=== PATIENT | female | born 1960 | race Caucasian/White ===

== ENCOUNTER 2020-09-17 08:23 | Outpatient (REF) | payer BC, SELFPAY ==
[2020-09-17 09:16] LABS: MANUAL DIFF FLAG NO
[2020-09-17 09:34] LABS: Basophils Percent Auto 0.5 % (0-2); Eosinophils Absolute Auto 0.2 X10*3/uL (0.0-0.4); Eosinophils Percent Auto 2.6 % (0-4); Hematocrit 41.7 % (37-47); Hemoglobin 13.6 g/dl (12.0-16.0); Imm Gran Abs Auto 0.01 X10*3/uL (0.00-0.03); Imm Gran Pct Auto 0.1 % (0.0-0.4); Lymphocytes Absolute Auto 2.9 X10*3/uL (1.2-4.9); Lymphocytes Percent Auto 36.7 % (20-40); Mean Corpuscular HGB Conc 32.6 g/dl (31.0-35.0); Mean Corpuscular Hemoglobin 28.9 pg (27.0-33.0); Mean Corpuscular Volume 88.7 fL (80-98); Mean Platelet Volume 10.2 fL (9.4-12.3); Monocytes Absolute Auto 0.4 X10*3/uL (0.1-1.2); Monocytes Percent Auto 5.6 % (2-11); Neutrophils Absolute Auto 4.3 X10*3/uL (2.0-8.3); Neutrophils Percent Auto 54.5 % (45-73); Platelet Count 230 X10*3/uL (160-400); Red Cell Distribution Width 12.2 % (11.0-16.0); White Blood Count 7.8 X10*3/uL (4.8-10.8)
[2020-09-17 09:36] LABS: Alanine Aminotransferase 35 U/L (0-31); Albumin Level 4.4 g/dL (3.5-5.0); Alkaline Phosphatase 67 U/L (39-117); Anion Gap 11 (12-20); Aspartate Amino Transferase 23 U/L (5-31); Bilirubin Total 0.6 mg/dL (0.0-1.0); Blood Urea Nitrogen 17 mg/dL (9-16); Calcium 9.3 mg/dL (8.4-10.2); Carbon Dioxide 32 mmol/L (22-29); Chloride 101 mmol/L (96-108); Cholesterol 211 mg/dL; Estimated Glomerular Filt Rate > 60; Glucose Fasting 107 mg/dL (60-99); HDL Cholesterol 52 mg/dL; LDL Cholesterol Calculated 129 mg/dl; Potassium 4.2 mmol/l (3.3-5.1); Sodium 140 mmol/L (135-145); Total Protein 7.7 g/dL (6.5-8.0); Triglycerides 153 mg/dL
[2020-09-17 09:44] LABS: Glucose Urine UA NEG (NEG); Leukocyte Esterase Urine NEG (NEG); Nitrite Urine NEG (NEG); Specific Gravity - Urine 1.025 (1.005-1.025); Urine Blood NEG (NEG); Urine Ketones NEG (NEG); Urine Protein NEG (NEG-TRACE)
[2020-09-17 09:48] LABS: Appearance Urine CLEAR; Color Urine YELLOW
[2020-09-17 09:56] LABS: TSH reflex Free T4 1.64 mIU/mL (0.32-4.0)
[2020-09-17 10:47] LABS: RBC Urine 0 /HPF (0); Squamous Epithelial Cell Urine 2+ /LPF; WBC Urine 0 /HPF (0-4)
== END 2020-09-17 08:24 | disposition home or self-care (01) ==
LOC: HO.LAB 08:23
PROVIDERS: PCP Internal Medicine; Visit Provider Internal Medicine
DX: E78.00 Pure hypercholesterolemia, unspecified (principal); I10 Essential (primary) hypertension; R79.89 Other specified abnormal findings of blood chemistry; R73.01 Impaired fasting glucose; K21.9 Gastro-esophageal reflux disease without esophagitis; E66.9 Obesity, unspecified
CPT/HCPCS: 36415; 80053; 80061; 81001; 84443; 85025

== ENCOUNTER 2020-12-17 08:16 | Outpatient (REF) | payer BC, SELFPAY ==
[2020-12-17 09:02] LABS: MANUAL DIFF FLAG NO
[2020-12-17 09:06] LABS: Basophils Percent Auto 0.4 % (0-2); Eosinophils Absolute Auto 0.1 X10*3/uL (0.0-0.4); Eosinophils Percent Auto 1.6 % (0-4); Hematocrit 40.8 % (37-47); Hemoglobin 13.6 g/dl (12.0-16.0); Imm Gran Abs Auto 0.02 X10*3/uL (0.00-0.03); Imm Gran Pct Auto 0.3 % (0.0-0.4); Lymphocytes Absolute Auto 2.5 X10*3/uL (1.2-4.9); Lymphocytes Percent Auto 37.7 % (20-40); Mean Corpuscular HGB Conc 33.3 g/dl (31.0-35.0); Mean Corpuscular Hemoglobin 29.8 pg (27.0-33.0); Mean Corpuscular Volume 89.5 fL (80-98); Mean Platelet Volume 9.9 fL (9.4-12.3); Monocytes Absolute Auto 0.5 X10*3/uL (0.1-1.2); Monocytes Percent Auto 7.4 % (2-11); Neutrophils Absolute Auto 3.5 X10*3/uL (2.0-8.3); Neutrophils Percent Auto 52.6 % (45-73); Platelet Count 221 X10*3/uL (160-400); Red Blood Count 4.56 X10*6/uL (4.20-5.50); Red Cell Distribution Width 13.1 % (11.0-16.0); White Blood Count 6.7 X10*3/uL (4.8-10.8)
[2020-12-17 09:08] LABS: Glucose Urine UA NEG (NEG); Leukocyte Esterase Urine 1+ (NEG); Nitrite Urine NEG (NEG); PH 8.5 (5.0-8.0); Specific Gravity - Urine 1.015 (1.005-1.025); UACC Culture Trigger YES; Urine Blood NEG (NEG); Urine Ketones NEG (NEG); Urine Protein NEG (NEG-TRACE)
[2020-12-17 09:10] LABS: Color Urine YELLOW
[2020-12-17 09:11] LABS: Appearance Urine CLOUDY
[2020-12-17 09:30] LABS: Amorphous Sediment Urine 3+ /LPF; Mucus Urine 1+ /LPF; RBC Urine 0 /HPF (0); Renal Epithelial Cells Urine 1+ /LPF; Squamous Epithelial Cell Urine 3+ /LPF
[2020-12-17 09:41] LABS: Alanine Aminotransferase 71 U/L (0-31); Albumin Level 4.4 g/dL (3.5-5.0); Alkaline Phosphatase 76 U/L (39-117); Anion Gap 13 (12-20); Aspartate Amino Transferase 41 U/L (5-31); Bilirubin Total 0.7 mg/dL (0.0-1.0); Blood Urea Nitrogen 13 mg/dL (9-16); Calcium 9.6 mg/dL (8.4-10.2); Carbon Dioxide 31 mmol/L (22-29); Chloride 102 mmol/L (96-108); Cholesterol 234 mg/dL; Estimated Glomerular Filt Rate > 60; Glucose Fasting 110 mg/dL (60-99); HDL Cholesterol 56 mg/dL; LDL Cholesterol Calculated 157 mg/dl; Potassium 4.5 mmol/L (3.3-5.1); Sodium 141 mmol/L (135-145); Total Protein 7.8 g/dL (6.5-8.0); Triglycerides 109 mg/dL
== END 2020-12-17 08:17 | disposition home or self-care (01) ==
LOC: HO.LAB 08:16
PROVIDERS: PCP Internal Medicine; Visit Provider Internal Medicine
DX: I10 Essential (primary) hypertension (principal); K21.9 Gastro-esophageal reflux disease without esophagitis; R73.01 Impaired fasting glucose; E78.00 Pure hypercholesterolemia, unspecified; R79.89 Other specified abnormal findings of blood chemistry; E66.9 Obesity, unspecified
CPT/HCPCS: 36415; 80053; 80061; 81001; 81003; 84443; 85025; 87086; 87147

== ENCOUNTER 2021-02-25 08:09 | Outpatient (REF) | payer BC, SELFPAY ==
--- NOTE | ~2021-02-25 | MM_ITS ---
EXAMINATION: MM SCREENING DIGITAL BREAST TOMOSYNTHESIS, BILATERAL CLINICAL INFORMATION: Screening. Asymptomatic. The lifetime risk of breast cancer based on the Tyrer-Cuzick Model is 7%. COMPARISON: Mammography: 10/31/2019, 09/13/2018, 07/21/2016 TECHNIQUE: Digital breast tomosynthesis is performed in both the craniocaudal and mediolateral oblique views along with computer-aided detection (CAD). Synthesized 2D images are generated from the tomosynthesis. Additional left CC view is provided. FINDINGS: There are scattered areas of fibroglandular density (ACR BI-RADS breast composition Category b). There are no significant masses, abnormal calcifications, or other abnormalities. Parenchymal pattern is similar to prior studies. There is no developing density. No significant changes. MM/MM tomosynthesis screening BI IMPRESSION: No mammographic evidence of malignancy. ASSESSMENT: BI-RADS 1: Negative RECOMMENDATION: Routine annual mammography screening. This patient's information was entered into a reminder system with a target due date for their next mammogram.
== END 2021-02-25 08:10 | disposition home or self-care (01) ==
LOC: HO.MAMMO 08:09
PROVIDERS: PCP Internal Medicine; Visit Provider Internal Medicine
DX: Z12.31 Encounter for screening mammogram for malignant neoplasm of breast (principal)
CPT/HCPCS: 77063; 77067

== ENCOUNTER 2021-04-22 07:23 | Outpatient (REF) | payer BC, SELFPAY ==
[2021-04-22 08:45] LABS: MANUAL DIFF FLAG NO
[2021-04-22 08:49] LABS: Basophils Percent Auto 0.5 % (0-2); Eosinophils Absolute Auto 0.2 X10*3/uL (0.0-0.4); Eosinophils Percent Auto 2.7 % (0-4); Hemoglobin 13.3 g/dl (12.0-16.0); Imm Gran Abs Auto 0.02 X10*3/uL (0.00-0.03); Imm Gran Pct Auto 0.2 % (0.0-0.4); Lymphocytes Absolute Auto 2.7 X10*3/uL (1.2-4.9); Lymphocytes Percent Auto 32.8 % (20-40); Mean Corpuscular HGB Conc 32.4 g/dl (31.0-35.0); Mean Corpuscular Hemoglobin 28.7 pg (27.0-33.0); Mean Corpuscular Volume 88.4 fL (80-98); Mean Platelet Volume 10.1 fL (9.4-12.3); Monocytes Absolute Auto 0.5 X10*3/uL (0.1-1.2); Monocytes Percent Auto 6.6 % (2-11); Neutrophils Absolute Auto 4.7 X10*3/uL (2.0-8.3); Neutrophils Percent Auto 57.2 % (45-73); Platelet Count 244 X10*3/uL (160-400); Red Blood Count 4.64 X10*6/uL (4.20-5.50); Red Cell Distribution Width 13.2 % (11.0-16.0); White Blood Count 8.2 X10*3/uL (4.8-10.8)
[2021-04-22 09:11] LABS: Estimated Average Glucose 117 mg/dL; Hemoglobin A1c % 5.7 %
[2021-04-22 09:16] LABS: Alanine Aminotransferase 31 U/L (0-31); Albumin Level 4.3 g/dL (3.5-5.0); Alkaline Phosphatase 76 U/L (39-117); Anion Gap 12 (12-20); Aspartate Amino Transferase 24 U/L (5-31); Bilirubin Total 0.6 mg/dL (0.0-1.0); Blood Urea Nitrogen 19 mg/dL (9-16); Calcium 9.3 mg/dL (8.4-10.2); Carbon Dioxide 31 mmol/L (22-29); Chloride 102 mmol/L (96-108); Cholesterol 209 mg/dL; Estimated Glomerular Filt Rate > 60; Glucose Fasting 109 mg/dL (60-99); HDL Cholesterol 56 mg/dL; LDL Cholesterol Calculated 128 mg/dl; Potassium 3.9 mmol/L (3.3-5.1); Sodium 141 mmol/L (135-145); Total Protein 7.5 g/dL (6.5-8.0); Triglycerides 127 mg/dL
[2021-04-22 09:37] LABS: TSH reflex Free T4 1.57 uIU/mL (0.32-4.0)
[2021-04-22 10:10] LABS: Glucose Urine UA NEG (NEG); Leukocyte Esterase Urine 1+ (NEG); Nitrite Urine NEG (NEG); PH 6.5 (5.0-8.0); Specific Gravity - Urine 1.015 (1.005-1.025); UACC Culture Trigger YES; Urine Blood NEG (NEG); Urine Ketones NEG (NEG); Urine Protein NEG (NEG-TRACE)
[2021-04-22 10:11] LABS: Appearance Urine HAZY; Color Urine YELLOW
[2021-04-22 10:19] LABS: Mucus Urine 1+ /LPF; RBC Urine 0 /HPF (0); Renal Epithelial Cells Urine TRACE /LPF; Squamous Epithelial Cell Urine TRACE /LPF
== END 2021-04-22 07:24 | disposition home or self-care (01) ==
LOC: HO.LAB 07:23
PROVIDERS: PCP Internal Medicine; Visit Provider Internal Medicine
DX: I10 Essential (primary) hypertension (principal); R73.01 Impaired fasting glucose; K21.9 Gastro-esophageal reflux disease without esophagitis; E78.00 Pure hypercholesterolemia, unspecified; E66.9 Obesity, unspecified; R79.89 Other specified abnormal findings of blood chemistry
CPT/HCPCS: 36415; 80053; 80061; 81001; 81003; 83036; 84443; 85025; 87086

== ENCOUNTER 2021-05-27 10:25 | Outpatient (REF) | payer BC, SELFPAY ==
[2021-05-28 09:02] LABS: BV Int Neg Control Negative (Negative); BV Int Pos Control Positive (Positive)
== END 2021-05-27 10:26 | disposition home or self-care (01) ==
LOC: HO.LAB 10:25
PROVIDERS: PCP Internal Medicine; Visit Provider Advanced Practice Midwife
DX: Z01.411 Encounter for gynecological examination (general) (routine) with abnormal findings (principal); N89.8 Other specified noninflammatory disorders of vagina; N95.1 Menopausal and female climacteric states; R35.0 Frequency of micturition
CPT/HCPCS: 87480; 87510; 87660

== ENCOUNTER 2021-08-26 08:24 | Outpatient (REF) | payer BC, SELFPAY ==
[2021-08-26 08:42] LABS: MANUAL DIFF FLAG NO
[2021-08-26 08:59] LABS: Basophils Percent Auto 0.5 % (0-2); Eosinophils Absolute Auto 0.2 X10*3/uL (0.0-0.4); Eosinophils Percent Auto 3.1 % (0-4); Hematocrit 41.6 % (37.0-47.0); Hemoglobin 13.4 g/dl (12.0-16.0); Imm Gran Abs Auto 0.01 X10*3/uL (0.00-0.03); Imm Gran Pct Auto 0.2 % (0.0-0.4); Lymphocytes Absolute Auto 2.4 X10*3/uL (1.2-4.9); Lymphocytes Percent Auto 38.1 % (20-40); Mean Corpuscular HGB Conc 32.2 g/dl (31.0-35.0); Mean Corpuscular Hemoglobin 28.8 pg (27.0-33.0); Mean Corpuscular Volume 89.5 fL (80.0-98.0); Mean Platelet Volume 9.8 fL (9.4-12.3); Monocytes Absolute Auto 0.4 X10*3/uL (0.1-1.2); Monocytes Percent Auto 6.3 % (2-11); Neutrophils Absolute Auto 3.21 x10*3/uL (2.0-8.3); Neutrophils Percent Auto 51.8 % (45-73); Platelet Count 217 X10*3/uL (160-400); Red Blood Count 4.65 X10*6/uL (4.20-5.50); Red Cell Distribution Width 13.1 % (11.0-16.0); White Blood Count 6.2 X10*3/uL (4.8-10.8)
[2021-08-26 09:28] LABS: Alanine Aminotransferase 34 U/L (0-31); Albumin Level 4.3 g/dL (3.5-5.0); Alkaline Phosphatase 70 U/L (39-117); Anion Gap 12 (12-20); Aspartate Amino Transferase 26 U/L (5-31); Bilirubin Total 0.4 mg/dL (0.0-1.0); Blood Urea Nitrogen 14 mg/dL (9-16); Calcium 9.4 mg/dL (8.4-10.2); Carbon Dioxide 30 mmol/L (22-29); Chloride 103 mmol/L (96-108); Cholesterol 190 mg/dL; Estimated Glomerular Filt Rate > 60; Glucose Fasting 107 mg/dL (60-99); HDL Cholesterol 46 mg/dL; LDL Cholesterol Calculated 108 mg/dl; Potassium 4.1 mmol/L (3.3-5.1); Sodium 141 mmol/L (135-145); Total Protein 7.5 g/dL (6.5-8.0); Triglycerides 181 mg/dL
[2021-08-26 09:51] LABS: Vitamin D 25-OH Total 38.7 ng/mL (>30)
[2021-08-26 10:13] LABS: Appearance Urine CLOUDY; Color Urine YELLOW; Glucose Urine UA NEG (NEG); Leukocyte Esterase Urine 1+ (NEG); Nitrite Urine NEG (NEG); PH 7.5 (5.0-8.0); Specific Gravity - Urine 1.015 (1.005-1.025); UACC Culture Trigger YES; Urine Blood NEG (NEG); Urine Ketones NEG (NEG); Urine Protein NEG (NEG-TRACE)
[2021-08-26 10:26] LABS: Renal Epithelial Cells Urine 1+ /LPF; Squamous Epithelial Cell Urine 1+ /LPF
[2021-08-26 10:27] LABS: Amorphous Sediment Urine 3+ /LPF
[2021-08-26 10:49] LABS: Estimated Average Glucose 120 mg/dL; Hemoglobin A1c % 5.8 %
== END 2021-08-26 08:25 | disposition home or self-care (01) ==
LOC: HO.LAB 08:24
PROVIDERS: PCP Internal Medicine; Visit Provider Internal Medicine
DX: K21.9 Gastro-esophageal reflux disease without esophagitis (principal); E55.9 Vitamin D deficiency, unspecified; E78.00 Pure hypercholesterolemia, unspecified; R73.01 Impaired fasting glucose; R79.89 Other specified abnormal findings of blood chemistry; E66.9 Obesity, unspecified; I10 Essential (primary) hypertension
CPT/HCPCS: 36415; 80053; 80061; 81001; 81003; 82306; 83036; 84443; 85025; 87086; 87147

== ENCOUNTER → 2021-10-06 14:38 | Outpatient (BNVA) | payer BC, SELFPAY | PROVIDERS: PCP Internal Medicine; Referring Provider Internal Medicine; Visit Provider Internal Medicine Gastroenterology ==

== ENCOUNTER 2021-11-25 11:25 | Day surgery (SDC) | payer BC, SELFPAY ==
--- NOTE | 2021-11-24 11:47 | HO.ANESPROP2 ---
Documented by User: Ailyn Pelletier NP 11/24/21 11:48 HPI - Anesthesia Eval Consult details Narrative: 61yo F for Upper Endoscopy and Colonoscopy [facility] Active Problems Active Problems: All Active Problems (Updated 09/02/21 @ 11:06 by Sandip Ricardo MD) Chronic sore throat (Acute) Dysphagia (Acute) Solitary bone cyst of right foot (Acute) Varicose veins of both lower extremities with pain (Acute) Aphthous ulcer of mouth (Acute) Obesity (BMI 30-39.9) (Acute) Anxiety (Acute) GERD without esophagitis (Acute) Impaired fasting glucose (Acute) Elevated LFTs (Acute) Pure hypercholesterolemia (Acute) Benign essential hypertension (Acute) Past Medical History Medical History Anxiety Aphthous ulcer of mouth Benign essential hypertension Dysphagia Elevated LFTs GERD without esophagitis Impaired fasting glucose Obesity (BMI 30-39.9) Pure hypercholesterolemia 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 extremities with pain Family History Family History Father Colon cancer Diabetes Mother Diabetes GERD (gastroesophageal reflux disease) Daughter Eating disorder Bipolar 1 disorder Surgical History Surgical History History of biopsy History of bladder surgery History of colectomy History of colonoscopy History of foot surgery History of hemorrhoidectomy History of partial hysterectomy History of removal of cyst S/P bilateral salpingo-oophorectomy Social History Social History Housing: House Alcohol intake: never Patient Tobacco Use Status: Never used Tobacco Second Hand Smoke Exposure: Yes Are you DNR?: No Advance Directives: No Advance Directives Information Provided: No service: No Current occupational status: employed 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 Allergy/AdvReac Type Severity Reaction Status Date / Time latex [Latex] Allergy Intermediate RASH Verified 11/25/21 12:26 shell fish Allergy Unknown Anaphylaxis Verified 11/25/21 12:26 PEANUT BUTTER Allergy Severe ANAPHYLAXIS Uncoded 11/25/21 12:26 Home Medications Medication Instructions Recorded Confirmed Last Taken Type aspirin 81 mg chewable tablet 81 mg PO DAILY 09/28/20 11/20/21 Unknown History multivitamin with minerals 1 tab PO DAILY 05/27/21 11/20/21 Unknown History (Hair,Skin and Nails) calcium carb 300 mg-D3 800 1 tab PO DAILY 10/06/21 11/20/21 Unknown History unit-mag ox 25 mg-photocopying machine operator 0.5 mg-jose-Zn tablet (Caltrate + D3 Plus Minerals) cholecalciferol (vitamin D3) 25 25 mcg PO DAILY 10/06/21 11/20/21 Unknown History mcg (1,000 unit) capsule losartan 100 mg tablet 50 mg PO DAILY tab 10/06/21 11/20/21 11/25/21 History mecobalamin (vitamin B12) 5,000 mcg PO 10/06/21 Unknown History mcg disintegrating tablet Exam Exam Date and Time: November 24, 2021 114 Pertinent Lab Results Pertinent Lab Results: Laboratory Tests 08/26/21 08/26/21 08:33 08:33 WBC 6.2 Hgb 13.4 Hct 41.6 Plt Count 217 Sodium 141 Potassium 4.1 Chloride 103 Carbon Dioxide 30 H BUN 14 Creatinine 0.73 Assessment and Plan Assessment Anesthesia Assessment: Chart Reviewed Documented by User: Whitney Downey MD 11/25/21 13:02 PMFSH Past Medical History Medical History Anxiety Aphthous ulcer of mouth Benign essential hypertension Dysphagia Elevated LFTs GERD without esophagitis Impaired fasting glucose Obesity (BMI 30-39.9) Pure hypercholesterolemia 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 extremities with pain Family History Family History Father Colon cancer Diabetes Mother Diabetes GERD (gastroesophageal reflux disease) Daughter Eating disorder Bipolar 1 disorder Surgical History Surgical History History of biopsy History of bladder surgery History of colectomy History of colonoscopy History of foot surgery History of hemorrhoidectomy History of partial hysterectomy History of removal of cyst S/P bilateral salpingo-oophorectomy History of Problems with Anesthesia: No Social History Social History Housing: House Alcohol intake: never Patient Tobacco Use Status: Never used Tobacco Second Hand Smoke Exposure: Yes Are you DNR?: No Advance Directives: No Advance Directives Information Provided: No service: No Current occupational status: employed 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 Allergy/AdvReac Type Severity Reaction Status Date / Time latex [Latex] Allergy Intermediate RASH Verified 11/25/21 12:26 shell fish Allergy Unknown Anaphylaxis Verified 11/25/21 12:26 PEANUT BUTTER Allergy Severe ANAPHYLAXIS Uncoded 11/25/21 12:26 Home Medications Medication Instructions Recorded Confirmed Last Taken Type aspirin 81 mg chewable tablet 81 mg PO DAILY 09/28/20 11/20/21 Unknown History multivitamin with minerals 1 tab PO DAILY 05/27/21 11/20/21 Unknown History (Hair,Skin and Nails) calcium carb 300 mg-D3 800 1 tab PO DAILY 10/06/21 11/20/21 Unknown History unit-mag ox 25 mg-photocopying machine operator 0.5 mg-jose-Zn tablet (Caltrate + D3 Plus Minerals) cholecalciferol (vitamin D3) 25 25 mcg PO DAILY 10/06/21 11/20/21 Unknown History mcg (1,000 unit) capsule losartan 100 mg tablet 50 mg PO DAILY tab 10/06/21 11/20/21 11/25/21 History mecobalamin (vitamin B12) 5,000 mcg PO 10/06/21 Unknown History mcg disintegrating tablet Exam Airway Mallampati Class: II Neck ROM: Full Loose/Missing/Broken Teeth: No Heart: RRR Lungs: CTA Assessment and Plan Assessment Anesthesia Assessment: Anesthesia Plan Discussed Final Anesthetic Review History of Problems with Anesthesia: No NPO: Yes ASA Class: II Final Preanesthetic Review: Meds/Allgs Chart Reviewed, Consent Obtained/Reviewed and Anes Risks/Benef Reviewed Patient Risk: Low Procedure Risk: Low Anesthetic Plan Anesthetic Plan: MAC: Disposition: Standard PACU
[2021-11-25 12:10] VITALS: BP 177/80; PULSE 88; RESP 18; TEMP 36.7; O2SAT 98; BMI 28.4
--- NOTE | 2021-11-25 12:17 | MHC.SHP ---
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) History of Previous Operations: Relevant previous surgery/procedure and date(s) (History of biopsy History of bladder surgery History of colonoscopy History of foot surgery History of hemorrhoidectomy History of partial hysterectomy History of removal of cyst S/P bilateral salpingo-oophorectomy) Allergies: Allergies Allergy/AdvReac Type Severity Reaction Status Date / Time latex [Latex] Allergy Intermediate RASH Verified 11/20/21 10:47 shell fish Allergy Unknown Anaphylaxis Verified 11/20/21 10:47 PEANUT BUTTER Allergy Severe ANAPHYLAXIS Uncoded 11/20/21 10:47 Review of Systems Sugical H&P ROS: Negative: Constitution, Cardiovascular, Respiratory, Neurological, Psychiatric, Hem-Onc, Allergic/Immunologic, Gastrointestinal, Genitourinary, Musculoskeletal, Integumentary, Endocrine and Eyes/Ears/Nose/Throat Exam Surgical H&P Exam: Normal: HEENT, Normal: Heart, Normal: Lungs, Normal: Extremities, Normal: Abdomen, Normal: Skin and Normal: Neurological Plan Diagnosis/Plan: Unchanged I have reviewed the history and physical and performed a pertinent physical examination on my patient. No changes have occurred unless specified.
[2021-11-25] MEDS: Lactated Ringers 1,000 ML 100 ML IVCONT (12:37)
--- NOTE | 2021-11-25 12:45 | P.OP_ITS ---
Operative Note Operative Note Date of Service: 11/25/21 Narrative: Operative Information Procedure Description: EGD, Colonoscopy FLEXIBLE TRANSORAL UPPER GASTROINTESTINAL ENDOSCOPY AND COLONOSCOPY PROCEDURE NOTE UPPER ENDOSCOPY Consent: Indications for the procedure and potential complications of bleeding, perforation, reaction to medications and missed diagnosis were discussed with the patient and informed consent was obtained. Instrument: Olympus GIF H 190 J mid size upper endoscope Monitoring: Vital signs and clinical assessment, continuous EKG monitoring, Pulse oximetry, Carbon Dioxide monitoring and blood pressure monitoring were done throughout the procedure. Procedure: The patient was placed in the left lateral decubitis position and pre-procedure medications were administered and a bite block was placed. The endoscope was inserted into the mouth and advanced under direct vision to the third part of duodenum. A careful inspection was made as the upper endoscope was withdrawn including a retroflexed examination of the proximal stomach; Findings and interventions are described below. Findings: Larynx:normal Esophagus: GE junction at 38 cm, diaphragm hiatus at 38 cm, mild erythema and edema of GEJ, bx taken from GEJ and random esophagus. Balloon dilation done to 18 mm at LES and UES, small bruise seen at UES. LES did seem lax. non obstructive schatzki ring seen. Stomach: Many fundic gland appearing polyps, some on larger side, biopsies taken. Few polyps were removed with cold snare as they had pit pattern suggestive of adenoma, measuring about 8-10 mm. Biopsies were obtained. Grade 3 flap valve on retroflexed examination of the cardia. Duodenum: Normal bulb and descending duodenum, bx taken Intervention: Biopsies as noted above, balloon dilation, snare polypectomy COLONOSCOPY Instrument: Olympus variable stiffness pediatric scope 190L Colonoscopy Monitoring: Vital signs and clinical assessment, continuous EKG monitoring, Pulse oximetry, Carbon Dioxide monitoring and blood pressure monitoring were done throughout the procedure. Colon withdrawal time was 6 minutes. Procedure: The patient was placed in the left lateral decubitis position and pre-procedure medications were administered. After a digital rectal examination of the ano-rectum, the video colonoscope was inserted into the rectum and advanced through the colon to the cecum/TI. The colonoscope was slowly withdrawn in a retrograde panoramic fashion and the colon mucosa was carefully examined including a retroflexed view of the rectum. Findings and interventions are described below. Procedure Difficulty: easy Findings: Terminal Ileum-normal Cecum:normal Ascending Colon: normal Transverse Colon -normal Descending Colon:normal Sigmoid Colon: normal Rectum: Retroflexion with small internal hemorrhoids, grade I Anorectum - normal Colon preparation: [place] Bowel Preparation Scale Right colon; 2 Transverse colon: 2 Left colon; 2 (0 = Unprepared colon segment with mucosa not seen due to solid stool that cannot be cleared. 1 = Portion of mucosa of the colon segment seen, but other areas of the colon segment not well seen due to staining, residual stool and/or opaque liquid. 2 = Minor amount of residual staining, small fragments of stool and/or opaque liquid, but mucosa of colon segment seen well. 3 = Entire mucosa of colon segment seen well with no residual staining, small fragments of stool or opaque liquid) Impression and Post Procedure Diagnosis: Endoscopy Findings: schatzki ring lax LES gastric polyps Colonoscopy Findings: internal hemorrhoids Plan: Await Pathology results Repeat Colonoscopy in 10 years or earlier if clinically indicated High fiber diet leaflet avoid straining at stool, epsom salts and sitz bath, anusol supps or cream may have to change PPI to H2 fidel or carafate Above findings were reviewed with the patient and relevant handouts were provided if indicated.
--- NOTE | 2021-11-25 12:45 | PM.OP ---
Brief Operative Note Date of Service: 11/25/21 Pre-op diagnosis: dysphagia, colon screening Post-op diagnosis: same Procedure: see op note Surgeon: Galen Levi MD Anesthesia: MAC Was an Repairer Resistance Welding Machines used for this Procedure?: No Estimated blood loss (mL): 0 Condition: stable Disposition: PACU
[2021-11-25 13:45] VITALS: BP 99/48; PULSE 69; RESP 18; TEMP 36.3; O2SAT 97
[2021-11-25 14:00] VITALS: BP 132/75; PULSE 57; RESP 18; TEMP 36.3; O2SAT 99
== END 2021-11-25 14:36 ==
LOC: HO.SSS 11:25
PROVIDERS: PCP Internal Medicine; Visit Provider Internal Medicine Gastroenterology
PROC: (CPT 45378; principal; 2021-11-25 13:00)
DX: Z12.11 Encounter for screening for malignant neoplasm of colon (principal); K64.0 First degree hemorrhoids; K22.2 Esophageal obstruction; K21.9 Gastro-esophageal reflux disease without esophagitis; K22.4 Dyskinesia of esophagus; K31.7 Polyp of stomach and duodenum; K44.9 Diaphragmatic hernia without obstruction or gangrene; I10 Essential (primary) hypertension; F41.1 Generalized anxiety disorder; E78.5 Hyperlipidemia, unspecified; R73.01 Impaired fasting glucose; E66.9 Obesity, unspecified; Z68.31 Body mass index [BMI] 31.0-31.9, adult; Z79.899 Other long term (current) drug therapy; Z91.040 Latex allergy status; Z90.49 Acquired absence of other specified parts of digestive tract
CPT/HCPCS: 45378; 43251; 43249; 43239; 88305; 88342; C1726

== ENCOUNTER 2022-01-06 09:31 | Outpatient (REF) | payer BC, SELFPAY ==
[2022-01-06 10:06] LABS: MANUAL DIFF FLAG NO
[2022-01-06 10:23] LABS: Basophils Percent Auto 0.4 % (0-2); Eosinophils Absolute Auto 0.1 X10*3/uL (0.0-0.4); Eosinophils Percent Auto 1.9 % (0-4); Hemoglobin 13.9 g/dl (12.0-16.0); Imm Gran Abs Auto 0.02 X10*3/uL (0.00-0.03); Imm Gran Pct Auto 0.3 % (0.0-0.4); Lymphocytes Absolute Auto 2.4 X10*3/uL (1.2-4.9); Lymphocytes Percent Auto 33.1 % (20-40); Mean Corpuscular HGB Conc 32.3 g/dl (31.0-35.0); Mean Corpuscular Hemoglobin 28.8 pg (27.0-33.0); Mean Corpuscular Volume 89.2 fL (80.0-98.0); Mean Platelet Volume 10.5 fL (9.4-12.3); Monocytes Absolute Auto 0.5 X10*3/uL (0.1-1.2); Monocytes Percent Auto 6.7 % (2-11); Neutrophils Absolute Auto 4.2 x10*3/uL (2.0-8.3); Neutrophils Percent Auto 57.6 % (45-73); Platelet Count 217 X10*3/uL (160-400); Red Blood Count 4.82 X10*6/uL (4.20-5.50); Red Cell Distribution Width 12.9 % (11.0-16.0); White Blood Count 7.3 X10*3/uL (4.8-10.8)
[2022-01-06 10:49] LABS: Appearance Urine HAZY; Color Urine YELLOW; Estimated Average Glucose 114 mg/dL; Glucose Urine UA NEG (NEG); Hemoglobin A1c % 5.6 %; Leukocyte Esterase Urine 1+ (NEG); Nitrite Urine NEG (NEG); Specific Gravity - Urine 1.015 (1.005-1.025); UACC Culture Trigger YES; Urine Blood NEG (NEG); Urine Ketones NEG (NEG); Urine Protein NEG (NEG-TRACE)
[2022-01-06 11:03] LABS: Alanine Aminotransferase 28 U/L (0-31); Albumin Level 4.3 g/dL (3.5-5.0); Alkaline Phosphatase 73 U/L (39-117); Anion Gap 12 (12-20); Aspartate Amino Transferase 21 U/L (5-31); Bilirubin Total 0.9 mg/dL (0.0-1.0); Blood Urea Nitrogen 12 mg/dL (9-16); Calcium 9.8 mg/dL (8.4-10.2); Carbon Dioxide 32 mmol/L (22-29); Chloride 98 mmol/L (96-108); Cholesterol 174 mg/dL; Estimated Glomerular Filt Rate > 60; Glucose Fasting 100 mg/dL (60-99); HDL Cholesterol 52 mg/dL; LDL Cholesterol Calculated 104 mg/dl; Potassium 3.7 mmol/L (3.3-5.1); Sodium 138 mmol/L (135-145); Total Protein 7.6 g/dL (6.5-8.0); Triglycerides 93 mg/dL
[2022-01-06 11:04] LABS: Squamous Epithelial Cell Urine 1+ /LPF
[2022-01-06 11:05] LABS: Bacteria Urine TRACE /LPF
[2022-01-06 11:27] LABS: TSH reflex Free T4 1.18 uIU/mL (0.32-4.0); Vitamin D 25-OH Total 43.3 ng/mL (>30)
== END 2022-01-06 09:32 | disposition home or self-care (01) ==
LOC: HO.LAB 09:31
PROVIDERS: PCP Internal Medicine; Visit Provider Internal Medicine
DX: I10 Essential (primary) hypertension (principal); E55.9 Vitamin D deficiency, unspecified; E78.00 Pure hypercholesterolemia, unspecified; R73.01 Impaired fasting glucose
CPT/HCPCS: 36415; 80053; 80061; 81001; 82306; 83036; 84443; 85025; 87086; 87147

== ENCOUNTER → 2022-02-19 10:25 | Outpatient (BNVA) | payer BC, SELFPAY | PROVIDERS: PCP Internal Medicine; Referring Provider Internal Medicine; Visit Provider Internal Medicine Gastroenterology | DX: Z13.89 Encounter for screening for other disorder (principal) ==

== ENCOUNTER 2022-02-27 09:50 | Outpatient (REF) | payer BC, SELFPAY ==
--- NOTE | ~2022-02-27 | MM_ITS ---
EXAMINATION: MM SCREENING DIGITAL BREAST TOMOSYNTHESIS, BILATERAL CLINICAL INFORMATION: Screening. Asymptomatic. The lifetime risk of breast cancer based on the Tyrer-Cuzick Model is 5%. COMPARISON: Mammography: 02/25/2021, 10/31/2019, 09/13/2018 TECHNIQUE: Digital breast tomosynthesis is performed in both the craniocaudal and mediolateral oblique views along with computer-aided detection (CAD). Synthesized 2D images are generated from the tomosynthesis. Additional left CC view is provided. FINDINGS: There are scattered areas of fibroglandular density (ACR BI-RADS breast composition Category b). Parenchymal pattern is similar to prior studies. There are minor asymmetries similar to prior exams. No developing density or interval architectural abnormality. There are scattered bilateral round calcifications. Bilateral low axillary tail nodes on MLO views are stable. The skin contours are smooth. There are no significant changes. MM/MM tomosynthesis screening BI IMPRESSION: No mammographic evidence of malignancy. ASSESSMENT: BI-RADS 2: Benign RECOMMENDATION: Routine annual mammography screening. This patient's information was entered into a reminder system with a target due date for their next mammogram.
== END 2022-02-27 09:51 | disposition home or self-care (01) ==
LOC: HO.MAMMO 09:50
PROVIDERS: Visit Provider Internal Medicine
DX: Z12.31 Encounter for screening mammogram for malignant neoplasm of breast (principal)
CPT/HCPCS: 77063; 77067

== ENCOUNTER 2022-03-08 15:26 | Outpatient (REF) | payer BC, SELFPAY ==
[2022-03-11 12:57] LABS: H Pylori Breath Test Negative (Negative)
== END 2022-03-08 15:27 | disposition home or self-care (01) ==
LOC: HO.LNP 15:26
PROVIDERS: PCP Internal Medicine; Referring Provider Internal Medicine; Visit Provider Internal Medicine Gastroenterology
DX: A04.8 Other specified bacterial intestinal infections (principal)
CPT/HCPCS: 83013

== ENCOUNTER 2022-04-28 07:48 | Outpatient (REF) | payer BC, SELFPAY ==
[2022-04-28 08:01] LABS: MANUAL DIFF FLAG NO
[2022-04-28 09:11] LABS: Basophils Percent Auto 0.4 % (0-2); Eosinophils Absolute Auto 0.2 X10*3/uL (0.0-0.4); Eosinophils Percent Auto 2.3 % (0-4); Hematocrit 40.3 % (37.0-47.0); Hemoglobin 12.9 g/dl (12.0-16.0); Imm Gran Abs Auto 0.03 X10*3/uL (0.00-0.03); Imm Gran Pct Auto 0.4 % (0.0-0.4); Lymphocytes Percent Auto 25.6 % (20-40); Mean Corpuscular Hemoglobin 28.4 pg (27.0-33.0); Mean Corpuscular Volume 88.6 fL (80.0-98.0); Mean Platelet Volume 10.7 fL (9.4-12.3); Monocytes Absolute Auto 0.5 X10*3/uL (0.1-1.2); Monocytes Percent Auto 6.2 % (2-11); Neutrophils Absolute Auto 5.1 x10*3/uL (2.0-8.3); Neutrophils Percent Auto 65.1 % (45-73); Platelet Count 236 X10*3/uL (160-400); Red Blood Count 4.55 X10*6/uL (4.20-5.50); White Blood Count 7.9 X10*3/uL (4.8-10.8)
[2022-04-28 09:41] LABS: Alanine Aminotransferase 19 U/L (0-31); Albumin Level 4.3 g/dL (3.5-5.0); Alkaline Phosphatase 77 U/L (39-117); Anion Gap 11 (12-20); Aspartate Amino Transferase 17 U/L (5-31); Bilirubin Total 0.7 mg/dL (0.0-1.0); Blood Urea Nitrogen 14 mg/dL (9-16); Calcium 9.3 mg/dL (8.4-10.2); Carbon Dioxide 32 mmol/L (22-29); Chloride 101 mmol/L (96-108); Cholesterol 209 mg/dL; Estimated Glomerular Filt Rate > 60; Glucose Fasting 99 mg/dL (60-99); HDL Cholesterol 59 mg/dL; LDL Cholesterol Calculated 129 mg/dl; Potassium 3.9 mmol/L (3.3-5.1); Sodium 140 mmol/L (135-145); Total Protein 7.5 g/dL (6.5-8.0); Triglycerides 106 mg/dL
[2022-04-28 10:06] LABS: TSH reflex Free T4 1.84 uIU/mL (0.32-4.0); Vitamin D 25-OH Total 47.4 ng/mL (>30)
[2022-04-28 10:41] LABS: Appearance Urine CLEAR; Color Urine YELLOW; Glucose Urine UA NEG (NEG); Leukocyte Esterase Urine TRACE (NEG); Nitrite Urine NEG (NEG); Urine Blood NEG (NEG); Urine Ketones NEG (NEG); Urine Protein NEG (NEG-TRACE)
[2022-04-28 11:03] LABS: Calcium Oxalate Crystals Urine 4+ /LPF; RBC Urine 0 /HPF (0); Squamous Epithelial Cell Urine 2+ /LPF; WBC Urine 0-2 /HPF (0-4)
== END 2022-04-28 07:49 | disposition home or self-care (01) ==
LOC: HO.LAB 07:48
PROVIDERS: PCP Internal Medicine; Visit Provider Internal Medicine
DX: E78.00 Pure hypercholesterolemia, unspecified (principal); E55.9 Vitamin D deficiency, unspecified; I10 Essential (primary) hypertension
CPT/HCPCS: 36415; 80053; 80061; 81001; 82306; 84443; 85025

== ENCOUNTER 2022-05-19 10:51 | Outpatient (REF) | payer BC, SELFPAY ==
--- NOTE | ~2022-05-19 | MM_ITS ---
EXAMINATION: BONE DENSITOMETRY CLINICAL INDICATION: Asymptomatic postprocedural ovarian failure. COMPARISON: None (current study represents initial baseline exam). TECHNIQUE: Using a Xray Imatek DXA System (software version: 13.1) manufactured by [email or web address], dual-energy x-ray absorptiometry was performed of the lumbar spine and left hip. The images are of good technical quality. Summary results are attached. FINDINGS: AP SPINE L1-L3 (excluding L4): The data of L1-L4 has been changed to exclude the L4 vertebral body, because degenerative changes at this level may cause overestimation of lumbar spine density. BMD 0.781 g/cm2, Z-score -2.3, T-score -3.2, osteoporosis. LEFT FEMUR, NECK: BMD 0.704 g/cm2, Z-score -1.3, T-score -2.4, osteopenia. LEFT FEMUR, TOTAL: BMD 0.740 g/cm2, Z-score -1.4, T-score -2.1, osteopenia. IDENTIFIED RISK FACTORS: Menopause, height loss, bilateral oophorectomy, Thiazide. HISTORY OF FRACTURE: None listed. MEDICATIONS: Calcium, vitamin D. MM/XR DEXA axial skeleton IMPRESSION: 1. DIAGNOSIS: Osteoporosis based on the lowest T-score value of -3.2 in the lumbar spine applying World Health Organization criteria. 2. 10-YEAR FRACTURE RISK PREDICTION, FRAX: According to the guidelines, FRAX calculation should only be performed on patients in the osteopenia bone density category. Therefore, FRAX was not performed on this patient. 3. Treatment Recommendations: NOF guidelines recommend consideration for treatment in postmenopausal women and men age 50 and older presenting with the following: -A hip or vertebral (clinical or morphometric) fracture. -T-score less than or equal to -2.5 at the femoral neck or spine after appropriate evaluation to exclude secondary causes. -Low bone mass at the hip or spine and a 10-year fracture probability by FRAX of greater than or equal to 3% for hip fracture or greater than or equal to 20% for major osteoporotic fracture based on the [place] adapted WHO algorithm. 4. Other Recommendations: All treatment decisions require clinical judgment and consideration of individual patient factors, including patient preferences, comorbidities, previous drug use, risk factors not captured in the FRAX model (e.g. frailty, falls, vitamin D deficiency, increased bone turnover, interval significant decline in bone density) and possible under or overestimation of fracture risk by FRAX. Additional medical evaluation for secondary cause of low bone mineral density may be appropriate. FUTURE SCAN RECOMMENDATION: People with diagnosed cases of osteoporosis or at high risk for fracture should have regular bone mineral density tests. For patients eligible for Medicare, routine testing is allowed once every 2 years. The testing frequency can be increased to one year for patients who have rapidly progressing disease, those who are receiving or discontinuing medical therapy to restore bone mass, or have additional risk factors.
== END 2022-05-19 10:52 | disposition home or self-care (01) ==
LOC: HO.MAMMO 10:51
PROVIDERS: PCP Internal Medicine; Visit Provider Internal Medicine
DX: Z13.820 Encounter for screening for osteoporosis (principal); E89.40 Asymptomatic postprocedural ovarian failure; Z78.0 Asymptomatic menopausal state
CPT/HCPCS: 77080

== ENCOUNTER 2022-09-01 08:04 | Outpatient (REF) | payer BC, SELFPAY ==
[2022-09-01 08:16] LABS: MANUAL DIFF FLAG NO
[2022-09-01 09:09] LABS: Basophils Percent Auto 0.4 % (0-2); Eosinophils Absolute Auto 0.1 X10*3/uL (0.0-0.4); Eosinophils Percent Auto 1.1 % (0-4); Hematocrit 43.3 % (37.0-47.0); Hemoglobin 13.9 g/dl (12.0-16.0); Imm Gran Abs Auto 0.03 X10*3/uL (0.00-0.03); Imm Gran Pct Auto 0.3 % (0.0-0.4); Lymphocytes Absolute Auto 2.6 X10*3/uL (1.2-4.9); Mean Corpuscular HGB Conc 32.1 g/dl (31.0-35.0); Mean Corpuscular Hemoglobin 27.5 pg (27.0-33.0); Mean Corpuscular Volume 85.7 fL (80.0-98.0); Mean Platelet Volume 9.7 fL (9.4-12.3); Monocytes Absolute Auto 0.7 X10*3/uL (0.1-1.2); Monocytes Percent Auto 7.6 % (2-11); Neutrophils Absolute Auto 5.8 x10*3/uL (2.0-8.3); Neutrophils Percent Auto 62.6 % (45-73); Platelet Count 291 X10*3/uL (160-400); Red Blood Count 5.05 X10*6/uL (4.20-5.50); Red Cell Distribution Width 13.2 % (11.0-16.0); White Blood Count 9.2 X10*3/uL (4.8-10.8)
[2022-09-01 09:36] LABS: Alanine Aminotransferase 26 U/L (0-31); Albumin Level 4.6 g/dL (3.5-5.0); Alkaline Phosphatase 75 U/L (39-117); Anion Gap 16 (12-20); Aspartate Amino Transferase 23 U/L (5-31); Bilirubin Total 0.8 mg/dL (0.0-1.0); Blood Urea Nitrogen 13 mg/dL (9-16); Calcium 9.7 mg/dL (8.4-10.2); Carbon Dioxide 27 mmol/L (22-29); Chloride 98 mmol/L (96-108); Cholesterol 184 mg/dL; Estimated Glomerular Filt Rate > 60; Glucose Fasting 114 mg/dL (60-99); HDL Cholesterol 53 mg/dL; LDL Cholesterol Calculated 115 mg/dl; Potassium 3.2 mmol/L (3.3-5.1); Sodium 138 mmol/L (135-145); Total Protein 7.8 g/dL (6.5-8.0); Triglycerides 83 mg/dL
[2022-09-01 09:59] LABS: TSH reflex Free T4 0.99 uIU/mL (0.32-4.0); Vitamin D 25-OH Total 43.5 ng/mL (>30)
[2022-09-01 10:20] LABS: Appearance Urine Clear; Color Urine Yellow; Glucose Urine UA Negative (Negative); Leukocyte Esterase Urine Small (1+) (Negative); Nitrite Urine Negative (Negative); PH 6.5 (5.0-9.0); UMIC TRIGGER UACC YES; Urine Blood Negative (Negative); Urine Ketones Negative (Negative); Urine Protein Negative (Neg-Trace)
[2022-09-01 10:27] LABS: Bacteria Urine None Seen (None Seen); Hyaline Casts Urine 0-2 /LPF (0-2); RBC Urine 0-2 /HPF (0-2); UACC Culture Trigger YES; WBC Urine 0-5 /HPF (0-5)
== END 2022-09-01 08:05 | disposition home or self-care (01) ==
LOC: HO.LAB 08:04
PROVIDERS: PCP Internal Medicine; Visit Provider Internal Medicine
DX: E78.00 Pure hypercholesterolemia, unspecified (principal); E55.9 Vitamin D deficiency, unspecified; I10 Essential (primary) hypertension
CPT/HCPCS: 36415; 80053; 80061; 81001; 82306; 84443; 85025; 87086

== ENCOUNTER 2022-11-17 15:49 | Outpatient (REF) | payer BC, SELFPAY ==
--- NOTE | ~2022-11-17 | XR_ITS ---
EXAMINATION: XR CHEST CLINICAL INFORMATION: Cough COMPARISON: 04/17/2007 TECHNIQUE: 2 views of the chest were obtained. FINDINGS: The lungs are well expanded. There is no focal consolidation, edema, or effusion. No pneumothorax. The cardiomediastinal silhouette is within normal limits. No acute osseous abnormality. Mild degenerative changes of the spine. XR/XR chest 2V IMPRESSION: Clear lungs.
== END 2022-11-17 15:50 | disposition home or self-care (01) ==
LOC: HO.XRAY 15:49
PROVIDERS: PCP Internal Medicine; Visit Provider Internal Medicine
DX: R05.9 Cough, unspecified (principal)
CPT/HCPCS: 71046

== ENCOUNTER 2023-01-19 08:12 | Outpatient (REF) | payer BC, SELFPAY ==
[2023-01-19 08:32] LABS: MANUAL DIFF FLAG NO
[2023-01-19 08:44] LABS: Basophils Percent Auto 0.4 % (0-2); Eosinophils Absolute Auto 0.3 X10*3/uL (0.0-0.4); Eosinophils Percent Auto 4.1 % (0-4); Hematocrit 41.5 % (37.0-47.0); Hemoglobin 13.6 g/dl (12.0-16.0); Imm Gran Abs Auto 0.02 X10*3/uL (0.00-0.03); Imm Gran Pct Auto 0.3 % (0.0-0.4); Lymphocytes Absolute Auto 2.5 X10*3/uL (1.2-4.9); Lymphocytes Percent Auto 31.2 % (20-40); Mean Corpuscular HGB Conc 32.8 g/dl (31.0-35.0); Mean Corpuscular Hemoglobin 28.8 pg (27.0-33.0); Mean Corpuscular Volume 87.7 fL (80.0-98.0); Mean Platelet Volume 9.6 fL (9.4-12.3); Monocytes Absolute Auto 0.5 X10*3/uL (0.1-1.2); Monocytes Percent Auto 6.9 % (2-11); Neutrophils Absolute Auto 4.5 x10*3/uL (2.0-8.3); Neutrophils Percent Auto 57.1 % (45-73); Platelet Count 241 X10*3/uL (160-400); Red Blood Count 4.73 X10*6/uL (4.20-5.50); White Blood Count 7.9 X10*3/uL (4.8-10.8)
[2023-01-19 08:54] LABS: Estimated Average Glucose 114 mg/dL; Hemoglobin A1c % 5.6 %
[2023-01-19 09:18] LABS: Appearance Urine Clear; Color Urine Yellow; Glucose Urine UA Negative (Negative); Leukocyte Esterase Urine Trace (Negative); Nitrite Urine Negative (Negative); PH 7.5 (5.0-9.0); UMIC TRIGGER UACC YES; Urine Blood Negative (Negative); Urine Ketones Negative (Negative); Urine Protein Negative (Neg-Trace)
[2023-01-19 09:20] LABS: Alanine Aminotransferase 22 U/L (0-31); Albumin Level 4.3 g/dL (3.5-5.0); Alkaline Phosphatase 69 U/L (39-117); Anion Gap 12 (12-20); Aspartate Amino Transferase 18 U/L (5-31); Bilirubin Total 0.7 mg/dL (0.0-1.0); Blood Urea Nitrogen 19 mg/dL (9-16); Calcium 9.5 mg/dL (8.4-10.2); Carbon Dioxide 31 mmol/L (22-29); Chloride 102 mmol/L (96-108); Cholesterol 198 mg/dL; Estimated Glomerular Filt Rate > 60; Glucose Fasting 108 mg/dL (60-99); HDL Cholesterol 60 mg/dL; LDL Cholesterol Calculated 123 mg/dl; Potassium 4.1 mmol/L (3.3-5.1); Sodium 141 mmol/L (135-145); Total Protein 7.3 g/dL (6.5-8.0); Triglycerides 77 mg/dL
[2023-01-19 09:21] LABS: Bacteria Urine None Seen (None Seen); Hyaline Casts Urine 0-2 /LPF (0-2); RBC Urine 0-2 /HPF (0-2); WBC Urine 0-5 /HPF (0-5)
[2023-01-19 09:51] LABS: Folate 15.4 ng/mL (> or = 4.0); TSH reflex Free T4 1.63 uIU/mL (0.32-4.0); Vitamin B12 484 pg/mL (200-900); Vitamin D 25-OH Total 59.9 ng/mL (>30)
[2023-01-21 23:33] LABS: TS Negative Control Passed; TS Panel A 0; TS Panel B 0; TS Positive Control Passed; TSpotTB Negative (Negative)
== END 2023-01-19 08:13 | disposition home or self-care (01) ==
LOC: HO.LAB 08:12
PROVIDERS: PCP Internal Medicine; Visit Provider Internal Medicine
DX: Z11.1 Encounter for screening for respiratory tuberculosis (principal); E78.00 Pure hypercholesterolemia, unspecified; E55.9 Vitamin D deficiency, unspecified; I10 Essential (primary) hypertension; R73.01 Impaired fasting glucose; E53.8 Deficiency of other specified B group vitamins
CPT/HCPCS: 36415; 80053; 80061; 81001; 82306; 82607; 82746; 83036; 84443; 85025; 86481

== ENCOUNTER 2023-03-23 11:20 | Outpatient (REF) | payer BC, SELFPAY ==
--- NOTE | ~2023-03-23 | MM_ITS ---
EXAMINATION: MM SCREENING DIGITAL BREAST TOMOSYNTHESIS, BILATERAL CLINICAL INFORMATION: Screening. Asymptomatic. The lifetime risk of breast cancer based on the Tyrer-Cuzick Model is 5%. COMPARISON: Mammography: 02/27/2022, 02/25/2021, 10/31/2019 TECHNIQUE: Digital breast tomosynthesis is performed in both the craniocaudal and mediolateral oblique views along with computer-aided detection (CAD). Synthesized 2D images are generated from the tomosynthesis. FINDINGS: There are scattered areas of fibroglandular density (ACR BI-RADS breast composition Category b). Breast tissue composition borders on heterogeneously dense in the upper outer quadrant. The parenchymal pattern is similar to prior exams. No developing density or architectural abnormality. Scattered bilateral benign round calcifications are present. The axilla and skin contours are unremarkable. There are no significant masses, abnormal calcifications, or other abnormalities. No significant changes from prior studies. MM/MM tomosynthesis screening BI IMPRESSION: No mammographic evidence of malignancy. ASSESSMENT: BI-RADS 2: Benign RECOMMENDATION: Routine annual mammography screening. This patient's information was entered into a reminder system with a target due date for their next mammogram.
== END 2023-03-23 11:21 | disposition home or self-care (01) ==
LOC: HO.MAMMO 11:20
PROVIDERS: PCP Internal Medicine; Visit Provider Internal Medicine
DX: Z12.31 Encounter for screening mammogram for malignant neoplasm of breast (principal)
CPT/HCPCS: 77063; 77067

== ENCOUNTER 2023-04-26 02:13 | Emergency (ER) | payer BC, SELFPAY ==
[2023-04-26 02:25] VITALS: BP 149/77; PULSE 82; RESP 19; TEMP 36.8; O2SAT 100; BMI 29.0
[2023-04-26 03:01] VITALS: BP 148/69; PULSE 78; RESP 16; TEMP 37.2; O2SAT 98
--- NOTE | 2023-04-26 03:05 | MHC.EDTECH ---
PATIENT BLOOD DRAWN AND URINE COLLECTED AND SENT TO LAB .
[2023-04-26 04:00] VITALS: BP 155/75; PULSE 75; RESP 16; TEMP 37.3; O2SAT 98
--- NOTE | 2023-04-26 06:55 | ED.FEMALEGU ---
HPI - Female Genitourinary General Chief complaint: Urogenital-Female Stated complaint: Pain when urinaring Time Seen by Provider: 04/26/23 06:55 Source: patient Mode of arrival: ambulatory Limitations: no limitations History of Present Illness HPI Narrative: 63 yo female presents to the ER for evaluation of suprapubic pain, dysuria, urinary frequency and urgency for the last 1 month, worsening the last few days. She states she has tried OTC Azo without improvement in her symptoms. She states the pain is constant in the subrapubic area, worse with urination. No back pain, flank pain or fevers. No nausea or vomiting. She has had some loose stools lately. She denies getting recurrent UTIs. She reports history of bladder sling x2 in the past with recurrent prolapse and plans to get repair in June with Dr. Gonzalez. She denies any worsening symptoms. MD elicited complaint: dysuria and UTI Onset (ago): week(s) Location of symptoms: suprapubic and urethra Severity: moderate Female Urogenital Radiation: Suprapubic Quality of pain: burning and aching Consistency: constant Vaginal discharge: none Vaginal bleeding: none Urinary symptoms: Dysuria, Urgency and Frequency Exacerbating factors: urination Relieving factors: none Associated symptoms: prolapse (bladder - chronic ) Treatment prior to arrival: OTC urinary analgesics Sexual activity: No Related Data Home Medications Medication Instructions Recorded Confirmed aspirin 81 mg chewable tablet 81 mg PO DAILY 09/28/20 01/26/23 calcium carb 300 mg-D3 800 1 tab PO DAILY 10/06/21 01/26/23 unit-mag ox 25 mg-type copyist 0.5 mg-jose-Zn tablet (Caltrate + D3 Plus Minerals) cholecalciferol (vitamin D3) 25 25 mcg PO DAILY 10/06/21 01/26/23 mcg (1,000 unit) capsule mecobalamin (vitamin B12) 5,000 mcg PO 10/06/21 01/26/23 mcg disintegrating tablet multivit with 1 tab PO DAILY 09/08/22 01/26/23 onfvtjxd-bzaa-RX-lutein 8 mg iron-400 mcg-300 mcg tablet (Multivitamin Women 50 Plus) Previous Rx's Medication Instructions Recorded lorazepam 0.5 mg tablet 0.5 mg PO TID PRN anxiety 90 days 04/15/21 #270 tabs peg-electrolyte solution 420 gram 240 ml PO Q10M #4,000 mL 10/06/21 oral solution (Nulytely Lemon-Cabazon) simethicone 125 mg chewable tablet 125 mg PO TID PRN abdominal 11/12/21 (Gas Relief (simethicone)) distention #90 tabs sucralfate 100 mg/mL oral 10 ml PO TID #400 mL 02/19/22 suspension (Carafate) Ventolin HFA 90 mcg/actuation 2 puff inhalation Q6H PRN 11/23/22 aerosol inhaler (albuterol sulfate) shortness of breath or wheezing 30 days #18 grams losartan 50 mg tablet 50 mg PO DAILY 90 days #90 tabs 01/20/23 bupropion HCl 150 mg 24 hr tablet, 150 mg PO QAM 90 days #90 tabs 01/26/23 extended release hydrochlorothiazide 25 mg tablet 25 mg PO DAILY 90 days #90 tabs 01/26/23 metronidazole 500 mg tablet 500 mg PO BID 7 days #14 tabs 01/26/23 metronidazole 500 mg tablet 500 mg PO Q8H 7 days #21 tabs 02/28/23 fluconazole 150 mg tablet 150 mg PO DAILY 1 day #1 tab 04/15/23 omeprazole 20 mg capsule,delayed 20 mg PO BID 90 days #180 caps 04/15/23 release cefuroxime axetil 250 mg tablet 250 mg PO BID 7 days #14 tabs 04/26/23 phenazopyridine 100 mg tablet 100 mg PO TID PRN pain 6 doses #6 04/26/23 (Pyridium) tabs Allergies Allergy/AdvReac Type Severity Reaction Status Date / Time Peanut Butter Allergy Severe Anaphylaxis Verified 01/26/23 11:55 latex [Latex] Allergy Intermediate RASH Verified 01/26/23 11:55 shellfish derived Allergy Unknown Anaphylaxis Verified 01/26/23 11:55 Review of Systems Review of Systems: Yes all other systems are reviewed and are negative PMFSH Past Medical History Medical History Anxiety Aphthous ulcer of mouth Benign essential hypertension Dysphagia Elevated LFTs GERD without esophagitis Impaired fasting glucose Obesity (BMI 30-39.9) Pure hypercholesterolemia 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 Varicose veins of both lower extremities with pain Surgical History History of biopsy History of bladder surgery History of colectomy History of colonoscopy History of esophagogastroduodenoscopy (EGD) History of foot surgery History of hemorrhoidectomy History of partial hysterectomy History of removal of cyst S/P bilateral salpingo-oophorectomy Family History Family History Father Colon cancer Diabetes Mother Diabetes GERD (gastroesophageal reflux disease) Daughter Eating disorder Bipolar 1 disorder Social History Social History Housing: House Alcohol intake: never Patient Tobacco Use Status: Never used Tobacco Second Hand Smoke Exposure: Yes Advance Directives: No Advance Directives Information Provided: Yes service: No Current occupational status: employed 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 Oriented X3. No acute distress. Head: normocephalic, atraumatic. Eyes: Pupils equal, round and reactive to light. ENT: Pharynx normal. No tonsillar swelling or exudate. Neck: Normal inspection. Neck supple. CVS: Normal heart rate and rhythm. Pulses normal. Respiratory: No respiratory distress. Breath sounds normal. Abdomen: Soft with mild suprapubic tenderness without rebound or guarding, normal active +BS x4. pelvic deferred Skin: Skin warm and dry. Normal skin color. Normal skin turgor. No rashes. Extremities: No lower extremity edema. No joint swelling. Neuro/psych: Oriented X 3. No motor deficit. No sensory deficit. CN II-XII intact. Normal speech and cognition. Medications Administered Discontinued Medications Generic Name Dose Route Start Last Admin Trade Name Freq PRN Reason Stop Dose Admin Ceftriaxone Sodium 1 gm/ 50 mls @ 100 mls/hr 04/26/23 07:05 04/26/23 08:11 Sodium Chloride IV 04/26/23 07:34 100 mls/hr ONCE ONE Administration Sodium Chloride 1,000 mls @ 999 mls/hr 04/26/23 07:15 04/26/23 08:12 Ns IV 04/26/23 08:15 999 mls/hr .Q1H1M SYLVIE Administration Phenazopyridine HCl 100 mg 04/26/23 07:05 04/26/23 08:11 Phenazopyridine Hcl 100 Mg Tablet PO 04/26/23 07:06 100 mg ONCE ONE Administration Medical Decision Making Medical Decision Making [facility] Narrative: 63 yo female presenting with 1 month of urinary symptoms. She is afebrile and not tachycardic on arrival, nontoxic appearing. Her labs show a leukocytosis f 13.1. Normal kidney function. No CVA tenderness on exam. Doubt acute pyelonephritis. She has a grossly positive urinalysis. +RBC in urine likely due to bladder infection/cystitis rather than kidney stone or ascending infection. She is not septic. She was given 1 dose of IV rocephin and pyridium in the ER. She is stable for discharge home with oral antibiotics and outpatient follow up. we discussed return precautions and all questions were answered. Differential Diagnosis Differential Diagnoses: The differential diagnosis associated with the presentation includes acute lower UTI, pyelonephritis, kidney stone, infected bladder sling Admission/Observation Consideration of admission/observation: Escalation of care including admission/observation considered 63 yo female with urinary symptoms x1 month w/ +UTI, microscopic hematuria, leukocytosis and low grade fever. Lab Data [facility] Lab Attestation statement: I reviewed the patient's lab results. leukocytosis, normal kidney function 04/26/23 02:59 04/26/23 02:59 Labs: Lab Results 04/26/23 04/26/23 04/26/23 Range/Units 02:59 02:59 02:59 WBC 13.1 H (4.8-10.8) X10*3/uL RBC 4.66 (4.20-5.50) X10*6/uL Hgb 12.9 (12.0-16.0) g/dl Hct 39.3 (37.0-47.0) % MCV 84.3 (80.0-98.0) fL MCH 27.7 (27.0-33.0) pg MCHC 32.8 (31.0-35.0) g/dl RDW 13.0 (11.0-16.0) % Plt Count 219 (160-400) X10*3/uL MPV 9.5 (9.4-12.3) fL Immature Gran % (Auto) 0.2 (0.0-0.4) % Neut % (Auto) 75.8 H (45-73) % Lymph % (Auto) 14.8 L (20-40) % [place] % (Auto) 7.8 (2-11) % Eos % (Auto) 1.2 (0-4) % Baso % (Auto) 0.2 (0-2) % Lymph # (Auto) 1.9 (1.2-4.9) X10*3/uL [place] # (Auto) 1.0 (0.1-1.2) X10*3/uL Eos # (Auto) 0.2 (0.0-0.4) X10*3/uL Baso # (Auto) 0.0 (0.0-0.2) X10*3/uL Abs Immat Gran (auto) 0.03 (0.00-0.03) X10*3/uL Absolute Neuts (auto) 9.9 H (2.0-8.3) x10*3/uL Absolute Nucleated RBC 0.000 (0.0-0.012) X10*3/uL Nucleated RBC % (auto) 0.0 (0.0-0.2) /100WBC Sodium 141 (135-145) mmol/L Potassium 3.5 (3.3-5.1) mmol/L Chloride 103 (96-108) mmol/L Carbon Dioxide 27 (22-29) mmol/L Anion Gap 15 (12-20) BUN 14 (9-16) mg/dL Creatinine 0.84 (0.5-1.4) mg/dL Estim Creat Clear Calc 71.9 Estimated GFR > 60 Random Glucose 124 H (60-115) mg/dL Calcium 9.9 (8.4-10.2) mg/dL Total Bilirubin 0.9 (0.0-1.0) mg/dL AST 20 (5-31) U/L ALT 18 (0-31) U/L Alkaline Phosphatase 73 (39-117) U/L Total Protein 7.6 (6.5-8.0) g/dL Albumin 4.2 (3.5-5.0) g/dL Urine Color Dark Yellow Urine Appearance Turbid Urine pH 7.0 (5.0-9.0) Ur Specific [place] 1.020 (1.005-1.025) Urine Protein 300 (3+) H (Neg-Trace) mg/dL Urine Glucose (UA) Negative (Negative) mg/dL Urine Ketones Negative (Negative) mg/dL Urine Blood Large (3+) H (Negative) Urine Nitrite Positive H (Negative) Ur Leukocyte Esterase Large (3+) H (Negative) Urine RBC >20 H (0-2) /HPF Urine WBC >50 H (0-5) /HPF Ur Squamous Epith Cells 0-2 (0-2) /HPF Urine Bacteria 4+ (None Seen) Hyaline Casts 0-2 (0-2) /LPF External Record Review External record reviewed: Outpatient record, Prior outpatient labs and Prior outpatient radiology Tests considered The following testing was considered but not selected: CT scan abd/pelvis considered given blood in the urine and leukocytosis Prescription Management I considered prescription management with: Pain Medication and Antibiotic Chronic Conditions Patient?s care impacted by: Other (bladder prolapse) Critical Care Time Critical Care Time Critical Care Time: No Discharge Plan Discharge Clinical Impression: Acute UTI Patient Disposition: Home, Self-Care Instructions: Urinary Tract Infection in Women (DC) Additional Instructions: You have a UTI. You were given 1st dose of IV antibiotics in the ER today. Start the prescribed oral antibiotics 1st thing tomorrow morning. Do not miss any doses and complete the entire course. Drink plenty of fluids and stay hydrated. If you develop new or worsening symptoms call 911 or come back to the ER for further evaluation. Prescriptions: New cefuroxime axetil 250 mg tablet 250 mg PO BID 7 Days Qty: 14 0RF phenazopyridine [Pyridium] 100 mg tablet 100 mg PO TID PRN (Reason: pain) Qty: 6 0RF No Action lorazepam 0.5 mg tablet 0.5 mg PO TID PRN (Reason: anxiety) 90 Days Qty: 270 0RF simethicone [Gas Relief (simethicone)] 125 mg tablet,chewable 125 mg PO TID PRN (Reason: abdominal distention) Qty: 90 0RF albuterol sulfate [Ventolin HFA] 90 mcg/actuation HFA aerosol inhaler 2 puff inhalation Q6H PRN (Reason: shortness of breath or wheezing) 30 Days Qty: 18 0RF losartan 50 mg tablet 50 mg PO DAILY 90 Days Qty: 90 3RF metronidazole 500 mg tablet 500 mg PO Q8H 7 Days Qty: 21 0RF fluconazole 150 mg tablet 150 mg PO DAILY 1 Days Qty: 1 2RF omeprazole 20 mg capsule,delayed release(DR/EC) 20 mg PO BID 90 Days Qty: 180 1RF aspirin 81 mg tablet,chewable 81 mg PO DAILY bupropion HCl 150 mg tablet extended release 24 hr 150 mg PO QAM 90 Days Qty: 90 3RF hydrochlorothiazide 25 mg tablet 25 mg PO DAILY 90 Days Qty: 90 3RF metronidazole 500 mg tablet 500 mg PO BID 7 Days Qty: 14 0RF Multivitamin Women 50 Plus 8 mg iron-400 mcg-300 mcg tablet 1 tab PO DAILY cholecalciferol (vitamin D3) 25 mcg (1,000 unit) capsule 25 mcg PO DAILY mecobalamin (vitamin B12) 5,000 mcg tablet,disintegrating PO Caltrate + D3 Plus Minerals 300 mg-800 unit -25 mg-0.5 mg tablet 1 tab PO DAILY peg-electrolyte soln [Nulytely Lemon-Cabazon] 420 gram recon soln 240 ml PO Q10M Qty: 4000 0RF Rx Instructions: until fecal effluent is clear sucralfate [Carafate] 100 mg/mL suspension 10 ml PO TID Qty: 400 0RF Rx Instructions: swish in mouth and swallow; use after food/drink Referrals: Sandip Ricardo MD [Primary Care Provider] -
[2023-04-26 08:15] VITALS: BP 142/70; PULSE 77; RESP 15; TEMP 36.9; O2SAT 97
== END 2023-04-26 09:02 | disposition home or self-care (01) ==
PROVIDERS: Emergency Provider Emergency Medicine Emergency Medical Services; PCP Internal Medicine
DX: N39.0 Urinary tract infection, site not specified (principal); R30.0 Dysuria; R35.0 Frequency of micturition
CPT/HCPCS: 36415; 80053; 81001; 85025; 87086; 87088; 87186; 96365; 99284; J0696

== ENCOUNTER 2023-05-04 09:05 | Outpatient (REF) | payer BC, SELFPAY ==
[2023-05-04 09:33] LABS: MANUAL DIFF FLAG NO
[2023-05-04 10:43] LABS: Basophils Percent Auto 0.6 % (0-2); Eosinophils Absolute Auto 0.2 X10*3/uL (0.0-0.4); Eosinophils Percent Auto 2.4 % (0-4); Hematocrit 41.7 % (37.0-47.0); Hemoglobin 13.2 g/dl (12.0-16.0); Imm Gran Abs Auto 0.03 X10*3/uL (0.00-0.03); Imm Gran Pct Auto 0.4 % (0.0-0.4); Lymphocytes Absolute Auto 2.3 X10*3/uL (1.2-4.9); Lymphocytes Percent Auto 32.8 % (20-40); Mean Corpuscular HGB Conc 31.7 g/dl (31.0-35.0); Mean Corpuscular Hemoglobin 27.3 pg (27.0-33.0); Mean Corpuscular Volume 86.3 fL (80.0-98.0); Mean Platelet Volume 10.2 fL (9.4-12.3); Monocytes Absolute Auto 0.4 X10*3/uL (0.1-1.2); Neutrophils Absolute Auto 4.1 x10*3/uL (2.0-8.3); Neutrophils Percent Auto 57.8 % (45-73); Platelet Count 257 X10*3/uL (160-400); Red Blood Count 4.83 X10*6/uL (4.20-5.50); Red Cell Distribution Width 12.6 % (11.0-16.0); White Blood Count 7.1 X10*3/uL (4.8-10.8)
[2023-05-04 10:50] LABS: Estimated Average Glucose 108 mg/dL; Hemoglobin A1c % 5.4 %
[2023-05-04 11:31] LABS: Alanine Aminotransferase 23 U/L (0-31); Albumin Level 4.1 g/dL (3.5-5.0); Alkaline Phosphatase 71 U/L (39-117); Anion Gap 16 (12-20); Aspartate Amino Transferase 20 U/L (5-31); Bilirubin Total 0.7 mg/dL (0.0-1.0); Blood Urea Nitrogen 12 mg/dL (9-16); Calcium 10.1 mg/dL (8.4-10.2); Carbon Dioxide 28 mmol/L (22-29); Chloride 101 mmol/L (96-108); Cholesterol 200 mg/dL; Estimated Glomerular Filt Rate > 60; Glucose Fasting 103 mg/dL (60-99); HDL Cholesterol 54 mg/dL; LDL Cholesterol Calculated 123 mg/dl; Potassium 3.9 mmol/L (3.3-5.1); Sodium 141 mmol/L (135-145); Total Protein 7.5 g/dL (6.5-8.0); Triglycerides 116 mg/dL
[2023-05-04 11:50] LABS: Vitamin D 25-OH Total 51.7 ng/mL (>30)
[2023-05-04 12:27] LABS: Appearance Urine Clear; Color Urine Yellow; Glucose Urine UA Negative (Negative); Leukocyte Esterase Urine Negative (Negative); Nitrite Urine Negative (Negative); PH 6.5 (5.0-9.0); Specific Gravity - Urine 1.015 (1.005-1.025); Urine Blood Negative (Negative); Urine Ketones Negative (Negative); Urine Protein Negative (Neg-Trace)
== END 2023-05-04 09:06 | disposition home or self-care (01) ==
LOC: HO.LAB 09:05
PROVIDERS: PCP Internal Medicine; Visit Provider Internal Medicine
DX: R73.01 Impaired fasting glucose (principal); E55.9 Vitamin D deficiency, unspecified; I10 Essential (primary) hypertension; E78.00 Pure hypercholesterolemia, unspecified; R30.0 Dysuria; R05.9 Cough, unspecified
CPT/HCPCS: 36415; 80053; 80061; 81003; 82306; 83036; 84443; 85025

== ENCOUNTER 2023-05-06 15:20 | Outpatient (AMB) | payer BC, SELFPAY ==
--- NOTE | 2023-05-06 16:01 | MHC.OFFWIV ---
Intake Vital Signs 05/06/23 16:03 Height 5 ft 6 in BP 140/80 H Blood Pressure Location Lt brachial Position Sitting Pulse 75 Pulse Source Pulse Oximeter Temp 97.9 F Temp Source Temporal Artery Scan Pulse Oximetry (%) 98 Intake Visit Reasons: EST/cough for over a week Intake Note: pt is here for c/o cough for over a week, feeling fatigue Patient Tobacco Use Status: Never used Tobacco Allergies Peanut Butter Allergy (Severe, Verified 05/06/23 16:02) Anaphylaxis latex [Latex] Allergy (Intermediate, Verified 05/06/23 16:02) RASH shellfish derived Allergy (Unknown, Verified 05/06/23 16:02) Anaphylaxis Do you need a note to return to daycare/school/sports/work: Yes HPI HPI Comments History of Present Illness Details This is a 63-year-old female presenting to the office today for a sick visit. Patient reports a productive cough with yellow sputum x2 weeks. She denies any fevers or chills. She denies any chest pain or shortness of breath other than some mild difficulty breathing when she feels there is phlegm in her throat. She denies any abdominal pain or nausea/vomiting/diarrhea. She denies any other viral URI symptoms including sinus congestion, nasal congestion, rhinorrhea, sore throat, myalgias. She denies any known sick contacts. She denies a history of pneumonia in the past. 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 Varicose veins of both lower extremities with pain Surgical History History of biopsy History of bladder surgery History of colectomy History of colonoscopy History of esophagogastroduodenoscopy (EGD) History of foot surgery History of hemorrhoidectomy History of partial hysterectomy History of removal of cyst S/P bilateral salpingo-oophorectomy Family History Father Colon cancer Diabetes Mother Diabetes GERD (gastroesophageal reflux disease) Daughter Eating disorder Bipolar 1 disorder Social History Housing: House Alcohol intake: never Patient Tobacco Use Status: Never used Tobacco Second Hand Smoke Exposure: Yes service: No Current occupational status: employed 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 Cognitive needs: No Hearing needs: No Vision needs: Yes (reading glasses) Female Reproductive History Menstrual Age of Menarche: 11 Review of Systems Const All systems reviewed & are unremarkable except as noted in HPI and below Reports as per HPI, Reports no additional complaints, Denies chills and Denies fever(s) Eyes Reports as per HPI and Reports no additional complaints Physical Exam Vital Signs: Last Vital Signs Temp 97.9 F 05/06/23 16:03 Pulse 75 05/06/23 16:03 BP 140/80 H 05/06/23 16:03 Pulse Ox 98 05/06/23 16:03 Const General: cooperative, healthy appearing and no acute distress Orientation/consciousness: patient oriented x3 HEENT Head: Yes normal to inspection Ears: hearing grossly normal bilaterally General nose exam: Normal external nose present Face and sinus: Yes normal facial exam Mouth: Normal oral and palatal mucosa present Throat: Yes posterior oropharynx normal Resp Effort & Inspection: normal respiratory effort and able to speak in complete sentences Auscultation: clear to auscultation bilaterally, no crackles, no rales, no rhonchi and no wheezes Cardio Rate: regular rate Rhythm: regular rhythm Heart sounds: no gallops, no murmurs and no rubs Peripheral pulses: Peripheral pulses 2+ throughout Skin General skin exam: no rashes or lesions noted Neuro General: patient oriented x3 Cranial nerves: Yes CN's II-XII intact bilaterally Cognition (Neuro): normal cognition Gait exam (Neuro): Normal gait present Motor exam (neuro): 5/5 motor strength present throughout Results Reviewed Results Reviewed: CXR : Nonspecific diffuse interstitial thickening for which differential considerations include small airways disease, reactive airways disease and atypical/viral infections. Assessment & Plan Assessment & Plan (1) Cough: Code(s): R05.9 - Cough, unspecified Plan This is a 63-year-old female presenting to the office today complaining of a productive cough with yellow sputum. Chest x-ray was obtained, which showed nonspecific diffuse interstitial thickening which could represent reactive airway disease versus viral/atypical infections. Patient denies any fevers or chills, recent WBC count was well within normal limits at 7.1, and she has no tachycardia. Patient is maintaining oxygen saturations on room air. Her lungs are clear to auscultation bilaterally without expiratory wheezing or crackles. Patient was sent home on p.o. azithromycin 500 mg x 1 followed by 250 mg daily x4 days to cover for atypical infection. Patient was advised to follow-up here or the emergency room for worsening or persistent symptoms, fever/chills, or shortness of breath. Patient verbalizes her understanding and she is agreeable with the plan. Medications: New azithromycin For 250 mg dose pack: take 500 mg today (day 1), then 250 mg for 4 days (days 2-5) PO 6 tabs 0RF Coding Level of Care Code Est Pt Level 3 (72297) Diagnoses Cough R05.9
[2023-05-06 16:03] VITALS: BP 140/80; PULSE 75; TEMP 36.6; O2SAT 98
== END 2023-05-06 17:19 | disposition home or self-care (01) ==
PROVIDERS: PCP Internal Medicine; Visit Provider Physician Assistant Medical
DX: R05.9 Cough, unspecified (principal)
CPT/HCPCS: 99213

== ENCOUNTER 2023-05-06 16:21 | Outpatient (REF) | payer BC, SELFPAY ==
--- NOTE | ~2023-05-06 | XR_ITS ---
EXAMINATION: XR CHEST CLINICAL INFORMATION: Cough, unspecified. COMPARISON: Chest radiograph 11/17/2022. TECHNIQUE: 2 views of the chest were obtained. FINDINGS: Stable appearance of the cardiomediastinal silhouette. Mildly increased interstitial thickening compared to 11/17/2022. Streaky opacities in the lower lungs, favored to represent subsegmental atelectasis. No pleural effusion or pneumothorax. Unchanged mild subpleural apical thickening. Thoracic spondylosis. No acute osseous findings. XR/XR chest 2V IMPRESSION: Nonspecific diffuse interstitial thickening for which differential considerations include small airways disease, reactive airways disease and atypical/viral infections.
== END 2023-05-06 16:22 | disposition home or self-care (01) ==
LOC: HO.HMGCX 16:21
PROVIDERS: PCP Internal Medicine; Visit Provider Physician Assistant Medical
DX: R05.9 Cough, unspecified (principal)
CPT/HCPCS: 71046

== ENCOUNTER 2023-05-18 07:57 | Outpatient (AMB) | payer BC, SELFPAY ==
[2023-05-18 08:02] VITALS: BP 142/82; PULSE 75; O2SAT 98; BMI 29.9
--- NOTE | 2023-05-18 08:02 | A.OFFPC_ITS ---
Vital Signs 05/18/23 08:02 Height 5 ft 6 in Weight 83.915 kg BMI 29.9 BP 142/82 H Blood Pressure Location Lt brachial Position Sitting Pulse 75 Pulse Source Pulse Oximeter Pulse Oximetry (%) 98 Oxygen Delivery Method Room Air Intake Visit Reasons: 04/27/23 for UTI Allergies Peanut Butter Allergy (Severe, Verified 05/18/23 08:03) Anaphylaxis latex [Latex] Allergy (Intermediate, Verified 05/18/23 08:03) RASH shellfish derived Allergy (Unknown, Verified 05/18/23 08:03) Anaphylaxis Medication List - Last Reconciled 05/18/23 by JEEVAN Barragan aspirin 81 mg PO DAILY bupropion HCl 150 mg PO QAM 90 days Ca carb-D3-mag yb-txf-pjac-Zn 300 mg-800 unit -25 mg-0.5 mg (Caltrate + D3 Plus Minerals) 1 tab PO DAILY cholecalciferol (vitamin D3) 25 mcg PO DAILY fluconazole 150 mg PO DAILY 1 day hydrochlorothiazide 25 mg PO DAILY 90 days lorazepam 0.5 mg PO TID PRN 90 days losartan 50 mg PO DAILY 90 days mecobalamin (vitamin B12) mcg PO xhtdltdv-prx-xuxi-FA-lutein 8 mg iron-400 mcg-300 mcg (Multivitamin Women 50 Plus) 1 tab PO DAILY omeprazole 20 mg PO BID 90 days simethicone (Gas Relief (simethicone)) 125 mg PO TID PRN sucralfate (Carafate) 10 mL PO TID Ventolin HFA 90 mcg/actuation (albuterol sulfate) 2 puffs inhalation Q6H PRN 30 days NS Tobacco use date assessed: 01/26/23 Fall risk assessment: No Falls in past year Last assessed Fall Risk: 05/18/23 Dental Screening Dental Screen Date: 05/18/23 Did you have a dental visit in the last 12 months?: Yes Did you have a dental problem in the last 6 months where you did not have access to dental care?: No Was dental information given to patient?: Patient has dentist HPI HPI Comments History of Present Illness Details 63-year-old female with history of urinary incontinence S/P bladder sling x2 with recurrent prolapse with plans for repair in [address] Gonzalez at [facility], presents to the office for post ER evaluation. She presented to [facility] ED on 04/26 for evaluation of suprapubic pain, dysuria, and urinary frequency and urgency that had been ongoing for 1 month worsening over the last few days prior to arrival. She had had minimal symptomatic relief from azo. In the ED, there was a leukocytosis of 13.1, vital stable. Urinalysis significant for 3+ leukocytes, positive nitrites, 3+ blood, 3+ protein, positive urinary sediment and 4+ bacteria. She was treated empirically with cefuroxime 250 mg b.i.d. x7 days. Urine culture grew Proteus susceptible to cephalosporins. She reports symptoms have resolved fully. No fevers, chills, dysuria, increased frequency, or urgency. No abd pain or flank pain. Not performing any pelvic floor exercises. She is also reporting ongoing productive cough. Has been chronic for weeks. Reports post nasal drip. Occassional SOB. NO known history of asthma or COPD. NOt a smoker, but exposed to 2nd hand smoke through . [facility] with CXR negative for any bacterial pneumonia but does show evidence of small airways disease or reactive airway disease versus atypical/viral infection. Given duration of symptoms, viral infection seems less likely. She was prescribed azithromycin which did not fully resolve symptoms. Continues with occasionally productive cough worse at night. No fe vers or chills. 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 Varicose veins of both lower extremities with pain Surgical History History of biopsy History of bladder surgery History of colectomy History of colonoscopy History of esophagogastroduodenoscopy (EGD) History of foot surgery History of hemorrhoidectomy History of partial hysterectomy History of removal of cyst S/P bilateral salpingo-oophorectomy Family History Father Colon cancer Diabetes Mother Diabetes GERD (gastroesophageal reflux disease) Daughter Eating disorder Bipolar 1 disorder Social History Housing: House Alcohol intake: never Patient Tobacco Use Status: Never used Tobacco e-Cigarette/Vaping Use: Never Used Second Hand Smoke Exposure: Yes service: No Current occupational status: employed 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 1. Little interest or pleasure in doing things: not at all 2. Feeling down, depressed, or hopeless: not at all 3. Trouble falling or staying asleep, or sleeping too much: not at all 4. Feeling tired or having little energy: not at all 5. Poor appetite or overeating: not at all 6. Feeling bad about yourself - or that you are a failure or have let yourself or your family down: not at all 7. Trouble concentrating on things, such as reading the newspaper or watching television: not at all 8. Moving or speaking so slowly that other people could have noticed. Or the opposite - being so fidgety or restless that you have been moving around a lot more than usual: not at all 9. Thoughts that you would be better off or of hurting yourself in some way: not at all Total score: 0 Depression Screening Interpretation: Negative 80354 - PHQ-9 Billing: Yes Source: Developed by Drs. Willie Burns, Phu Robbins and colleagues, with an educational charlette from [employer]. Thrive Questionnaire Date Thrive assessed: 01/26/23 AUDIT C Alcohol Use Questionnaire (AUDIT-C) 1. How often do you have a drink containing alcohol?: Never 2. How many drinks containing alcohol do you have on a typical day when you are drinking?: 1 or 2 (0) 3. How often do you have six or more drinks on one occasion?: Never Total Score: 0 Score Reviewed/Action Taken: Yes CANDE-7 AMB Questionnaire CANDE-7 Date CANDE - 7 assessed: 01/26/23 Source: Developed by Drs. Willie Burns, Phu Robbins and colleagues, with an educational charlette from [employer]. Review of Systems Const All systems reviewed & are unremarkable except as noted in HPI and below Physical exam (Primary Care) Vital Signs: Last Vital Signs Pulse 75 05/18/23 08:02 BP 142/82 H 05/18/23 08:02 Pulse Ox 98 05/18/23 08:02 Oxygen Delivery Method Room Air 05/18/23 08:02 BMI result Body Mass Index 29.9 Tobacco/Smoking Status: Tobacco use Status Tobacco use date assessed 01/26/23 05/18/23 08:07 Patient Tobacco Use Status Never used Tobacco 05/18/23 08:07 e-Cigarette/Vaping Use Never Used 05/18/23 08:07 PHQ-9: PHQ-9 Score PHQ-9: Total score 0 05/18/23 08:09 Depression Screening Interpretation: Negative Thrive Assessment: Date of Thrive Assessment Date Thrive assessed 01/26/23 05/18/23 08:07 Const Other: Constitutional - Awake and Alert, No apparent distress Eyes - PERRLA, EOMI Cardiovascular - S1S2, RRR, No edema Respiratory - Normal lung expansion, Normal respiratory effort, No respiratory distress, expiratory wheezing RLL Gastrointestinal - NT / ND; +BS; No rebound or guarding Extremities - no calf tenderness bilaterally, no swelling Skin - Warm/Dry Neurological - Alert & oriented x3 Results Reviewed Results Reviewed: CBC, UA/UC, CXR Assessment and Plan Assessment & Plan (1) UTI (urinary tract infection): Code(s): N39.0 - Urinary tract infection, site not specified Plan: Urine culture grew Proteus susceptible to cephalosporins. Repeat urinalysis negative, leukocytosis resolved. Symptoms have also resolved. Follow-up with Urogynecology as scheduled. (2) Female bladder prolapse: Code(s): N81.10 - Cystocele, unspecified Plan: Follow-up with Urogynecology has scheduled in June. Recommend pelvic floor exercises including Kegel exercises. (3) Chronic cough: Code(s): R05.3 - Chronic cough Plan: Patient is reassured that she does not require another round of antibiotic therapy. Chest x-ray reviewed and was negative for any acute bacterial p neumonia but did show evidence of possible small airways disease. Will refer for pulmonary function testing. She is given a course of Tessalon Perles and albuterol inhaler as well as spacer. Consult on use of albuterol inhaler. Recommend Flonase nasal spray to help with postnasal drip. Orders: Orders 2 PFT pulmonary function test Today R05.3 - Chronic cough Medications: New benzonatate 100 mg PO TID PRN 30 caps 0RF cough albuterol sulfate 90 mcg/actuation 2 puffs inhalation Q6H PRN 8.5 grams 0RF shortness of breath or wheezing inhalational spacing device (InspiraChamber spacer) As directed 1 ea 0RF Coding Level of Care Code Est Pt Level 5 (38428) Diagnoses UTI (urinary tract infection) N39.0 Female bladder prolapse N81.10 Chronic cough R05.3 Time Spent (min) 42 Comment time spent reviewing, discussion w/ pt, and documentation
== END 2023-05-18 08:31 | disposition home or self-care (01) ==
PROVIDERS: PCP Internal Medicine; Visit Provider Physician Assistant
DX: N39.0 Urinary tract infection, site not specified (principal); N81.10 Cystocele, unspecified; R05.3 Chronic cough
CPT/HCPCS: 99215

== ENCOUNTER 2023-05-25 10:29 | Outpatient (AMB) | payer BC, SELFPAY ==
--- NOTE | 2023-05-25 10:39 | MHC.PC.OV ---
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: No Accompanied by: Self / Same As Patient Allergies Peanut Butter Allergy (Severe, Verified 05/25/23 11:21) Anaphylaxis latex [Latex] Allergy (Intermediate, Verified 05/25/23 11:21) RASH shellfish derived Allergy (Unknown, Verified 05/25/23 11:21) Anaphylaxis Medication List - Last Reconciled 05/25/23 by Sandip Ricardo MD albuterol sulfate 90 mcg/actuation 2 puffs inhalation Q6H PRN aspirin 81 mg PO DAILY benzonatate 100 mg PO TID PRN bupropion HCl 150 mg PO QAM 90 days Ca carb-D3-mag mb-svn-xpbe-Zn 300 mg-800 unit -25 mg-0.5 mg (Caltrate + D3 Plus Minerals) 1 tab PO DAILY cholecalciferol (vitamin D3) 25 mcg PO DAILY fluconazole 150 mg PO DAILY 1 day hydrochlorothiazide 25 mg PO DAILY 90 days inhalational spacing device (InspiraChamber spacer) As directed lorazepam 0.5 mg PO TID PRN 90 days losartan 50 mg PO DAILY 90 days mecobalamin (vitamin B12) mcg PO htiicckz-ipw-gmso-FA-vit K-lut 8 mg iron-400 mcg-50 mcg (Multivitamin Women 50 Plus) 1 tab PO DAILY omeprazole 20 mg PO BID 90 days simethicone (Gas Relief (simethicone)) 125 mg PO TID PRN sucralfate (Carafate) 10 mL PO TID Ventolin HFA 90 mcg/actuation (albuterol sulfate) 2 puffs inhalation Q6H PRN 30 days NS Tobacco use date assessed: 01/26/23 Fall risk assessment: No Falls in past year Last assessed Fall Risk: 05/25/23 Dental Screening Dental Screen Date: 05/25/23 Did you have a dental visit in the last 12 months?: No Did you have a dental problem in the last 6 months where you did not have access to dental care?: No Was dental information given to patient?: Patient has dentist HPI Annual Exam HPI Details Patient comes in today for her annual physical examination States that she feels okay Continues to experience symptoms of persistent/recurrent urinary frequency, urgency and dysuria and is now scheduled for gynecologic urologic surgery with Dr. Tita Gonzalez next month on 07/04/23 She denies any headaches or dizziness Denies any chest pains but states that she is still experiencing recurrent chest congestion and on and off coughing lately Coughs up minimal clear to whitish phlegm at times and states that her chest feels tight occasionally Went to the walk-in clinic about 2 to 3 weeks ago for increasing respiratory symptoms (cough and congestion) and was started empirically on Azithromycin x 5 days, as well as on Benzanatate and Albuterol inhaler to use PRN for symptomatic relief, which she states she is still using She denies any fever or sore throat No nausea/vomiting, no abdominal pain No change in bowel habits noted Had her follow up labs done a few weeks ago - to discuss her results She had her last colonoscopy done by Dr. 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 Varicose veins of both lower extremities with pain Surgical History History of biopsy History of bladder surgery History of colectomy History of colonoscopy History of esophagogastroduodenoscopy (EGD) History of foot surgery History of hemorrhoidectomy History of partial hysterectomy History of removal of cyst S/P bilateral salpingo-oophorectomy Family History Father Colon cancer Diabetes Mother Diabetes GERD (gastroesophageal reflux disease) Daughter Eating disorder Bipolar 1 disorder Social History Housing: House Alcohol intake: never Patient Tobacco Use Status: Never used Tobacco e-Cigarette/Vaping Use: Never Used Second Hand Smoke Exposure: Yes service: No Current occupational status: employed 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 How often do you have a drink containing alcohol?: Never Total Score: 0 CANDE-7 AMB Questionnaire CANDE-7 Date CANDE - 7 assessed: 05/25/23 Feeling nervous, anxious, or on edge: 1 = Several days Not being able to stop or control worryin = Several days Worrying too much about different things: 0 = Not at all Trouble relaxin = Not at all Being so restless that it is hard to sit still: 0 = Not at all Becoming easily annoyed or irritable: 0 = Not at all Feeling afraid as if something awful might happen: 0 = Not at all Total CANDE-7 score (0-4 normal; 5-9 mild; 10-14 moderate; 15-21 severe): 2 Source: Developed by Drs. Willie Burns, Cora Guzmán, Phu Reynoso and colleagues, with an educational charlette from [employer]. Review of Systems Const Denies chills, Denies fatigue, Denies fever(s) and Denies headache(s) Eyes Denies blurry vision, Denies change in vision, Denies irritation and Denies itchy eyes ENT Denies dysphagia, Denies dizziness, Denies otalgia, Denies headache(s), Denies nasal congestion, Denies neck pain, Denies odynophagia, Denies sinus pain and Denies sore throat Card Denies chest pain, Denies rapid heart rate, Denies irregular heart rhythm, Denies palpitations and Reports dyspnea on exertion (at times, mild) Resp Reports chest congestion (mild; chest also feels tight at times), Reports cough (on and off, coughs up minimal phlegm at times), Denies pain on inspiration, Reports dyspnea on exertion (at times, mild) and Denies wheezing GI Denies abdominal pain, Denies bloating, Denies constipation, Denies dysphagia, Denies heartburn, Denies diarrhea, Denies nausea, Denies odynophagia and Denies vomiting Denies hematuria, Denies urinary frequency, Reports dysuria (occasional, mild), Reports urinary incontinence (at times) and Reports urinary urgency Musc Denies back pain, Denies arthralgias, Denies joint swelling, Denies muscle weakness and Denies neck pain Skin/Breast Denies breast pain, Denies breast mass, Denies change in pigmentation, Denies lesions, Denies rash and Denies unusual bruising Neuro Denies dizziness, Denies headache(s) and Denies paresthesias Psych Denies anxiety and Denies depression Endo Denies fatigue and Denies palpitations Jourdan/Lymph Denies easy bruising Aller/Immun Denies itchy eyes and Denies wheezing Physical exam (Primary Care) Vital Signs: Last Vital Signs BP 140/90 H 05/25/23 10:42 BMI result Body Mass Index 29.9 Tobacco/Smoking Status: Tobacco use Status Tobacco use date assessed 01/26/23 05/25/23 10:39 Patient Tobacco Use Status Never used Tobacco 05/25/23 10:39 e-Cigarette/Vaping Use Never Used 05/25/23 10:39 Thrive Assessment: Date of Thrive Assessment Date Thrive assessed 01/26/23 05/25/23 10:39 Const General: no acute distress, alert and awake Orientation/consciousness: patient oriented x3 HENMT Head: Yes normocephalic and Yes atraumatic Ears: external ears normal, TM's normal bilaterally and EAC's normal General nose exam: No nasal discharge present Face and sinus: Yes normal facial exam and Yes sinuses nontender Teeth and gingiva: dentition normal Throat: Yes posterior oropharynx normal and Yes tonsils normal (no TP congestion) Eyes Eyelids: Yes eyelids normal Conjunctivae: conjunctivae normal Pupils: Equal, round and reactive pupils present EOM: EOMs intact bilaterally Neck Neck: Yes no lymphadenopathy and Yes supple Thyroid: Thyroid normal Resp Auscultation: no crackles, no rales, rhonchi (occasional), wheezes (occasional) expiratory wheezes and upper bilaterally and diminished lung sounds (slightly) bilateral Cardio Rate: regular rate Rhythm: regular rhythm Heart sounds: no murmurs GI Palpation (GI): Soft to palpation and nontender Auscultation: normal bowel sounds General: Yes no CVA tenderness Back/Spine/Pelvis Back: no CVA tenderness Thoracic/Lumbar Spine: thoracic and lumbar spine normal to inspection Skin Lesions: no lesions Rashes: no rashes Neuro General: patient oriented x3, moves all extremities, no focal motor deficits and CN's II-XI intact bilaterally Cranial nerves: Yes Equal, round and reactive pupils present Cognition (Neuro): normal cognition Gait exam (Neuro): Normal gait present Extrem General: Yes no clubbing, cyanosis or edema Results Reviewed Results Reviewed: Laboratory Tests 05/04/23 05/04/23 05/04/23 09:30 09:32 09:32 WBC 7.1 Hgb 13.2 Hct 41.7 Plt Count 257 Sodium 141 Potassium 3.9 Creatinine 0.77 Estimated GFR > 60 Fasting Glucose 103 H Hemoglobin A1c % Calcium 10.1 AST 20 ALT 23 Triglycerides 116 Cholesterol 200 LDL Cholesterol, Calc 123 HDL Cholesterol 54 25-OH Vitamin D Total 51.7 TSH 1.60 Ur Specific [place] 1.015 Urine Protein Negative Urine Glucose (UA) Negative Urine Blood Negative 05/04/23 09:32 WBC Hgb Hct Plt Count Sodium Potassium Creatinine Estimated GFR Fasting Glucose Hemoglobin A1c % 5.4 Calcium AST ALT Triglycerides Cholesterol LDL Cholesterol, Calc HDL Cholesterol 25-OH Vitamin D Total TSH Ur Specific [place] Urine Protein Urine Glucose (UA) Urine Blood Assessment and Plan Assessment & Plan (1) Annual physical exam: Code(s): Z00.00 - Encounter for general adult medical examination without abnormal findings Plan: Results of her labs done a few weeks ago reviewed and discussed with patient Had her screening colonoscopy last done (Dr. 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 (2) Respiratory tract infection: Code(s): J98.8 - Other specified respiratory disorders Plan: Was treated with Azithromycin x 5 days at the walk-in clinic when she presented there a few weeks ago for respiratory symptoms Patient currently still appears to have some lingering symptoms - chest sound tight and she has occasional expiratory wheezing noted Will start her on Augmentin 875 mg BID x 10 days May continue using her Albuterol HFA 1 to 2 inhalations Q 6 hours PRN and Benzonatate 100 mg TID PRN (3) Benign essential hypertension: Code(s): I10 - Essential (primary) hypertension Plan: Reinforced low sodium diet - goal is systolic BP of at least 130 mm or less Continue HCTZ 25 mg QD and Losartan 50 mg QD (4) Pure hypercholesterolemia: Code(s): E78.00 - Pure hypercholesterolemia, unspecified Plan: Reinforced low cholesterol diet Will recheck labs in 4 months for follow up (5) Impaired fasting glucose: Code(s): R73.01 - Impaired fasting glucose Plan: HgbA1c remains normal at 5.4% on her labs done a few weeks ago Reinforced low calorie diet/exercise as tolerated (6) Elevated LFTs: Code(s): R79.89 - Other specified abnormal findings of blood chemistry Plan: Improved - LFTs have remained normal on her recent labs Will continue to monitor her LFTs regularly (7) GERD without esophagitis: Code(s): K21.9 - Gastro-esophageal reflux disease without esophagitis Plan: Dietary restrictions reinforced Continue Omeprazole to 20 mg BID Follow up with GI as scheduled - had repeat EGD done last year (2021) (8) Female bladder prolapse: Code(s): N81.10 - Cystocele, unspecified Plan: Was referred to Dr. Tita Gonzalez for further evaluation and management States that she is now scheduled for surgical repair with Dr. 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: Code(s): D04.61 - Carcinoma in situ of skin of right upper limb, including shoulder Plan: S/P surgical excision Follow up with oncology and dermatology as scheduled for continuing surveilance (10) Osteoporosis: Code(s): M81.0 - Age-related osteoporosis without current pathological fracture Qualifiers: Osteoporosis type: age-related Presence of current pathological fracture: without current pathological fracture Qualified Code(s): M81.0 - Age-related osteoporosis without current pathological fracture Plan: BMD done in April 2022 revealed findings of osteoporosis - (+) osteoporosis based on the lowest T-score value of -3.2 in the lumbar spine Reinforced fall precautions and patient is instructed to continue taking her Vitamin D and oral Calcium supplements daily Have offered to start her on treatment or refer her to Endocrinology for further management but patient declined and states that she would like to hold off on this for now and will call for orders/referral if she feels ready to do so (11) Varicose veins of both lower extremities with pain: Code(s): I83.813 - Varicose veins of bilateral lower extremities with pain Plan: Follow up with vascular surgery as scheduled (12) Anxiety: Code(s): F41.9 - Anxiety disorder, unspecified Plan: Continue Lorazepam 0.5 mg TID PRN Continue Bupropion XL 150 mg Q AM Was started on Citalopram [address] Levi last year but she could not tolerate the Rx Was started on Sertraline 25 mg QD by neurology a couple of months ago but she has not started on the Rx yet - is not sure if she wants to take it or not (13) Obesity (BMI 30-39.9): Code(s): E66.9 - Obesity, unspecified Plan: Reinforced diet/exercise as tolerated/lose weight Plan Follow up in 4 months Orders: Orders Complete Blood Count Auto Diff 4 Months I10 - Essential (primary) hypertension Comprehensive [place]. Panel Fast 4 Months E78.00 - Pure hypercholesterolemia, unspecified Lipid Panel 4 Months E78.00 - Pure hypercholesterolemia, unspecified TSH reflex Free T4 4 Months E78.00 - Pure hypercholesterolemia, unspecified UA CC w/rflx Micro + Cult 4 Months R30.0 - Dysuria Vitamin D 25-OH Total 4 Months E55.9 - Vitamin D deficiency, unspecified Medications: New amoxicillin-pot clavulanate 875-125 mg 1 tab PO BID 10 days 20 tabs 0RF Coding Level of Care Code Est Pt Prev Care >65y(52588) Diagnoses Annual physical exam Z00.00 Respiratory tract infection J98.8 Benign essential hypertension I10 Pure hypercholesterolemia E78.00 Impaired fasting glucose R73.01 Elevated LFTs R79.89 GERD without esophagitis K21.9 Female bladder prolapse N81.10 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
[2023-05-25 10:42] VITALS: BP 140/90; BMI 29.9
== END 2023-05-25 11:47 | disposition home or self-care (01) ==
PROVIDERS: Visit Provider Internal Medicine
DX: Z00.00 Encounter for general adult medical examination without abnormal findings (principal); I10 Essential (primary) hypertension; F41.9 Anxiety disorder, unspecified; K21.9 Gastro-esophageal reflux disease without esophagitis; E78.00 Pure hypercholesterolemia, unspecified; J98.8 Other specified respiratory disorders; R73.01 Impaired fasting glucose; R79.89 Other specified abnormal findings of blood chemistry; N81.10 Cystocele, unspecified; D04.61 Carcinoma in situ of skin of right upper limb, including shoulder; M81.0 Age-related osteoporosis without current pathological fracture; I83.813 Varicose veins of bilateral lower extremities with pain
CPT/HCPCS: 99397

== ENCOUNTER → 2023-06-15 10:30 | Outpatient (BNV) | payer BC, SELFPAY | PROVIDERS: PCP Internal Medicine; Visit Provider Hospitalist | DX: R05.3 Chronic cough (principal) | CPT/HCPCS: 94060; 94727; 94729 ==

== ENCOUNTER 2023-06-15 10:31 | Outpatient (REF) | payer BC, SELFPAY ==
--- NOTE | 2023-06-15 10:30 | PFT_ITS ---
INDICATION: Chronic cough. SPIROMETRY: FEV1 to FVC 79% with an FEV1 of 2.24 L, which is 86% predicted and FVC of 2.85 L, which is 83% predicted. No significant response to bronchodilators noted. Maximum voluntary ventilation 104% predicted. LUNG VOLUMES: Total lung capacity 87% predicted. DIFFUSION CAPACITY: DLCO 84% predicted. COMPARISONS: None. INTERPRETATION: No obstructive nor restrictive ventilatory defects identified. No significant response to bronchodilator noted. Normal maximum voluntary ventilation. Lung volumes are within normal limits, and diffusion capacity also within normal limits. If asthma is in the differential methacholine challenge may be helpful in assessing for hyperreactive airways. Otherwise, clinical correlation warranted. Remington Gandhi MD MR/MODL / [id number]
== END 2023-06-15 10:32 | disposition home or self-care (01) ==
LOC: HO.RESP 10:31
PROVIDERS: PCP Internal Medicine; Visit Provider Physician Assistant
DX: R05.3 Chronic cough (principal)
CPT/HCPCS: 94060; 94727; 94729

== ENCOUNTER 2023-09-28 08:29 | Outpatient (REF) | payer BC, SELFPAY ==
[2023-09-28 08:51] LABS: MANUAL DIFF FLAG NO
[2023-09-28 09:52] LABS: Basophils Percent Auto 0.4 % (0-2); Eosinophils Absolute Auto 0.2 X10*3/uL (0.0-0.4); Eosinophils Percent Auto 2.2 % (0-4); Hematocrit 40.5 % (37.0-47.0); Hemoglobin 12.6 g/dl (12.0-16.0); Imm Gran Abs Auto 0.01 X10*3/uL (0.00-0.03); Imm Gran Pct Auto 0.1 % (0.0-0.4); Lymphocytes Absolute Auto 2.6 X10*3/uL (1.2-4.9); Lymphocytes Percent Auto 37.4 % (20-40); Mean Corpuscular HGB Conc 31.1 g/dl (31.0-35.0); Mean Corpuscular Hemoglobin 26.7 pg (27.0-33.0); Mean Corpuscular Volume 85.8 fL (80.0-98.0); Mean Platelet Volume 10.2 fL (9.4-12.3); Monocytes Absolute Auto 0.5 X10*3/uL (0.1-1.2); Monocytes Percent Auto 7.8 % (2-11); Neutrophils Absolute Auto 3.6 x10*3/uL (2.0-8.3); Neutrophils Percent Auto 52.1 % (45-73); Platelet Count 255 X10*3/uL (160-400); Red Blood Count 4.72 X10*6/uL (4.20-5.50); Red Cell Distribution Width 13.2 % (11.0-16.0); White Blood Count 6.8 X10*3/uL (4.8-10.8)
[2023-09-28 09:58] LABS: Appearance Urine Clear; Color Urine Yellow; Glucose Urine UA Negative (Negative); Leukocyte Esterase Urine Small (1+) (Negative); Nitrite Urine Negative (Negative); PH 7.5 (5.0-9.0); UMIC TRIGGER UACC YES; Urine Blood Negative (Negative); Urine Ketones Negative (Negative); Urine Protein Negative (Neg-Trace)
[2023-09-28 10:03] LABS: Bacteria Urine None Seen (None Seen); Hyaline Casts Urine 0-2 /LPF (0-2); RBC Urine 0-2 /HPF (0-2); UACC Culture Trigger YES
[2023-09-28 10:44] LABS: Alanine Aminotransferase 21 U/L (0-31); Albumin Level 4.1 g/dL (3.5-5.0); Alkaline Phosphatase 81 U/L (39-117); Anion Gap 11 (12-20); Aspartate Amino Transferase 19 U/L (5-31); Bilirubin Total 0.4 mg/dL (0.0-1.0); Blood Urea Nitrogen 15 mg/dL (9-16); Calcium 9.5 mg/dL (8.4-10.2); Carbon Dioxide 31 mmol/L (22-29); Chloride 101 mmol/L (96-108); Cholesterol 196 mg/dL (<200); Estimated Glomerular Filt Rate > 60; Glucose Fasting 110 mg/dL (60-99); HDL Cholesterol 56 mg/dL (>40); LDL Cholesterol Calculated 119 mg/dL (<100); Potassium 3.9 mmol/L (3.3-5.1); Sodium 139 mmol/L (135-145); Total Protein 7.7 g/dL (6.5-8.0); Triglycerides 108 mg/dL (<150)
[2023-09-28 10:49] LABS: TSH reflex Free T4 2.01 uIU/mL (0.32-4.0); Vitamin D 25-OH Total 47.9 ng/mL (>30)
== END 2023-09-28 08:30 | disposition home or self-care (01) ==
LOC: HO.LAB 08:29
PROVIDERS: PCP Internal Medicine; Visit Provider Internal Medicine
DX: E55.9 Vitamin D deficiency, unspecified (principal); I10 Essential (primary) hypertension; E78.00 Pure hypercholesterolemia, unspecified; R30.0 Dysuria
CPT/HCPCS: 36415; 80053; 80061; 81001; 82306; 84443; 85025; 87086

== ENCOUNTER 2023-10-05 12:30 | Outpatient (AMB) | payer BC, SELFPAY ==
[2023-10-05 12:33] VITALS: BP 132/80; PULSE 84; O2SAT 98; BMI 31.4
--- NOTE | 2023-10-05 12:33 | A.OFFPC_ITS ---
Vital Signs 10/05/23 12:33 Height 5 ft 6 in Weight 194 lb 6 oz BMI 31.4 BP 132/80 Blood Pressure Location Lt brachial Position Sitting Pulse 84 Pulse Source Pulse Oximeter Pulse Oximetry (%) 98 Oxygen Delivery Method Room Air Intake Visit Reasons: HTN, dyslipidemia, IFG, GERD [employer] Required: No Accompanied by: Self / Same As Patient Allergies Peanut Butter Allergy (Severe, Verified 10/05/23 13:14) Anaphylaxis latex [Latex] Allergy (Intermediate, Verified 10/05/23 13:14) RASH shellfish derived Allergy (Unknown, Verified 10/05/23 13:14) Anaphylaxis Medication List - Last Reconciled 10/05/23 by Sandip Ricardo MD albuterol sulfate 90 mcg/actuation 2 puffs inhalation Q6H PRN aspirin 81 mg PO DAILY benzonatate 100 mg PO TID PRN bupropion HCl 150 mg PO QAM 90 days Ca carb-D3-mag yr-dcs-ybxo-Zn 300 mg-20 mcg- 25 mg-0.5 mg (Caltrate-D3 Plus Minerals) 1 tab PO DAILY cholecalciferol (vitamin D3) 25 mcg PO DAILY ciprofloxacin HCl 500 mg PO BID 7 days fluconazole 150 mg PO DAILY 1 day hydrochlorothiazide 25 mg PO DAILY 90 days inhalational spacing device (InspiraChamber spacer) As directed lorazepam 0.5 mg PO TID PRN 90 days losartan 50 mg PO DAILY 90 days mecobalamin (vitamin B12) mcg PO oxdjvlai-yvk-oolb-FA-vit K-lut 8 mg iron-400 mcg-50 mcg (Multivitamin Women 50 Plus) 1 tab PO DAILY omeprazole 20 mg PO BID 90 days simethicone (Gas Relief (simethicone)) 125 mg PO TID PRN sucralfate (Carafate) 10 mL PO TID Ventolin HFA 90 mcg/actuation (albuterol sulfate) 2 puffs inhalation Q6H PRN 30 days NS Tobacco use date assessed: 10/05/23 Fall risk assessment: No Falls in past year Last assessed Fall Risk: 10/05/23 Dental Screening Dental Screen Date: 10/05/23 Did you have a dental visit in the last 12 months?: No Did you have a dental problem in the last 6 months where you did not have access to dental care?: No Was dental information given to patient?: No HPI HTN, dyslipidemia, IFG, GERD HPI Details Patient comes in today for her follow up visit States that her lower abdomen and bladder area (suprapubic area) still feels sore - had bladder lift surgery done with Dr. 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 Also reports experiencing increased pain over her right shoulder lately States that she has been using some commercial vibrating disc lately since she started experiencing some pain over the top of her left foot - thinks that the pain is localized to some of the veins on top of her foot but feels that the vibrating disc has helped somewhat with her symptoms She denies any headaches or dizziness Denies any chest pains, no increased SOB No nausea/vomiting and no change in bowel habits noted She is presently still finishing up the Cipro Rx that we sent in for her a few days ago for UTI and that her UTI symptoms are gradually improving Had her follow up labs done last week - to discuss her results Would also like to get her flu shot today [facility] Medical History (Updated 10/05/23 @ 14:00 by Sandip Ricardo MD) 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 Dysphagia 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 extremities with pain Aphthous ulcer of mouth Obesity (BMI 30-39.9) Anxiety GERD without esophagitis Impaired fasting glucose Elevated LFTs Pure hypercholesterolemia Benign essential hypertension Surgical History (Updated 10/05/23 @ 14:02 by Sandip Ricardo MD) H/O of anterior colporrhaphy (~07/04/23) History of esophagogastroduodenoscopy (EGD) History of colectomy History of partial hysterectomy History of foot surgery History of bladder surgery History of biopsy S/P bilateral salpingo-oophorectomy History of removal of cyst History of colonoscopy History of hemorrhoidectomy Family History Father Colon cancer Diabetes Mother Diabetes GERD (gastroesophageal reflux disease) Daughter Eating disorder Bipolar 1 disorder Social History Housing: House Alcohol intake: never Patient Tobacco Use Status: Never used Tobacco e-Cigarette/Vaping Use: Never Used Second Hand Smoke Exposure: Yes service: No Current occupational status: employed 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 1. Little interest or pleasure in doing things: not at all 2. Feeling down, depressed, or hopeless: not at all 3. Trouble falling or staying asleep, or sleeping too much: not at all 4. Feeling tired or having little energy: not at all 5. Poor appetite or overeating: not at all 6. Feeling bad about yourself - or that you are a failure or have let yourself or your family down: not at all 7. Trouble concentrating on things, such as reading the newspaper or watching television: not at all 8. Moving or speaking so slowly that other people could have noticed. Or the opposite - being so fidgety or restless that you have been moving around a lot more than usual: not at all 9. Thoughts that you would be better off or of hurting yourself in some way: not at all Total score: 0 Depression Screening Interpretation: Negative Depression Screening Done: Yes [id number] - PHQ-9 Billing: Yes Source: Developed by Drs. Willie Burns, Cora Guzmán, Phu Reynoso and colleagues, with an educational charlette from [employer]. Thrive Questionnaire Date Thrive assessed: 10/05/23 I am a: Patient What is your living situation today?: I have a steady place to live Within the past 12 months, did the food you bought not last and you didn't have the money to get more?: Never true Within the past 12 months, did you worry whether your food would run out before you got money to buy more?: Never true Do you have trouble paying for medicines?: No Do you have trouble getting transportation to medical appointments?: No Do you have trouble paying your heating and electricity bill?: No Do you have trouble taking care of your child, family member or friend?: No Do you have trouble with day-to-day activities such as bathing, preparing meals, shopping, managing finances, etc.?: No Are you currently unemployed and looking for a job?: No Are you interested in more education?: No Please select the resources that you would like help with: None Currently or been in a relationship where the following occur: no concerns reported AUDIT C Alcohol Use Questionnaire (AUDIT-C) 1. How often do you have a drink containing alcohol?: Never Total Score: 0 Score Reviewed/Action Taken: Yes CANDE-7 AMB Questionnaire CANDE-7 Date CANDE - 7 assessed: 10/05/23 Feeling nervous, anxious, or on edge: 1 = Several days Not being able to stop or control worryin = Several days Worrying too much about different things: 0 = Not at all Trouble relaxin = Not at all Being so restless that it is hard to sit still: 0 = Not at all Becoming easily annoyed or irritable: 0 = Not at all Feeling afraid as if something awful might happen: 0 = Not at all Total CANDE-7 score (0-4 normal; 5-9 mild; 10-14 moderate; 15-21 severe): 2 Source: Developed by Drs. Willie Burns, Cora Guzmán, Phu Reynoso and colleagues, with an educational charlette from [employer]. Review of Systems Const Denies chills, Denies fatigue, Denies fever(s) and Denies headache(s) ENT Denies dysphagia, Denies dizziness, Denies otalgia, Denies headache(s), Denies neck pain, Denies odynophagia and Denies sore throat Card Denies chest pain, Denies rapid heart rate, Denies irregular heart rhythm, Denies palpitations and Reports dyspnea on exertion (at times, mild) Resp Reports cough (on and off, coughs up minimal phlegm at times), Denies pain on inspiration, Reports dyspnea on exertion (at times, mild) and Denies wheezing GI Reports abdominal pain (mostly over the lower abdomen / suparpubic area - bladder lift 2 mos ago), Denies bloating, Denies constipation, Denies dysphagia, Denies heartburn, Denies diarrhea, Denies nausea, Denies odynophagia and Denies vomiting Denies hematuria, Denies urinary frequency, Reports dysuria (improving) and Reports urinary incontinence (at times) Musc Reports back pain (increasing, over the lower back), Reports arthralgias (left hip and right shoulder (see HPI); also (+) pain over top of L foot ), Denies joint swelling and Denies neck pain Neuro Denies dizziness, Denies headache(s) and Denies paresthesias Psych Denies anxiety and Denies depression Endo Denies fatigue and Denies palpitations Jourdan/Lymph Denies easy bruising Aller/Immun Denies wheezing Physical exam (Primary Care) Vital Signs: Last Vital Signs Pulse 84 10/05/23 12:33 BP 132/80 10/05/23 12:33 Pulse Ox 98 10/05/23 12:33 Oxygen Delivery Method Room Air 10/05/23 12:33 BMI result Body Mass Index 31.4 Tobacco/Smoking Status: Tobacco use Status Tobacco use date assessed 10/05/23 10/05/23 12:41 Patient Tobacco Use Status Never used Tobacco 10/05/23 12:41 e-Cigarette/Vaping Use Never Used 10/05/23 12:41 PHQ-9: PHQ-9 Score PHQ-9: Total score 0 10/05/23 13:18 Depression Screening Interpretation: Negative Thrive Assessment: Date of Thrive Assessment Date Thrive assessed 10/05/23 10/05/23 12:41 Currently or been in a relationship where the following occur: no concerns reported Const General: no acute distress and alert HENMT Ears: TM's normal bilaterally and EAC's normal Throat: Yes posterior oropharynx normal and Yes tonsils normal (no TP congestion) Neck Neck: Yes no lymphadenopathy and Yes supple Thyroid: Thyroid normal Resp Auscultation: clear to auscultation bilaterally, no rales and no wheezes Cardio Rate: regular rate Rhythm: regular rhythm Heart sounds: no murmurs GI Palpation (GI): Soft to palpation, Tenderness to palpation present (GI) (minimal) suprapubicly, no guarding and No Rebound tenderness present Auscultation: normal bowel sounds General: Yes no CVA tenderness Back/Spine/Pelvis Back: no CVA tenderness Thoracic/Lumbar Spine: lumbar spinal tenderness Skin Rashes: no rashes Extrem General: Yes no clubbing, cyanosis or edema Right upper extremity: shoulder/upper arm Details: tenderness Location: of the A-C joint Left lower extremity: hip/thigh Details: tenderness Location: of the hip and foot Details: tenderness Location: of the dorsal foot and no edema Office Procedures Flu Questionnaire Does the patient have a severe egg allergy?: No Does the patient have severe life threatening allergies?: No Does the patient have a fever or illness today?: No Has the patient ever had Guillain-[place] Syndrome?: No Has the patient ever had any past reaction to a flu shot?: No Immunizations flu vacc [id number] 6mos up(PF) 60 mcg(15 mcgx4)/0.5 mL IM syringe Performing Provider: Sandip Ricardo MD Performing Location: [facility] Administered by: Jerad Licea on 10/05/23 13:33 Dose Route Admin Location Dispensed Lot Number Expiration Date 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 0.5 mL IM Right Deltoid 0.5 mL [id number] 04/22/24 [id number] [employer] VIS Given Date VIS Provided VIS Publication Date 10/05/23 Single Vaccine 21 Eligibility Eligibility Date Funding Source Not [facility] Eligible 10/05/23 Private Results Reviewed Results Reviewed: Laboratory Tests 09/28/23 09/28/23 09/28/23 08:40 08:49 08:49 WBC 6.8 Hgb 12.6 Hct 40.5 Plt Count 255 Sodium 139 Potassium 3.9 Creatinine 0.71 Estimated GFR > 60 Fasting Glucose 110 H Calcium 9.5 AST 19 ALT 21 Triglycerides 108 Cholesterol 196 LDL Cholesterol, Calc 119 H HDL Cholesterol 56 25-OH Vitamin D Total 47.9 TSH 2.01 Ur Specific [place] 1.020 Urine Protein Negative Urine Glucose (UA) Negative Urine Blood Negative Assessment and Plan Assessment & Plan (1) Pure hypercholesterolemia: Code(s): E78.00 - Pure hypercholesterolemia, unspecified Plan: Results of her labs done last week reviewed and discussed with patient Reinforced low cholesterol diet Will recheck her labs and fasting lipids in 4 months for follow up (2) Benign essential hypertension: Code(s): I10 - Essential (primary) hypertension Plan: Reinforced low sodium diet - goal is systolic BP of at least 130 mm or less Continue HCTZ 25 mg QD and Losartan 50 mg QD (3) Impaired fasting glucose: Code(s): R73.01 - Impaired fasting glucose Plan: HgbA1c was normal at 5.4% when last checked a few months ago Reinforced low calorie/low carb diet, exercise as tolerated (4) Elevated LFTs: Code(s): R79.89 - Other specified abnormal findings of blood chemistry Plan: Improved - LFTs have remained normal on her recent labs Will continue to monitor her LFTs regularly (5) GERD without esophagitis: Code(s): K21.9 - Gastro-esophageal reflux disease without esophagitis Plan: Dietary restrictions reinforced Continue Omeprazole to 20 mg BID Follow up with GI as scheduled - had repeat EGD done last year (2021) (6) Female bladder prolapse: Code(s): N81.10 - Cystocele, unspecified Plan: S/P surgery (bladder lift) with Dr. Tita Gonzalez a few months ago on 07/04/[address] 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: Code(s): D04.61 - Carcinoma in situ of skin of right upper limb, including shoulder Plan: S/P surgical excision Follow up with oncology and dermatology as scheduled for continuing surveilance (8) Osteoporosis: Code(s): M81.0 - Age-related osteoporosis without current pathological fracture Qualifiers: Osteoporosis type: age-related Presence of current pathological fracture: without current pathological fracture Qualified Code(s): M81.0 - Age- related osteoporosis without current pathological fracture Plan: BMD done in April 2022 revealed findings of osteoporosis - (+) osteoporosis based on the lowest T-score value of -3.2 in the lumbar spine Reinforced fall precautions and patient is instructed to continue taking her Vitamin D and oral Calcium supplements daily Have offered to start her on treatment or refer her to Endocrinology for further management but patient declined and states that she would like to hold off on this for now and will call for orders/referral if she feels ready to do so (9) Varicose veins of both lower extremities with pain: Code(s): I83.813 - Varicose veins of bilateral lower extremities with pain Plan: Follow up with vascular surgery as scheduled (10) Left foot pain: Code(s): M79.672 - Pain in left foot Plan: Patient does not think that her left foot (dorsal) pain is related to her vascular issues Will send her for x-rays of the left foot for further evaluation (11) Low back pain: Code(s): M54.50 - Low back pain, unspecified Qualifiers: Chronicity: unspecified Back pain laterality: midline Sciatica presence: without sciatica Qualified Code(s): M54.50 - Low back pain, unspecified Plan: Lumbar spine x-rays done back in 2017 revealed (+) mild degenerative changes over the lumbar spine Reinforced activity and weight-lifting restrictions so as not to aggravate her low back pain Will send patient for repeat lumbar spine x-rays for further evaluation (12) Left hip pain: Code(s): M25.552 - Pain in left hip Plan: Will send patient for left hip x-rays for further evaluation of her recent increasing left hip pain Advised that she most likely has either bursitis or osteoarthritis and may need referral to orthopedics if symptoms get worse (13) Right shoulder pain: Code(s): M25.511 - Pain in right shoulder Qualifiers: Chronicity: unspecified Qualified Code(s): M25.511 - Pain in right shoulder Plan: Will send patient for right shoulder x-rays for further evaluation (14) Anxiety: Code(s): F41.9 - Anxiety disorder, unspecified Plan: Continue Lorazepam 0.5 mg TID PRN Continue Bupropion XL 150 mg Q AM Was started on Citalopram [address] Levi last year but she could not tolerate the Rx Was started on Sertraline 25 mg QD by neurology a few months ago but she has not started on the Rx yet - is not sure if she wants to take it or not (15) Obesity (BMI 30-39.9): Code(s): E66.9 - Obesity, unspecified Plan: Reinforced diet/exercise as tolerated/lose weight Plan Flu vaccine given today Follow up in 4 months Orders: Orders XR foot LT 2V Today M79.672 - Pain in left foot XR shoulder RT min 2V Today M25.511 - Pain in right shoulder XR lumbar spine 2-3V Today M54.50 - Low back pain, unspecified Influenza [id number] Immunization Today Z23 - Encounter for immunization Hemoglobin A1c 4 Months R73.01 - Impaired fasting glucose Complete Blood Count Auto Diff 4 Months I10 - Essential (primary) hypertension Comprehensive [place]. Panel Fast 4 Months E78.00 - Pure hypercholesterolemia, unspecified Lipid Panel 4 Months E78.00 - Pure hypercholesterolemia, unspecified TSH reflex Free T4 4 Months E78.00 - Pure hypercholesterolemia, unspecified UA CC w/rflx Micro + Cult 4 Months R30.0 - Dysuria Vitamin D 25-OH Total 4 Months E55.9 - Vitamin D deficiency, unspecified XR hip LT min 2V Today M25.552 - Pain in left hip Coding Level of Care Code Est Pt Level 4 (71057) Diagnoses Pure hypercholesterolemia E78.00 Benign essential hypertension I10 Impaired fasting glucose R73.01 Elevated LFTs R79.89 GERD without esophagitis K21.9 Female bladder prolapse N81.10 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
== END 2023-10-05 13:35 | disposition home or self-care (01) ==
PROVIDERS: PCP Internal Medicine; Visit Provider Internal Medicine
DX: Z23 Encounter for immunization (principal)
CPT/HCPCS: 90471; 90686; 99214

== ENCOUNTER 2023-10-05 13:50 | Outpatient (REF) | payer BC, SELFPAY ==
--- NOTE | ~2023-10-05 | XR_ITS ---
EXAMINATION: Right shoulder series left hip series left foot series. CLINICAL INFORMATION: Pain in the left foot left hip and right shoulder. COMPARISON: None. TECHNIQUE: 4 views of the right shoulder. 2 views left hip. 3 views of the left foot. FINDINGS: Right shoulder: There is moderate to severe hypertrophic osteoarthritis of the acromioclavicular joint. Glenohumeral joint: Normal. Surrounding bone and soft tissues unremarkable. Left hip: Small marginal osteophytes without joint space narrowing indicative of mild osteoarthritis. Surrounding bone and soft tissues unremarkable. Left foot: Bones joints and soft tissues are normal. XR/XR hip LT min 2V IMPRESSION: RIGHT SHOULDER: Moderate to severe osteoarthritis of the acromioclavicular joint. LEFT HIP: Mild osteoarthritis. LEFT FOOT: Normal.
--- NOTE | ~2023-10-05 | XR_ITS ---
EXAMINATION: Right shoulder series left hip series left foot series. CLINICAL INFORMATION: Pain in the left foot left hip and right shoulder. COMPARISON: None. TECHNIQUE: 4 views of the right shoulder. 2 views left hip. 3 views of the left foot. FINDINGS: Right shoulder: There is moderate to severe hypertrophic osteoarthritis of the acromioclavicular joint. Glenohumeral joint: Normal. Surrounding bone and soft tissues unremarkable. Left hip: Small marginal osteophytes without joint space narrowing indicative of mild osteoarthritis. Surrounding bone and soft tissues unremarkable. Left foot: Bones joints and soft tissues are normal. XR/XR shoulder RT min 2V IMPRESSION: RIGHT SHOULDER: Moderate to severe osteoarthritis of the acromioclavicular joint. LEFT HIP: Mild osteoarthritis. LEFT FOOT: Normal.
--- NOTE | ~2023-10-05 | XR_ITS ---
EXAMINATION: Right shoulder series left hip series left foot series. CLINICAL INFORMATION: Pain in the left foot left hip and right shoulder. COMPARISON: None. TECHNIQUE: 4 views of the right shoulder. 2 views left hip. 3 views of the left foot. FINDINGS: Right shoulder: There is moderate to severe hypertrophic osteoarthritis of the acromioclavicular joint. Glenohumeral joint: Normal. Surrounding bone and soft tissues unremarkable. Left hip: Small marginal osteophytes without joint space narrowing indicative of mild osteoarthritis. Surrounding bone and soft tissues unremarkable. Left foot: Bones joints and soft tissues are normal. XR/XR foot LT 2V IMPRESSION: RIGHT SHOULDER: Moderate to severe osteoarthritis of the acromioclavicular joint. LEFT HIP: Mild osteoarthritis. LEFT FOOT: Normal.
--- NOTE | ~2023-10-05 | XR_ITS ---
EXAMINATION: XR LUMBOSACRAL SPINE CLINICAL INFORMATION: Low back pain, unspecified COMPARISON: Lumbar spine 02/23/2017 TECHNIQUE: Three views of the lumbosacral spine. FINDINGS: There are 6 lumbar-type vertebral bodies. The height of the vertebral bodies is well-maintained. Alignment is maintained. There is a subtle convex right lumbar curve. There is mild loss of disc space height at L6-S1. There is degenerative facet joint disease at L5-L6 and L6-S1. There is a staple line in the pelvis consistent with a segmental bowel resection. XR/XR lumbar spine 2-3V IMPRESSION: 1. 6 lumbar-type vertebral bodies. 2. Degenerative disc disease at L6-S1. 3. Degenerative facet joint disease at L5-L6 and L6-S1.
== END 2023-10-05 13:51 | disposition home or self-care (01) ==
LOC: HO.XRAY 13:50
PROVIDERS: PCP Internal Medicine; Visit Provider Internal Medicine
DX: M25.511 Pain in right shoulder (principal); M79.672 Pain in left foot; M54.50 Low back pain, unspecified; M25.552 Pain in left hip
CPT/HCPCS: 72100; 73030; 73502; 73620

== ENCOUNTER 2024-03-14 12:39 | Outpatient (AMB) | payer BC, SELFPAY ==
--- NOTE | 2024-03-14 12:42 | AM.OFFWIN_ITS ---
Intake Vital Signs 03/14/24 12:43 Height 5 ft 6 in Weight 194 lb BMI 31.3 BP 136/82 Blood Pressure Location Rt brachial Position Sitting Pulse 81 Pulse Source Pulse Oximeter Pulse Oximetry (%) 98 Intake Visit Reasons: EP Lft foot swollen Intake Note: pt is her for left foot swollen Patient Tobacco Use Status: Never used Tobacco Allergies Peanut Butter Allergy (Severe, Verified 03/14/24 12:44) Anaphylaxis latex [Latex] Allergy (Intermediate, Verified 03/14/24 12:44) RASH shellfish derived Allergy (Unknown, Verified 03/14/24 12:44) Anaphylaxis Do you need a note to return to daycare/school/sports/work: No HPI HPI Comments History of Present Illness Details 64 y/o female patient who presents to [facility] in clinic with c/o left foot swelling and tenderness. She does have h/o Varicose veins bilateral extremities and currently sees Vascular surgery services - had an appointment today. She also wears thigh high compression stockings. 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 Dysphagia 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 extremities with pain Aphthous ulcer of mouth Obesity (BMI 30-39.9) Anxiety GERD without esophagitis Impaired fasting glucose Elevated LFTs Pure hypercholesterolemia Benign essential hypertension Surgical History (Updated 10/05/23 @ 14:02 by Sandip Ricardo MD) H/O of anterior colporrhaphy (~07/04/23) History of esophagogastroduodenoscopy (EGD) History of colectomy History of partial hysterectomy History of foot surgery History of bladder surgery History of biopsy S/P bilateral salpingo-oophorectomy History of removal of cyst History of colonoscopy History of hemorrhoidectomy Family History Father Colon cancer Diabetes Mother Diabetes GERD (gastroesophageal reflux disease) Daughter Eating disorder Bipolar 1 disorder Social History Housing: House Alcohol intake: never Patient Tobacco Use Status: Never used Tobacco e-Cigarette/Vaping Use: Never Used Second Hand Smoke Exposure: Yes service: No Current occupational status: employed 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 Current occupational exposures/hazards: No Cognitive needs: No Hearing needs: No Vision needs: Yes (reading glasses) Female Reproductive History Menstrual Age of Menarche: 11 Review of Systems Const All systems reviewed & are unremarkable except as noted in HPI and below Physical Exam Vital Signs: Last Vital Signs Pulse 81 03/14/24 12:43 BP 136/82 03/14/24 12:43 Pulse Ox 98 03/14/24 12:43 BMI result Body Mass Index 31.3 Const General: comfortable and no acute distress Orientation/consciousness: patient oriented x3 Neuro General: patient oriented x3, gait normal and moves all extremities Extrem Right lower extremity: lower leg (Varicose veins visible on thighs and legs) Details: non-pitting edema Left lower extremity: lower leg (Varicose veins visible on thighs and legs) Details: non-pitting edema; no palpable cords Psych Speech and movement: Normal speech and movement present Assessment & Plan Assessment & Plan (1) Varicose veins of both lower extremities with pain: Code(s): I83.813 - Varicose veins of bilateral lower extremities with pain Plan: - Continue to wear compression stockings - F/U with Vascular surgeons. - Avoid prolonged standing and sitting - Elevate lower extremities - Ibuprofen 400 mg for pain relief. Coding Level of Care Code Est Pt Level 3 (17509) Diagnoses Varicose veins of both lower extremities with pain I83.813 Time Spent (min) 15
[2024-03-14 12:43] VITALS: BP 136/82; PULSE 81; O2SAT 98; BMI 31.3
== END 2024-03-14 13:26 | disposition home or self-care (01) ==
PROVIDERS: PCP Internal Medicine; Visit Provider Nurse Practitioner Family
DX: I83.813 Varicose veins of bilateral lower extremities with pain (principal)
CPT/HCPCS: 99213

== ENCOUNTER 2024-03-28 08:40 | Outpatient (REF) | payer BC, SELFPAY | END 2024-03-28 08:41 | disposition home or self-care (01) | LOC: HO.MAMMO 08:40 | PROVIDERS: PCP Internal Medicine; Visit Provider Internal Medicine | DX: Z12.31 Encounter for screening mammogram for malignant neoplasm of breast (principal) | CPT/HCPCS: 77063; 77067 ==

== ENCOUNTER → 2024-03-28 08:45 | Outpatient (BNV) | payer BC, SELFPAY | PROVIDERS: PCP Internal Medicine; Visit Provider Radiology Diagnostic Radiology | DX: Z12.31 Encounter for screening mammogram for malignant neoplasm of breast (principal) | CPT/HCPCS: 77063; 77067 ==

== ENCOUNTER 2024-05-23 06:56 | Outpatient (REF) | payer BC, SELFPAY ==
[2024-05-23 07:17] LABS: MANUAL DIFF FLAG NO
[2024-05-23 09:19] LABS: Basophils Percent Auto 0.4 % (0-2); Eosinophils Absolute Auto 0.3 X10*3/uL (0.0-0.4); Eosinophils Percent Auto 4.4 % (0-4); Hematocrit 39.4 % (37.0-47.0); Hemoglobin 12.7 g/dl (12.0-16.0); Imm Gran Abs Auto 0.01 X10*3/uL (0.00-0.03); Imm Gran Pct Auto 0.1 % (0.0-0.4); Lymphocytes Absolute Auto 2.2 X10*3/uL (1.2-4.9); Lymphocytes Percent Auto 29.8 % (20-40); Mean Corpuscular HGB Conc 32.2 g/dl (31.0-35.0); Mean Corpuscular Hemoglobin 27.1 pg (27.0-33.0); Mean Platelet Volume 9.8 fL (9.4-12.3); Monocytes Absolute Auto 0.5 X10*3/uL (0.1-1.2); Neutrophils Absolute Auto 4.3 x10*3/uL (2.0-8.3); Neutrophils Percent Auto 58.3 % (45-73); Platelet Count 287 X10*3/uL (160-400); Red Blood Count 4.69 X10*6/uL (4.20-5.50); White Blood Count 7.5 X10*3/uL (4.8-10.8)
[2024-05-23 09:34] LABS: Estimated Average Glucose 120 mg/dL; Hemoglobin A1c % 5.8 % (<6.0)
[2024-05-23 09:58] LABS: Appearance Urine Clear; Color Urine Yellow; Glucose Urine UA Negative (Negative); Leukocyte Esterase Urine Trace (Negative); Nitrite Urine Negative (Negative); PH 6.5 (5.0-9.0); UMIC TRIGGER UACC YES; Urine Blood Negative (Negative); Urine Ketones Negative (Negative); Urine Protein Negative (Neg-Trace)
[2024-05-23 10:02] LABS: Bacteria Urine None Seen (None Seen); Hyaline Casts Urine 0-2 /LPF (0-2); RBC Urine 0-2 /HPF (0-2); Squamous Epithelial Cell Urine 0-2 /HPF (0-2); WBC Urine 0-5 /HPF (0-5)
[2024-05-23 10:18] LABS: Alanine Aminotransferase 21 U/L (0-31); Albumin Level 4.2 g/dL (3.5-5.0); Alkaline Phosphatase 82 U/L (39-117); Anion Gap 12 (12-20); Aspartate Amino Transferase 20 U/L (5-31); Bilirubin Total 0.5 mg/dL (0.0-1.0); Blood Urea Nitrogen 12 mg/dL (9-16); Calcium 9.4 mg/dL (8.4-10.2); Carbon Dioxide 29 mmol/L (22-29); Chloride 103 mmol/L (96-108); Cholesterol 196 mg/dL (<200); Estimated Glomerular Filt Rate > 60; Glucose Fasting 103 mg/dL (60-99); HDL Cholesterol 58 mg/dL (>40); LDL Cholesterol Calculated 118 mg/dL (<100); Potassium 3.6 mmol/L (3.3-5.1); Sodium 140 mmol/L (135-145); Total Protein 7.5 g/dL (6.5-8.0); Triglycerides 102 mg/dL (<150)
[2024-05-23 10:20] LABS: TSH reflex Free T4 2.23 uIU/mL (0.32-4.0); Vitamin D 25-OH Total 47.4 ng/mL (>30)
== END 2024-05-23 06:57 | disposition home or self-care (01) ==
LOC: HO.LAB 06:56
PROVIDERS: PCP Internal Medicine; Visit Provider Internal Medicine
DX: I10 Essential (primary) hypertension (principal); E78.00 Pure hypercholesterolemia, unspecified; R73.01 Impaired fasting glucose; E55.9 Vitamin D deficiency, unspecified
CPT/HCPCS: 36415; 80053; 80061; 81001; 82306; 83036; 84443; 85025

== ENCOUNTER 2024-05-30 15:20 | Outpatient (AMB) | payer BC, SELFPAY ==
--- NOTE | 2024-05-30 15:35 | A.OFFPC_ITS ---
Vital Signs 05/30/24 15:36 05/30/24 16:12 Height 5 ft 6 in Weight 191 lb BMI 30.8 BP 160/94 H 160/94 H Blood Pressure Location Lt brachial Lt brachial Position Sitting Sitting Pulse 74 Pulse Source Pulse Oximeter Pulse Oximetry (%) 98 Intake Visit Reasons: hyperlipidemia, HTN, IFG Learning Support Resource Room Teacher Required: No Accompanied by: Spouse Allergies Peanut Butter Allergy (Severe, Verified 05/30/24 15:56) Anaphylaxis latex [Latex] Allergy (Intermediate, Verified 05/30/24 15:56) RASH shellfish derived Allergy (Unknown, Verified 05/30/24 15:56) Anaphylaxis Medication List - Last Reconciled 05/30/24 by Sandip Ricardo MD albuterol sulfate 90 mcg/actuation 2 puffs inhalation Q6H PRN aspirin 81 mg PO DAILY bupropion HCl XL 150 mg PO QAM 90 days Ca carb-D3-mag hw-crv-aggy-Zn 300 mg-20 mcg- 25 mg-0.5 mg (Caltrate-D3 Plus Minerals) 1 tab PO DAILY cholecalciferol (vitamin D3) 25 mcg PO DAILY hydrochlorothiazide 25 mg PO DAILY 90 days inhalational spacing device (InspiraChamber spacer) As directed lorazepam 0.5 mg PO TID PRN 90 days losartan 50 mg PO DAILY 90 days mecobalamin (vitamin B12) mcg PO snkxmiip-dwf-bntr-FA-vit K-lut 8 mg iron-400 mcg-50 mcg (Multivitamin Women 50 Plus) 1 tab PO DAILY omeprazole 20 mg PO BID 90 days simethicone (Gas Relief (simethicone)) 125 mg PO TID PRN sucralfate (Carafate) 10 mL PO TID Ventolin HFA 90 mcg/actuation (albuterol sulfate) 2 puffs inhalation Q6H PRN 30 days NS Tobacco use date assessed: 05/30/24 Fall risk assessment: No Falls in past year Last assessed Fall Risk: 05/30/24 Dental Screening Dental Screen Date: 05/30/24 Did you have a dental visit in the last 12 months?: Yes Did you have a dental problem in the last 6 months where you did not have access to dental care?: No Was dental information given to patient?: Patient has dentist HPI hyperlipidemia, HTN, IFG HPI Details Patient comes in today for her follow up visit States that she feels okay She denies any headaches or dizziness Denies any chest pains, no increased SOB No nausea/vomiting, no abdominal pain No change in bowel habits noted She had her follow up labs done last week - to discuss her results [facility] Medical History 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 Dysphagia 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 extremities with pain Aphthous ulcer of mouth Obesity (BMI 30-39.9) Anxiety GERD without esophagitis Impaired fasting glucose Elevated LFTs Pure hypercholesterolemia Benign essential hypertension Surgical History H/O of anterior colporrhaphy (~07/04/23) History of esophagogastroduodenoscopy (EGD) History of colectomy History of partial hysterectomy History of foot surgery History of bladder surgery History of biopsy S/P bilateral salpingo-oophorectomy History of removal of cyst History of colonoscopy History of hemorrhoidectomy Family History Father Colon cancer Diabetes Mother Diabetes GERD (gastroesophageal reflux disease) Daughter Eating disorder Bipolar 1 disorder Social History Housing: House Alcohol intake: never Patient Tobacco Use Status: Never used Tobacco e-Cigarette/Vaping Use: Never Used Second Hand Smoke Exposure: Yes service: No Current occupational status: employed 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 1. Little interest or pleasure in doing things: not at all 2. Feeling down, depressed, or hopeless: not at all 3. Trouble falling or staying asleep, or sleeping too much: not at all 4. Feeling tired or having little energy: not at all 5. Poor appetite or overeating: not at all 6. Feeling bad about yourself - or that you are a failure or have let yourself or your family down: not at all 7. Trouble concentrating on things, such as reading the newspaper or watching television: not at all 8. Moving or speaking so slowly that other people could have noticed. Or the opposite - being so fidgety or restless that you have been moving around a lot more than usual: not at all 9. Thoughts that you would be better off or of hurting yourself in some way: not at all Total score: 0 Depression Screening Interpretation: Negative Depression Screening Done: Yes 94397 - PHQ-9 Billing: Yes Source: Developed by Drs. Willie Burns, Cora Guzmán, Phu Reynoso and colleagues, with an educational charlette from [employer]. Thrive Questionnaire Date Thrive assessed: 05/30/24 I am a: Patient What is your living situation today?: I have a steady place to live Within the past 12 months, did the food you bought not last and you didn't have the money to get more?: Never true Within the past 12 months, did you worry whether your food would run out before you got money to buy more?: Never true Do you have trouble paying for medicines?: No Do you have trouble getting transportation to medical appointments?: No Do you have trouble paying your heating and electricity bill?: No Do you have trouble taking care of your child, family member or friend?: No Do you have trouble with day-to-day activities such as bathing, preparing meals, shopping, managing finances, etc.?: No Are you currently unemployed and looking for a job?: No Are you interested in more education?: No Please select the resources that you would like help with: None Currently or been in a relationship where the following occur: No concerns reported THRIVE Score: 0 AUDIT C Alcohol Use Questionnaire (AUDIT-C) 1. How often do you have a drink containing alcohol?: Never 3. How often do you have six or more drinks on one occasion?: Never Total Score: 0 Score Reviewed/Action Taken: Yes CANDE-7 AMB Questionnaire CANDE-7 Date CANDE - 7 assessed: 05/30/24 Feeling nervous, anxious, or on edge: 0 = Not at all Not being able to stop or control worryin = Not at all Worrying too much about different things: 0 = Not at all Trouble relaxin = Not at all Being so restless that it is hard to sit still: 0 = Not at all Becoming easily annoyed or irritable: 0 = Not at all Feeling afraid as if something awful might happen: 0 = Not at all Total CANDE-7 score (0-4 normal; 5-9 mild; 10-14 moderate; 15-21 severe): 0 Source: Developed by Drs. Willie Burns, Cora Guzmán, Phu Reynoso and colleagues, with an educational charlette from [employer]. CANDE-7 Assessment Billing CANDE-7 Assessment Tool: CANDE-7 Assessment 18731 Review of Systems Const Denies chills, Reports excessive sweating (lately, especially when she is working), Denies fatigue, Denies fever(s) and Denies headache(s) ENT Denies dysphagia, Denies dizziness, Denies otalgia, Denies headache(s), Denies neck pain, Denies odynophagia and Denies sore throat Card Denies chest pain, Denies rapid heart rate, Denies irregular heart rhythm, Denies palpitations and Reports dyspnea on exertion (at times, mild) Resp Denies chest congestion, Denies cough, Denies pain on inspiration, Reports dyspnea on exertion (at times, mild) and Denies wheezing GI Reports abdominal pain (mostly over the lower abdomen / suparpubic area - bladder lift 2 mos ago), Denies bloating, Denies constipation, Denies dysphagia, Denies heartburn, Denies diarrhea, Denies nausea, Denies odynophagia and Denies vomiting Denies hematuria, Denies urinary frequency, Reports dysuria (improving), Reports urinary incontinence (at times) and Denies urinary urgency Musc Reports back pain (increasing, over the lower back), Reports arthralgias (left hip and right shoulder (see HPI); also (+) pain over top of L foot ), Denies joint swelling and Denies neck pain Skin/Breast Denies rash Neuro Denies dizziness, Denies headache(s) and Denies paresthesias Psych Denies anxiety and Denies depression Endo Reports excessive sweating (lately, especially when she is working), Denies fatigue and Denies palpitations Jourdan/Lymph Denies easy bruising Aller/Immun Denies wheezing Physical exam (Primary Care) Vital Signs: Last Vital Signs Pulse 74 05/30/24 15:36 BP 160/94 H 05/30/24 16:12 Pulse Ox 98 05/30/24 15:36 BMI result Body Mass Index 30.8 Tobacco/Smoking Status: Tobacco use Status Tobacco use date assessed 05/30/24 05/30/24 15:43 Patient Tobacco Use Status Never used Tobacco 05/30/24 15:35 e-Cigarette/Vaping Use Never Used 05/30/24 15:35 PHQ-9: PHQ-9 Score PHQ-9: Total score 0 05/30/24 16:14 Depression Screening Interpretation: Negative Thrive Assessment: Date of Thrive Assessment Date Thrive assessed 05/30/24 05/30/24 15:43 Currently or been in a relationship where the following occur: No concerns reported Const General: no acute distress and alert HENMT Ears: TM's normal bilaterally and EAC's normal Throat: Yes posterior oropharynx normal and Yes tonsils normal (no TP congestion) Neck Neck: Yes no lymphadenopathy and Yes supple Thyroid: Thyroid normal Resp Auscultation: clear to auscultation bilaterally, no rales and no wheezes Cardio Rate: regular rate Rhythm: regular rhythm Heart sounds: no murmurs GI Palpation (GI): Soft to palpation and nontender Auscultation: normal bowel sounds General: Yes no CVA tenderness Back/Spine/Pelvis Back: no CVA tenderness Thoracic/Lumbar Spine: lumbar spinal tenderness Skin Rashes: no rashes Extrem General: Yes no clubbing, cyanosis or edema Right upper extremity: shoulder/upper arm Details: tenderness Location: of the A-C joint Left lower extremity: hip/thigh Details: tenderness Location: of the hip and foot Details: tenderness Location: of the dorsal foot and no edema Results Reviewed Results Reviewed: Laboratory Tests 05/23/24 05/23/24 07:04 07:10 WBC 7.5 Hgb 12.7 Hct 39.4 Plt Count 287 Sodium 140 Potassium 3.6 Creatinine 0.72 Estimated GFR > 60 Fasting Glucose 103 H Hemoglobin A1c % 5.8 Calcium 9.4 AST 20 ALT 21 Triglycerides 102 Cholesterol 196 LDL Cholesterol, Calc 118 H HDL Cholesterol 58 25-OH Vitamin D Total 47.4 TSH 2.23 Ur Specific [place] 1.020 Urine Protein Negative Urine Glucose (UA) Negative Urine Blood Negative Urine Nitrite Negative Ur Leukocyte Esterase Trace H Assessment and Plan Assessment & Plan (1) Pure hypercholesterolemia: Code(s): E78.00 - Pure hypercholesterolemia, unspecified Plan: Results of her labs done last week reviewed and discussed with patient Reinforced low cholesterol diet Will recheck her labs and fasting lipids in 4 months for follow up (2) Benign essential hypertension: Code(s): I10 - Essential (primary) hypertension Plan: Reinforced low sodium diet - goal is systolic BP of at least 130 mm or less Continue HCTZ 25 mg QD and Losartan 50 mg QD (3) Impaired fasting glucose: Code(s): R73.01 - Impaired fasting glucose Plan: HgbA1c was normal at 5.4% when last checked a few months ago although this has gone up to 5.8% on her labs done last week Reinforced low calorie/low carb diet, exercise as tolerated (4) Elevated LFTs: Code(s): R79.89 - Other specified abnormal findings of blood chemistry Plan: Improved - LFTs have remained normal on her recent labs Will continue to monitor her LFTs regularly (5) GERD without esophagitis: Code(s): K21.9 - Gastro-esophageal reflux disease without esophagitis Plan: Dietary restrictions reinforced Continue Omeprazole to 20 mg BID Follow up with GI as scheduled - had repeat EGD done last year (2021) (6) Female bladder prolapse: Code(s): N81.10 - Cystocele, unspecified Plan: S/P surgery (bladder lift) with Dr. Tita Gonzalez last year on 07/04/[address] 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: Code(s): D04.61 - Carcinoma in situ of skin of right upper limb, including shoulder Plan: S/P surgical excision Follow up with oncology and dermatology as scheduled for continuing surveilance (8) Osteoporosis: Code(s): M81.0 - Age-related osteoporosis without current pathological fracture Qualifiers: Osteoporosis type: age-related Presence of current pathological fracture: without current pathological fracture Qualified Code(s): M81.0 - Age- related osteoporosis without current pathological fracture Plan: BMD done in April 2022 revealed findings of osteoporosis - (+) osteoporosis based on the lowest T-score value of -3.2 in the lumbar spine Reinforced fall precautions and patient is instructed to continue taking her Vitamin D and oral Calcium supplements daily Have offered to start her on treatment or refer her to Endocrinology for further management but patient declined and states that she would like to hold off on this for now and will call for orders/referral if she feels ready to do so Will consider having her get repeat BMD at her next follow up appt in 4 months (9) Varicose veins of both lower extremities with pain: Code(s): I83.813 - Varicose veins of bilateral lower extremities with pain Plan: Follow up with vascular surgery as scheduled (10) Low back pain: Code(s): M54.50 - Low back pain, unspecified Qualifiers: Back pain laterality: midline Chronicity: unspecified Sciatica presence: without sciatica Qualified Code(s): M54.50 - Low back pain, unspecified Plan: Reinforced activity and weight-lifting restrictions so as not to aggravate her low back pain Lumbar spine x-rays done back in 2016 revealed (+) mild degenerative changes over the lumbar spine Repeat lumbar spine x-rays done last September 2023 revealed similar findings although x-rays revealed the presence of a 6th lumbar vertebra - (+) 6 lumbar- type vertebral bodies; degenerative disc disease at L6-S1 and degenerative facet joint disease at L5-L6 and L6-S1 (11) Left hip pain: Code(s): M25.552 - Pain in left hip Plan: Left hip x-rays back in September 2023 revealed (+) mild OA changes Can consider referral to orthopedics if her hip symptoms get worse (12) Right shoulder pain: Code(s): M25.511 - Pain in right shoulder Qualifiers: Chronicity: unspecified Qualified Code(s): M25.511 - Pain in right shoulder Plan: Right shoulder x-rays done in September 2023 revealed (+) moderate to severe OA changes in the AC joint Have advised her to see orthopedics if her shoulder pain gets worse - may benefit from cortisone injection(s) when appropriate (13) Anxiety: Code(s): F41.9 - Anxiety disorder, unspecified Plan: Continue Lorazepam 0.5 mg TID PRN Continue Bupropion XL 150 mg Q AM Was started on Citalopram [address] Levi last year but she could not tolerate the Rx Was started on Sertraline 25 mg QD by neurology a few months ago but she has not started on the Rx yet - is not sure if she wants to take it or not (14) Obesity (BMI 30-39.9): Code(s): E66.9 - Obesity, unspecified Plan: Reinforced diet/exercise as tolerated/lose weight Plan Follow up in 4 months Orders: Orders Complete Blood Count Auto Diff 4 Months D64.9 - Anemia, unspecified Lipid Panel 4 Months E78.00 - Pure hypercholesterolemia, unspecified Hemoglobin A1c 4 Months R73.01 - Impaired fasting glucose Vitamin D 25-OH Total 4 Months E55.9 - Vitamin D deficiency, unspecified Comprehensive [place]. 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 D04.61 Age-related osteoporosis without current pathological fracture M81.0 Osteoporosis type: age-related Presence of current pathological fracture: without current pathological fracture Varicose veins of both lower extremities with pain I83.813 Midline low back pain without sciatica, unspecified chronicity M54.50 Back pain laterality: midline Chronicity: unspecified Sciatica presence: without sciatica Left hip pain M25.552 Right shoulder pain, unspecified chronicity M25.511 Chronicity: unspecified Anxiety F41.9 Obesity (BMI 30-39.9) E66.9 Additional Codes CANDE-7 Assessment Billing - CANDE-7 Assessment Tool: CANDE-7 Assessment 38353 ([id number])
[2024-05-30 15:36] VITALS: BP 160/94; PULSE 74; O2SAT 98; BMI 30.8
[2024-05-30 16:12] VITALS: BP 160/94
== END 2024-05-30 16:22 | disposition home or self-care (01) ==
PROVIDERS: PCP Internal Medicine; Visit Provider Internal Medicine
DX: E78.00 Pure hypercholesterolemia, unspecified (principal); I10 Essential (primary) hypertension; R73.01 Impaired fasting glucose; R74.01 Elevation of levels of liver transaminase levels; K21.9 Gastro-esophageal reflux disease without esophagitis; N81.10 Cystocele, unspecified; D04.61 Carcinoma in situ of skin of right upper limb, including shoulder; M81.0 Age-related osteoporosis without current pathological fracture; I83.813 Varicose veins of bilateral lower extremities with pain; M54.50 Low back pain, unspecified; M25.552 Pain in left hip; M25.511 Pain in right shoulder; F41.9 Anxiety disorder, unspecified; E66.9 Obesity, unspecified
CPT/HCPCS: 99214

== ENCOUNTER 2024-06-06 08:38 | Outpatient (AMB) | payer BC, SELFPAY ==
--- NOTE | 2024-06-06 08:39 | MHC.OFFWIV ---
Intake Vital Signs 06/06/24 08:43 Height 5 ft 6 in Weight 186 lb BMI 30.0 BP 130/90 H Blood Pressure Location Lt brachial Position Sitting Pulse 79 Pulse Source Pulse Oximeter Pulse Oximetry (%) 92 Oxygen Delivery Method Room Air Intake Visit Reasons: Urinary tract infection Intake Note: Patient here for UTI. she has hx of multiple bladder surgeries. Patient Tobacco Use Status: Never used Tobacco Allergies Peanut Butter Allergy (Severe, Verified 06/06/24 08:47) Anaphylaxis latex [Latex] Allergy (Intermediate, Verified 06/06/24 08:47) RASH shellfish derived Allergy (Unknown, Verified 06/06/24 08:47) Anaphylaxis Do you need a note to return to daycare/school/sports/work: No HPI Urinary tract infection HPI Details This note is constructed using voice recognition software. While every effort has been made to ensure accuracy, fireworks maker errors may have been included. The patient is a 64 year old female who presents to the clinic today with concern for UTI since yesterday. She notes that she had gone to the beach, while she was changing into her bathing suit she suddenly felt like she had to urinate, and was unable to make it to the bathroom. She continued to have frequency, urgency, burning with urination since then. She has had multiple bladder lift surgeries, the last being in June of 2023, they continued to be unsuccessful. But she has not followed with anybody for specialty in some time. She notes that she was treated for UTI back in September, in which required her to go to the emergency room. She was treated with ciprofloxacin, and requested that medication be sent as that seemed to be the most effective of anything she has tried in the past. 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 Dysphagia 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 extremities with pain Aphthous ulcer of mouth Obesity (BMI 30-39.9) Anxiety GERD without esophagitis Impaired fasting glucose Elevated LFTs Pure hypercholesterolemia Benign essential hypertension Surgical History H/O of anterior colporrhaphy (~07/04/23) History of esophagogastroduodenoscopy (EGD) History of colectomy History of partial hysterectomy History of foot surgery History of bladder surgery History of biopsy S/P bilateral salpingo-oophorectomy History of removal of cyst History of colonoscopy History of hemorrhoidectomy Family History Father Colon cancer Diabetes Mother Diabetes GERD (gastroesophageal reflux disease) Daughter Eating disorder Bipolar 1 disorder Social History Housing: House Alcohol intake: never Patient Tobacco Use Status: Never used Tobacco e-Cigarette/Vaping Use: Never Used Second Hand Smoke Exposure: Yes service: No Current occupational status: employed 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 Current occupational exposures/hazards: No Cognitive needs: No Hearing needs: No Vision needs: Yes (reading glasses) Female Reproductive History Menstrual Age of Menarche: 11 Review of Systems Const All systems reviewed & are unremarkable except as noted in HPI and below Physical Exam Vital Signs: Last Vital Signs Pulse 79 06/06/24 08:43 BP 130/90 H 06/06/24 08:43 Pulse Ox 92 06/06/24 08:43 Oxygen Delivery Method Room Air 06/06/24 08:43 BMI result Body Mass Index 30.0 Const General: cooperative, healthy appearing, comfortable, no acute distress and alert Orientation/consciousness: patient oriented x3 Limitations: no limitations Resp Effort & Inspection: normal respiratory effort and able to speak in complete sentences Auscultation: clear to auscultation bilaterally Cardio Jugular venous distension: no JVD Palpation: normal PMI Rate: regular rate Heart sounds: S1 normal heart sound present, S2 normal heart sound present, no click, no gallops, no murmurs and no rubs General: Yes no CVA tenderness Back/Spine/Pelvis Back: no CVA tenderness Skin General skin exam: no rashes or lesions noted, elasticity normal and turgor normal Neuro General: patient oriented x3 Psych Appearance: grossly normal Mental Status: mental status grossly normal Speech and movement: Normal speech and movement present Affect: normal affect Results AMB Urinalysis, Automated UA Leukoctes 500 Rip/uL Last Edit by KYRIE Souza on 06/06/24 08:52 UA Nitrite Positive Last Edit by KYRIE Souza on 06/06/24 08:52 UA Urobilinogen 2 mg/dL Last Edit by Flori Chen [facility] on 06/06/24 08:52 UA Protein 300 mg/dL Last Edit by Flori Chen [facility] on 06/06/24 08:52 UA pH 6.0 Last Edit by Flori Chen [facility] on 06/06/24 08:52 UA Blood 200 Frankie/uL Last Edit by Flori Chen [facility] on 06/06/24 08:52 UA Specific [place] 1.020 Last Edit by Flori Chen [facility] on 06/06/24 08:52 UA Ketone Negative Last Edit by Flori Chen [facility] on 06/06/24 08:52 UA Bilirubin 1 mg/dL Last Edit by Flori Chen [facility] on 06/06/24 08:52 UA Glucose 0 mg/dL Last Edit by Flori Chen [facility] on 06/06/24 08:52 Results Reviewed Results Reviewed: Laboratory Last Values Urine pH (Auto) 6.0 06/06/24 08:51 Specific [place] (Auto) 1.020 06/06/24 08:51 Urine Protein (Auto) 300 mg/dL 06/06/24 08:51 Glucose (UA)(Auto) 0 mg/dL 06/06/24 08:51 Urine Ketones (Auto) Negative 06/06/24 08:51 Urine Blood (Auto) 200 Frankie/uL 06/06/24 08:51 Urine Nitrite (Auto) Positive 06/06/24 08:51 Urine Bilirubin (Auto) 1 mg/dL 06/06/24 08:51 Urine Urobilinogen (Auto) 2 mg/dL 06/06/24 08:51 Leukocyte Esterase (Auto) 500 Rip/uL 06/06/24 08:51 Assessment & Plan Assessment & Plan (1) UTI (urinary tract infection): Code(s): N39.0 - Urinary tract infection, site not specified Qualifiers: Urinary tract infection type: acute cystitis Hematuria presence: with hematuria Qualified Code(s): N30.01 - Acute cystitis with hematuria Plan: Antimicrobial therapy sent to requested pharmacy. Advised patient to increase hydration to help improve symptoms. Offered Pyridium, however she declined at this time. Advised patient to follow up with PCP or urinary specialist with ongoing or worsening symptoms, especially in setting of multiple urinary tract infections over the past several years. Advised monitoring for worsening symptoms including systemic symptoms such as fever, chills. Plan See above for full details and plan. Orders: Orders AMB Urinalysis Automated Today Z13.9 - Encounter for screening, unspecified Medications: New ciprofloxacin HCl 500 mg PO BID 7 days 14 tabs 0RF Coding Level of Care Code Est Pt Level 3 (60574) Diagnoses Acute cystitis with hematuria N30.01 Urinary tract infection type: acute cystitis Hematuria presence: with hematuria
[2024-06-06 08:43] VITALS: BP 130/90; PULSE 79; O2SAT 92
== END 2024-06-06 09:28 | disposition home or self-care (01) ==
PROVIDERS: PCP Internal Medicine; Visit Provider Registered Nurse
DX: Z13.9 Encounter for screening, unspecified (principal); N30.01 Acute cystitis with hematuria
CPT/HCPCS: 81003; 99213

== ENCOUNTER 2024-08-29 12:50 | Outpatient (AMB) | payer BC, SELFPAY ==
--- NOTE | 2024-08-29 14:16 | MHC.OFFWIV ---
Intake Vital Signs 08/29/24 14:18 Weight 196 lb BP 140/90 H Blood Pressure Location Rt brachial Position Sitting Pulse 75 Pulse Source Pulse Oximeter Pulse Oximetry (%) 98 Oxygen Delivery Method Room Air Intake Visit Reasons: EP- Vagina irritation, Stomach ache Intake Note: Patient here for vaginal irritation. Patient Tobacco Use Status: Never used Tobacco Allergies Peanut Butter Allergy (Severe, Verified 08/29/24 14:19) Anaphylaxis latex [Latex] Allergy (Intermediate, Verified 08/29/24 14:19) RASH shellfish derived Allergy (Unknown, Verified 08/29/24 14:19) Anaphylaxis Do you need a note to return to daycare/school/sports/work: No HPI HPI Comments History of Present Illness Details Patient is a 64-year-old female with several complaints today. First she tells me she thinks she has a UTI because she looked in her vagina and it seemed to look red. She says she sometimes have burning with urination and sometimes feels like she is urinating more frequently and with urgency. 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 She also tells me she has abdominal bloating and diarrhea but more recently has more constipation. She tells me that these are not new issues and she has had them for several years. She also tells me she has hemorrhoids and sometimes sees blood on the toilet paper. She says when she goes to the bathroom, she mL a weird smell but can not decide if it is a fishy odor or not. She tells me she did have a colonoscopy but she does not remember how long ago it was not she thinks it was normal. She tells me she has had several feet of her colon resected and multiple abdominal surgeries with her bladder sling. She does see a gastrointestinal doctor, Dr. Levi at [facility]. 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 Dysphagia 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 extremities with pain Aphthous ulcer of mouth Obesity (BMI 30-39.9) Anxiety GERD without esophagitis Impaired fasting glucose Elevated LFTs Pure hypercholesterolemia Benign essential hypertension Surgical History H/O of anterior colporrhaphy (~07/04/23) History of esophagogastroduodenoscopy (EGD) History of colectomy History of partial hysterectomy History of foot surgery History of bladder surgery History of biopsy S/P bilateral salpingo-oophorectomy History of removal of cyst History of colonoscopy History of hemorrhoidectomy Family History Father Colon cancer Diabetes Mother Diabetes GERD (gastroesophageal reflux disease) Daughter Eating disorder Bipolar 1 disorder Social History Housing: House Alcohol intake: never Patient Tobacco Use Status: Never used Tobacco e-Cigarette/Vaping Use: Never Used Second Hand Smoke Exposure: Yes service: No Current occupational status: employed 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 Current occupational exposures/hazards: No Cognitive needs: No Hearing needs: No Vision needs: Yes (reading glasses) Female Reproductive History Menstrual Age of Menarche: 11 Review of Systems Const All systems reviewed & are unremarkable except as noted in HPI and below Physical Exam Vital Signs: Last Vital Signs Pulse 75 08/29/24 14:18 BP 140/90 H 08/29/24 14:18 Pulse Ox 98 08/29/24 14:18 Oxygen Delivery Method Room Air 08/29/24 14:18 Const General: cooperative, healthy appearing, comfortable, no acute distress and well developed Orientation/consciousness: patient oriented x3 Limitations: no limitations HEENT Head: Yes normal to inspection Ears: hearing grossly normal bilaterally General nose exam: Normal external nose present Face and sinus: Yes normal facial exam Eyes General: appearance normal, both eyes and all related structures Neck Neck: Yes normal visual inspection and Yes full ROM Resp Effort & Inspection: normal respiratory effort and able to speak in complete sentences Skin General skin exam: no rashes or lesions noted Neuro General: patient oriented x3 Extrem General: Yes normal to inspection Assessment & Plan Assessment & Plan (1) UTI (urinary tract infection): Code(s): N39.0 - Urinary tract infection, site not specified Qualifiers: Hematuria presence: with hematuria Urinary tract infection type: acute cystitis Qualified Code(s): N30.01 - Acute cystitis with hematuria Plan: We will treat for UTI, it did send a urine culture as the urinalysis was negative for infection in the office. Per our records, patient has previously grown out Proteus which was sensitive to cephalosporins. (2) Vaginal irritation: Code(s): N89.8 - Other specified noninflammatory disorders of vagina Plan: Sent bacterial vaginosis panel. Recommended treating with Vagisil [id number]. (3) Constipation: Code(s): K59.00 - Constipation, unspecified Qualifiers: Constipation type: unspecified constipation type Qualified Code(s): K59.00 - Constipation, unspecified Plan: Recommended adding Metamucil tell her daily regimen. As she does already see a gastrointestinal doctor, recommended if her pain continues she should follow up with him or her PCP. If she develops abdominal pain or fevers, she should go to the emergency department. Plan See above Orders: Orders Bacterial Vaginosis Panel Today N89.8 - Other specified noninflammatory disorders of vagina Urine Culture Today N30.01 - Acute cystitis with hematuria Medications: New cefuroxime axetil 500 mg PO Q12H 10 tabs 0RF Coding Level of Care Code Est Pt Level 4 (68092) Diagnoses Acute cystitis with hematuria N30.01 Hematuria presence: with hematuria Urinary tract infection type: acute cystitis Vaginal irritation N89.8 Constipation, unspecified constipation type K59.00 Constipation type: unspecified constipation type
[2024-08-29 14:18] VITALS: BP 140/90; PULSE 75; O2SAT 98
== END 2024-08-29 17:09 | disposition home or self-care (01) ==
PROVIDERS: PCP Internal Medicine; Visit Provider Physician Assistant
DX: N30.01 Acute cystitis with hematuria (principal); N89.8 Other specified noninflammatory disorders of vagina; K59.00 Constipation, unspecified

== ENCOUNTER 2024-08-29 12:50 | Outpatient (REF) | payer BC, SELFPAY ==
[2024-08-29 18:27] LABS: Bacterial Vaginosis PCR NEGATIVE (Negative); Candida Group PCR NOT DETECTED (Not Detect); Candida glab krusei PCR NOT DETECTED (Not Detect); Trichomonas vaginalis PCR NOT DETECTED (Not Detect)
== END 2024-08-29 12:51 | disposition home or self-care (01) ==
LOC: HO.LAB 12:50
PROVIDERS: PCP Internal Medicine; Visit Provider Physician Assistant
DX: N89.8 Other specified noninflammatory disorders of vagina (principal); N30.01 Acute cystitis with hematuria; B95.1 Streptococcus, group B, as the cause of diseases classified elsewhere
CPT/HCPCS: 0352U; 87086; 87147

== ENCOUNTER 2024-09-12 12:32 | Outpatient (AMB) | payer BC, SELFPAY ==
--- NOTE | 2024-09-12 12:52 | MHC.OFFWIV ---
Intake Vital Signs 09/12/24 12:55 Weight 196 lb BP 130/84 Blood Pressure Location Rt brachial Position Sitting Pulse 83 Pulse Source Pulse Oximeter Pulse Oximetry (%) 97 Oxygen Delivery Method Room Air Intake Visit Reasons: EP-vaginal irritation Intake Note: Patient here for vaginal irritation that has been present since 08/29 and was put on cefuroxime and finished 5 days after which helped. Patient Tobacco Use Status: Never used Tobacco Allergies Peanut Butter Allergy (Severe, Verified 09/12/24 12:54) Anaphylaxis latex [Latex] Allergy (Intermediate, Verified 09/12/24 12:54) RASH shellfish derived Allergy (Unknown, Verified 09/12/24 12:54) Anaphylaxis Medication List - Last Reconciled 09/12/24 by Juan Carlos Lazar MD albuterol sulfate 90 mcg/actuation 2 puffs inhalation Q6H PRN aspirin 81 mg PO DAILY bupropion HCl XL 150 mg PO QAM 90 days Ca carb-D3-mag ll-eur-ukry-Zn 300 mg-20 mcg- 25 mg-0.5 mg (Caltrate-D3 Plus Minerals) 1 tab PO DAILY cholecalciferol (vitamin D3) 25 mcg PO DAILY hydrochlorothiazide 25 mg PO DAILY 90 days inhalational spacing device (InspiraChamber spacer) As directed lorazepam 0.5 mg PO TID PRN 90 days losartan 50 mg PO DAILY 90 days mecobalamin (vitamin B12) mcg PO ewwkzivp-zgb-ehud-FA-vit K-lut 8 mg iron-400 mcg-50 mcg (Multivitamin Women 50 Plus) 1 tab PO DAILY omeprazole 20 mg PO BID 90 days simethicone (Gas Relief (simethicone)) 125 mg PO TID PRN sucralfate (Carafate) 10 mL PO TID Ventolin HFA 90 mcg/actuation (albuterol sulfate) 2 puffs inhalation Q6H PRN 30 days NS HPI EP-vaginal irritation HPI Details Patient is 64-year-old female came in today with a chief complaint of vaginal irritation Patient says that when she urinate she feels burning sensation It has been happening since earlier this month Has been evaluated few days ago in our walk-in clinic She had vaginal swab taken which was negative Urine did not grew any urinary causing bacteria She was given cefuroxime prescription she came in today to have a refill Examination today she has slight erythema around genitalia I did not notice any discharge in the vagina Urine test shows no signs of infection Going over her labs I see that she does have impaired glucose However last hemoglobin A1c was 5.8% April of this year I am treating her with nystatin local vaginal cream Follow up with PCP [facility] Medical History 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 Dysphagia 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 extremities with pain Aphthous ulcer of mouth Obesity (BMI 30-39.9) Anxiety GERD without esophagitis Impaired fasting glucose Elevated LFTs Pure hypercholesterolemia Benign essential hypertension Surgical History H/O of anterior colporrhaphy (~07/04/23) History of esophagogastroduodenoscopy (EGD) History of colectomy History of partial hysterectomy History of foot surgery History of bladder surgery History of biopsy S/P bilateral salpingo-oophorectomy History of removal of cyst History of colonoscopy History of hemorrhoidectomy Family History Father Colon cancer Diabetes Mother Diabetes GERD (gastroesophageal reflux disease) Daughter Eating disorder Bipolar 1 disorder Social History Housing: House Alcohol intake: never Patient Tobacco Use Status: Never used Tobacco e-Cigarette/Vaping Use: Never Used Second Hand Smoke Exposure: Yes service: No Current occupational status: employed 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 Current occupational exposures/hazards: No Cognitive needs: No Hearing needs: No Vision needs: Yes (reading glasses) Female Reproductive History Menstrual Age of Menarche: 11 Review of Systems Const All systems reviewed & are unremarkable except as noted in HPI and below Physical Exam Vital Signs: Last Vital Signs Pulse 83 09/12/24 12:55 BP 130/84 09/12/24 12:55 Pulse Ox 97 09/12/24 12:55 Oxygen Delivery Method Room Air 09/12/24 12:55 Const General: no acute distress Orientation/consciousness: patient oriented x3 Eyes General: appearance normal, both eyes and all related structures Resp Effort & Inspection: normal respiratory effort and able to speak in complete sentences Other: Slight erythema around genitalia, no discharge noticed in the vagina Neuro General: patient oriented x3 Psych Mental Status: mental status grossly normal Assessment & Plan Assessment & Plan (1) Vaginal irritation: Code(s): N89.8 - Other specified noninflammatory disorders of vagina (2) Impaired fasting glucose: Code(s): R73.01 - Impaired fasting glucose Plan Patient is 64-year-old female came in today with a chief complaint of vaginal irritation Patient says that when she urinate she feels burning sensation It has been happening since earlier this month Has been evaluated few days ago in our walk-in clinic She had vaginal swab taken which was negative Urine did not grew any urinary causing bacteria She was given cefuroxime prescription she came in today to have a refill Examination today she has slight erythema around genitalia I did not notice any discharge in the vagina Urine test shows no signs of infection Going over her labs I see that she does have impaired glucose However last hemoglobin A1c was 5.8% April of this year I am treating her with nystatin local vaginal cream Follow up with PCP Medications: New nystatin 1 appl topical DAILY 30 days 30 grams 1RF Coding Level of Care Code Est Pt Level 3 (41543) Diagnoses Vaginal irritation N89.8 Impaired fasting glucose R73.01
[2024-09-12 12:55] VITALS: BP 130/84; PULSE 83; O2SAT 97
== END 2024-09-12 14:12 | disposition home or self-care (01) ==
PROVIDERS: PCP Internal Medicine; Visit Provider Internal Medicine
DX: N89.8 Other specified noninflammatory disorders of vagina (principal); R73.01 Impaired fasting glucose; Z13.9 Encounter for screening, unspecified

== ENCOUNTER 2024-09-12 12:32 | Outpatient (REF) | payer BC, SELFPAY | END 2024-09-12 12:33 | disposition home or self-care (01) | LOC: HO.LNP 12:32 | PROVIDERS: PCP Internal Medicine; Visit Provider Internal Medicine | DX: N30.01 Acute cystitis with hematuria (principal) | CPT/HCPCS: 81003; 87086 ==

== ENCOUNTER 2024-09-26 07:42 | Outpatient (REF) | payer BC, SELFPAY ==
[2024-09-26 08:01] LABS: MANUAL DIFF FLAG NO
[2024-09-26 08:24] LABS: Basophils Percent Auto 0.4 % (0-2); Eosinophils Absolute Auto 0.1 X10*3/uL (0.0-0.4); Hematocrit 38.7 % (37.0-47.0); Hemoglobin 12.6 g/dl (12.0-16.0); Imm Gran Abs Auto 0.01 X10*3/uL (0.00-0.03); Imm Gran Pct Auto 0.1 % (0.0-0.4); Lymphocytes Absolute Auto 2.3 X10*3/uL (1.2-4.9); Lymphocytes Percent Auto 32.3 % (20-40); Mean Corpuscular HGB Conc 32.6 g/dl (31.0-35.0); Mean Corpuscular Hemoglobin 27.1 pg (27.0-33.0); Mean Corpuscular Volume 83.2 fL (80.0-98.0); Mean Platelet Volume 9.8 fL (9.4-12.3); Monocytes Absolute Auto 0.5 X10*3/uL (0.1-1.2); Monocytes Percent Auto 6.7 % (2-11); Neutrophils Absolute Auto 4.2 x10*3/uL (2.0-8.3); Neutrophils Percent Auto 58.5 % (45-73); Platelet Count 265 X10*3/uL (160-400); Red Blood Count 4.65 X10*6/uL (4.20-5.50); Red Cell Distribution Width 13.7 % (11.0-16.0); White Blood Count 7.1 X10*3/uL (4.8-10.8)
[2024-09-26 08:27] LABS: Appearance Urine Clear; Color Urine Yellow; Glucose Urine UA Negative (Negative); Leukocyte Esterase Urine Small (1+) (Negative); Nitrite Urine Negative (Negative); UMIC TRIGGER UACC YES; Urine Blood Negative (Negative); Urine Ketones Negative (Negative); Urine Protein Negative (Neg-Trace)
[2024-09-26 08:29] LABS: Estimated Average Glucose 126 mg/dL; Hemoglobin A1C 133.1213 umol/L; Total Hemoglobin (HGBA1C) 3194.1255 umol/L
[2024-09-26 08:46] LABS: Alanine Aminotransferase 30 U/L (0-31); Albumin Level 4.1 g/dL (3.5-5.0); Alkaline Phosphatase 82 U/L (39-117); Anion Gap 13 (12-20); Aspartate Amino Transferase 30 U/L (5-31); Bilirubin Total 0.5 mg/dL (0.0-1.0); Blood Urea Nitrogen 14 mg/dL (9-16); Calcium 9.6 mg/dL (8.4-10.2); Carbon Dioxide 29 mmol/L (22-29); Chloride 103 mmol/L (96-108); Cholesterol 185 mg/dL (<200); Estimated Glomerular Filt Rate > 60; Glucose Fasting 112 mg/dL (60-99); HDL Cholesterol 57 mg/dL (>40); LDL Cholesterol Calculated 106 mg/dL (<100); Sodium 141 mmol/L (135-145); Total Protein 7.5 g/dL (6.5-8.0); Triglycerides 114 mg/dL (<150)
[2024-09-26 08:47] LABS: Bacteria Urine None Seen (None Seen); Hyaline Casts Urine 0-2 /LPF (0-2); RBC Urine 0-2 /HPF (0-2); UACC Culture Trigger YES; WBC Urine 0-5 /HPF (0-5)
[2024-09-26 09:03] LABS: TSH reflex Free T4 1.77 uIU/mL (0.32-4.0); Vitamin D 25-OH Total 43.4 ng/mL (>30)
--- OUTSIDE RECORDS SUMMARY | 2024-10-02 16:19 | XMS_ITS | Continuity of Care Document ---
Author Organization [facility] Address [address] [place] [address], [place] [address]- Support Name Relationship Address Phone LARSUKHDEEPE, PALLAIV spouse Unknown Unavailable LARIVIERE, PALLAVI Personal Relationship Unknown Unav ailable LARIVIERE, PALLAVI Personal Relationship Unknown Unav ailable LARIVIERE, PALLAVI Personal Relationship Unknown Unav ailable LARIVIERE, PALLAVI spouse Unknown Unavailable LARIVIERE, PALLAVI Personal Relationship Unknown Unav ailable LARIVIERE, PALLAVI Personal Relationship Unknown Unav ailable LARIVIERE, PALLAVI Personal Relationship Unknown Unav ailable LARIVIERE, PALLAVI Personal Relationship Unknown Unav ailable LARIVIERE, PALLAVI spouse Unknown Unavailable LARIVIERE, PALLAVI spouse Unknown Unavailable LARIVIERE, PALLAVI Personal Relationship Unknown Unav ailable LARIVIERE, SUNITHA child Unknown Unavailab le LARIVIERE, PALLAVI spouse Unknown Unavailable LARIVIERE, PALLAVI Personal Relationship Unknown Unav ailable LARIVIERE, PALLAVI Personal Relationship Unknown Unav ailable LARIVIERE, PALLAVI Personal Relationship Unknown Unav ailable LARIVIERE, PALLAVI Personal Relationship Unknown Unav ailable LARIVIERE, PALLAVI spouse Unknown Unavailable LARIVIERE, PALLAVI spouse Unknown Unavailable LARIVIERE, PALLAVI spouse Unknown Unavailable LARIVIERE, PALLAVI Personal Relationship Unknown Unav ailable LARIVIERE, PALLAVI Personal Relationship Unknown Unav ailable LARIVIERE, PALLAVI spouse Unknown Unavailable LARIVIERE, PALLAVI Personal Relationship Unknown Unav ailable LARIVIERE, PALLAVI Personal Relationship Unknown Unav ailable LARIVIERE, PALLAVI Personal Relationship Unknown Unav ailable LARIVIERE, PALLAVI Personal Relationship Unknown Unav ailable LARIVIERE, PALLAVI spouse Unknown Unavailable 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 Role Phone Sandip Ricardo MD Primary Care Physician [phone] [place] [facility] [place]): 09/07/24 - 09/14/24 [facility] [address] [place], [place] [address] Attending Physician: Tita Gonzalez MD Referring Physician: Not on Staff, Referring MD Encounter Type: Office Visit Allergies, Adverse Reactions, Alerts Substance Criticality Severity Reaction Reaction Severity Status Latex rash Active Other Environmental Allergy 1 Active Cats stuffy Active Mildew Active Mold sneezing/sinus congestion Active Peanuts throat itchy Active Seafood shellfish-red face/throat swelling anaphylaxis Active 1trees and soil Medications acetaminophen 325 mg oral tablet 325 mg, 1, tablet, By Mouth, Every 4 hours, PRN, # 50 tablet, Refills 0, Tot. Refills 0, Maintenance, as needed for fever, 07/04/23 2:58:00 PM EDT, Route to Pharmacy Electronically, [facility]/pharmacy #[id number], Partial fill upon patient request if the prescription is for a schedule II opioid drug., 168, cm, 07/04/23 12:34:00 EDT, Height, 82.8, kg, 07/04/23 12:34:00 EDT, Dry Weight Start Date: 07/04/23 Status: Ordered Quantity: 50.0 Unit: tablet Repeat number: 1 Albuterol (Eqv-ProAir HFA) 2 puffs, Inhalation, Every 6 hours, PRN Anaphylactic Reaction, unsure why she has this, maybe related to allergic reactions, 0 Refills, Maintenance, 06/30/23 11:36:00 AM EDT, Partial fill upon patient request if the prescription is for a schedule II opioid drug. Start Date: 06/30/23 Status: Ordered Repeat number: 1 aspirin 81 mg oral tablet 1 tablet = 81 mg, By Mouth, Daily, 0 Refills, Maintenance, 04/12/18 11:43:52 AM EDT Start Date: 04/12/18 Status: Ordered Repeat number: 1 buPROPion 150 mg/12 hours (SR) oral tablet, extended release 1 tablet = 150 mg, By Mouth, 2 times a day, 0 Refills, Maintenance, 06/30/23 11:14:00 AM EDT, Partialfill upon patient request if the prescription is for a schedule II opioid drug. Start Date: 06/30/23 Status: Ordered Repeat number: 1 Cranberry 0 Refills, Maintenance, 09/07/24 3:42:00 PM EST, Partial fill upon patient request if the prescription is for a schedule II opioid drug. Start Date: 09/07/24 Status: Ordered Repeat number: 1 estradiol 0.1 mg/g vaginal cream = 1 Gm, Vaginally, Every Tuesday and , # 42.5 Gm, 5 Refills, Maintenance, 09/07/24 4:14:00 PM EST, [facility], Partial fill upon patient request if the prescription is for a schedule II opioid drug., 168, cm, 09/07/24 15:44:00 EST, Height, 85.3, kg, 07/20/23 12:02:00 EDT, Dry Weight Start Date: 09/07/24 Status: Ordered Quantity: 42.5 Unit: g Repeat number: 6 hydrochlorothiazide 25 mg oral tablet 25 mg, 1, tablet, By Mouth, Daily, Refills 0, Maintenance, 04/12/18 11:42:54 AM EDT Start Date: 04/12/18 Status: Ordered Repeat number: 1 ibuprofen 600 mg oral tablet See Instructions, TAKE 1 TABLET BY MOUTH FOUR TIMES A DAY NEEDED FOR PAIN, # 50 tablet, Refills 0, Maintenance, 03/14/24 1:42:00 PM EDT, Instructions Replace Required Details, Route to Pharmacy Electronically, [id number], 168, cm, 07/04/23 12:34:00 EDT, Height, 85.3, kg, 07/20/23 12:02:00 EDT, Dry Weight Start Date: 03/14/24 Status: Ordered Quantity: 50.0 Unit: tablet Repeat number: 1 LORazepam 0.5 mg oral tablet 1 tablet = 0.5 mg, By Mouth, Daily, PRN as needed for anxiety, 0 Refills, Maintenance, 04/12/18 11:51:21 AM EDT Start Date: 04/12/18 Status: Ordered Repeat number: 1 losartan 50 mg oral tablet 50 mg, 1, tablet, By Mouth, Daily, # 30 tablet, Refills 0, Maintenance, 06/30/23 11:14:00 AM EDT, Partial fill upon patient request if the prescription is for a schedule II opioid drug. Start Date: 06/30/23 Status: Ordered Quantity: 30.0 Unit: tablet Repeat number: 1 MiraLax oral powder for reconstitution = 17 Gm, By Mouth, Daily, dissolve in water before taking, # 255 Gm, 0 Refills, Maintenance, 07/04/23 2:58:00 PM EDT, REC Powder, [facility]/pharmacy #[id number], Partial fill upon patient request if the prescription is for a schedule II opioid drug., 17 Gm By Mouth Daily,Instr:dissolve in water before taking, 168, cm, 07/04/23 12:34:00 EDT, Height, 82.8, kg, 07/04/23 12:34:00 EDT, Dry Weight Start Date: 07/04/23 Status: Ordered Quantity: 255.0 Unit: g Repeat number: 1 Misc Rx See Instructions, Refills 0, Maintenance, Gingko, 06/30/23 11:38:00 AM EDT, Supply Start Date: 06/30/23 Status: Ordered Repeat number: 1 Multivitamin By Mouth, Daily, 0 Refills, Maintenance, 04/12/18 11:47:59 AM EDT Start Date: 04/12/18 Status: Ordered Repeat number: 1 omeprazole 20 mg oral delayed release tablet 1 tablet = 20 mg, By Mouth, 2 times a day, 0 Refills, Maintenance, 04/12/18 11:43:42 AM EDT Start Date: 04/12/18 Status: Ordered Repeat number: 1 oxyCODONE 5 mg oral tablet 5 mg, 1, tablet, By Mouth, Every 6 hours, PRN, # 12 tablet, Refills 0, Tot. Refills 0, Maintenance,as needed for pain, 07/04/23 2:58:00 PM EDT, Route to Pharmacy Electronically, [facility]/pharmacy #[id number], Partial fill upon patient request if the prescription is for a schedule II opioid drug., 168, cm, 07/04/23 12:34:00 EDT, Height, 82.8, kg, 07/04/23 12:34:00 EDT, Dry Weight Start Date: 07/04/23 Status: Ordered Quantity: 12.0 Unit: tablet Repeat number: 1 Senna 8.6 mg oral tablet 17.2 mg, 2, tablet, By Mouth, Daily at bedtime, # 50 tablet, Refills 0, Tot. Refills 0, Maintenance, 07/04/23 2:58:00 PM EDT, Route to Pharmacy Electronically, [facility]/pharmacy #[id number], Partial fill upon patient request if the prescription is for a schedule II opioid drug., 168, cm, 07/04/23 12:34:00 EDT, Height, 82.8, kg, 07/04/23 12:34:00 EDT, Dry Weight Start Date: 07/04/23 Status: Ordered Quantity: 50.0 Unit: tablet Repeat number: 1 Vitamin D3 1000 intl units oral tablet 1 tablet = 25 mcg, By Mouth, Daily, # 30 tablet, 0 Refills, Maintenance, 06/30/23 11:14:00 AM EDT, Tablet, Partial fill upon patient request if the prescription is for a schedule II opioid drug. Start Date: 06/30/23 Status: Ordered Quantity: 30.0 Unit: tablet Repeat number: 1 Problem List Condition Confirmation Course Effective Dates Status Health St atus Informant Obese class I Confirmed Active Vital Signs Most recent to oldest [Reference Range]: 1 Height 168 cm (09/07/24 3:44 PM) Weight 89.4 kg (09/07/24 3:44 PM) Pulse Rate [55-90 bpm] 88 bpm (09/07/24 3:44 PM) Body Mass Index [18.5-24.99 kg/m2] 31.68 kg/m2 *>HHI* (09/07/24 3:44 PM) Blood Pressure [90-138/55-84 mm Hg] 177/ 81mm Hg *H* (09/07/24 3:44 PM) Blood pressure sites Arm, left (09/07/24 3:44 PM) Weight Obtained Via Bed scale (09/07/24 3:44 PM) Social History Social History Type Response Smoking Status Never (less than 100 in lifetime) entered on: 03/16/23 Sex Sex Representation Female (finding) Implantable Device List Procedure Provider Procedure Date Device Type Site Transvaginal Tape Tita Stephens MD 07/04/23 Unkn own Vagina Device Identifier Serial Number Lot or Batch Number Manufacturing Date Expiration Date Distinct Identification Code MRI Safety Implantable Status Assigning Authority Unknown Unknown [id number] Unknown 04/16/26 Unknown Unknown Active Unknown Note * Mary Carbajal: PERFORM Event Display: Patient Education/Instruction Authored Date: [id number] Ambulatory Adult Visit Summary [facility] [address] [place] [address] Name: MELISSA LÓPEZ : 1960?? Visit: 09/07/2024 15:36?? Ambulatory Visit Instructions ?? Your Care Team Primary Care Provider Davion LEDESMA, Sandip Urban? This Visit Provider Carlos LEDESMA, Tita Crowder Vitals Signs Pulse Rate: 88 bpm Height: 168 cm Systolic Blood Pressure:??177 mm Hg??High Weight: 89.4 kg Diastolic Blood Pressure: 81 mm Hg Body Mass Index:??31.68 kg/m2??Critical ?? Body surface area: 2.04 Medications The list below reflects the information in our records and provided by you today along with any changes made during this visit. Please continue your medications until treatment is completed or stopped by your provider. If this is different from the information you have or there are other questions,please contact the prescribing provider. What How Much When Instructions New Estradiol Topical (estradiol 0.1 mg/ g vaginal cream) 1 gram Vaginally Every Tuesday and Refills: 5 Pickup at [facility] Unchanged Acetaminophen (acetaminophen 325 mg oral tablet) 1 tab(s) Oral Every 4 hours as needed for as needed for fever Unchanged Albuterol (Albuterol (Eqv-ProAir HFA)) 2 puff(s) Inhalation Every 6 hours as needed for Anaphylactic Reaction unsure why she has this, maybe related to allergic reactions ?? Unchanged Aspirin (aspirin 81 mg oral tablet) 1 tab(s) Oral Daily Unchanged BuPROpion (buPROPion 150 mg/ 12 hours (SR) oral tablet, extended release) 1 tab(s) Oral Twice a day Unchanged Cholecalciferol (Vitamin D3 1000 intl units oral tablet) 1 tab(s) Oral Daily Unchanged Cranberry Unchanged Hydrochlorothiazide (hydrochlorothiazide 25 mg oral tablet) 1 tab(s) Oral Daily Unchanged Ibuprofen (ibuprofen 600 mg oral tablet) See instructions TAKE 1 TABLET BY MOUTH FOUR TIMES A DAY NEEDED FOR PAIN ?? Unchanged Lorazepam (LORazepam 0.5 mg oral tablet) 1 tab(s) Oral Daily as needed for as needed for anxiety Unchanged Losartan (losartan 50 mg oral tablet) 1 tab(s) Oral Daily Unchanged Miscellaneous Rx (Misc Rx) See instructions Gingko ?? Unchanged Multivitamin Oral Daily Unchanged Omeprazole (omeprazole 20 mg oral delayed release tablet) 1 tab(s) Oral Twice a day Unchanged Oxycodone (oxyCODONE 5 mg oral tablet) 1 tab(s) Oral Every 6 hours as needed for as needed for pain Unchanged Polyethylene Glycol 3350 (MiraLax oral powder for reconstitution) 17 gram Oral Daily dissolve in water before taking ?? Unchanged Senna (Senna 8.6 mg oral tablet) 2 tab(s) Oral Daily at Bedtime Pharmacy Information [facility]: [address] [facility] [address] [place], [place] [id number] [phone] Medications and Immunizations Administered Medications Given During Visit No medications given during this visit.?? Allergies (NKA means No Known Allergies) Cats??(stuffy) Latex??(rash) Mildew Mold??(sneezing/sinus congestion) Other Environmental Allergy Peanuts??(throat itchy) Seafood??(shellfish-red face/throat swelling, anaphylaxis) Common Emergency Awareness Tips IS IT A STROKE? Act FAST and Check for these signs: FACE Does the face look uneven? ARM Does one arm drift down? SPEECH Does their speech sound strange? TIME Call at any sign of stroke ?? Heart Attack Signs Chest discomfort: Most heart attacks involve discomfort in the center of the chest and lasts more than a few minutes, or goes away and comes back. It can feel like uncomfortable pressure, squeezing, fullness or pain. Discomfort in upper body: Symptoms can include pain or discomfort in one or both arms, back, neck, jaw or stomach. Shortness of breath: With or without discomfort. Other signs: Breaking out in a cold sweat, nausea, or lightheaded. Remember, MINUTES DO MATTER. If you experience any of these heart attack warning signs, call to get immediate medical attention! ?? Smoking can increase your chances of developing chronic health problems and can cause harmful effects to other family members in your house. If you smoke, you are strongly encouraged to quit. Please call [facility] at [phone] or [phone] ([phone]) or log in to [email or web address] for referrals to smoking cessation programs. ?? The National Suicide Prevention Hotline is available 16/05 if you or someone you know needs to find a reason to keep living. By calling 3-863-216-[employer] (3724) you'll be connected to a skilled, trained counselor at a crisis center in your area. [facility] [employer] Portal You can view and manage your care through the patient portal or by using a health care dileep of your choosing. [employer] is a website that allows you to securely view your medical information including your hospital discharge summary, office visit summaries, medications and follow-up visits. You can also request appointments, renew medications, and request access to your medical information using a health care dileep of your choosing, or just ask a question. You can enroll at [email or web address] or register during your next office visit. [facility], in keeping with [facility] guidance, no longer requires face masks for staff, patientsor visitors in most situations. Similiar to time spent indoors at other locations, there is the chance that you were exposed to repiratory viruses during your time with us (such as flu or COVID-19). If you develop symptoms concerning for a viral respiratory infection, please seek testing (and treatment if indicated) from your medical provider or home test kit. ?? Disclaimer: The information provided is of a general nature and is intended to be used in conjunction with the recommendations and advice of your health care practitioner. Every effort has been made to ensure that the information provided is accurate and complete at the time it is provided to you however, as your needs change, or, as new information becomes available, different or additional instructions may be required. ?? If you have questions, please consult with your primary care provider or pharmacist, as appropriate. This information is not intended to serve as substitution for assessment and evaluation by a qualified health care provider. If you do not have a primary care provider, you may find a [facility] [employer] provider by calling [facility] at [phone]. Patient Care team information Care Team Personnel Name: Sandip Ricardo MD Position: Reference Physician Member Role: PCP [address]: [address] [place] [address] [place] [address]- [place] [employer]: Care Team Related Persons Name: PALLAVI LÓPEZ Name: SUNITHA LÓPEZ Insurance Providers Guarantor name: [employer] Health Plan Information #: 1 Payer: [employer] Member Number: [id number] Policy Number: NA Group Number: [id number] Health Plan Information #: 2 Payer: [employer] Member Number: [id number] Policy Number: NA Group Number: NA
--- OUTSIDE RECORDS SUMMARY | 2024-10-02 16:19 | XMS_ITS | Continuity of Care Document ---
Author Organization [facility] Address [address] [place] [id number] Phone Care Team Providers Care Oral Health Therapist Name Role Phone Venkata LEDESMA, RVT, RPVI, Willie Unavailable U navailable Allergies, Adverse Reactions, Alerts Substance Reaction Status Criticality shellfish derived Active No Informa tion Medications Medication Instructions Dosage Effective Dates (start - stop) Status Comments aspirin 81 mg tablet,delayed release - Active BUPROPION HCL (unknown strength) Not Available - Active HYDROCHLOROTHIAZIDE (unknown strength) Not Available - Active LORAZEPAM (unknown strength) Not Available - Active LOSARTAN POTASSIUM (unknown strength) Not Available - Active OMEPRAZOLE (unknown strength) Not Available - Active VITAMIN D3 (unknown strength) Not Available - Active Procedures Procedure Date No Charge For Services No Charge For Services Sngl/mx Inj Scleros-veins; Reich Sngl/mx Inj Scleros-veins; Reich Office/Outpt E&M Established 15 Mins- CT & [place] Duplex Scan-extrem Veins; Comp- [place] & [place] Duplex Scan-extrem Veins; Uni/ CT & [place] A Inj Scleros Solut; Mx Veins 1- CT & [place] A Ultrason Guidan Needle Bx-rad- CT & [place] A Duplex Scan-extrem Veins; Uni/ CT & [place] A Endovenous Laser, 1st Vein- CT & [place] Ultrason Guidan Needle Bx-rad- CT & [place] A Inj Sclerosing Solution; Sngl- CT & [place] A Duplex Scan-extrem Veins; Uni/ CT & [place] A Inj Scleros Solut; Mx Veins 1- CT & [place] A Ultrason Guidan Needle Bx-rad- CT & [place] A Duplex Scan-extrem Veins; Uni/ CT & [place] A Endovenous Laser, 1st Vein- CT & [place] Endovenous Laser, 1st Vein- CT & [place] Endovenous laser vein addon- CT & [place] Jan Inj Scleros Solut; Mx Veins 1- CT & [place] A Ultrason Guidan Needle Bx-rad- CT & [place] A Surgical Stockings CVR Reveal Thigh High 20-30 11-20 Min Medical Discussion On Phone Office/Oupt E&M New Pt 45 Mins Surgical Stockings CVR Reveal Thigh High 20-30 Duplex Scan-extrem Veins; Comp 24 Advance Directives Directive Yes / No Effective Date File Name Other Directive No N/A N/A WARNING:The information contained in this section is historical and is provided for information only and does not constitute a legal document or any assurance that the information is still accurate. Please verify the information with the perkins of the legal document before using it for clinical purposes. Encounters Encounter Description Practice Location Reason(s) For Visit Diagnoses Date Provider Providers Copied on Encounter [facility], [address], [place], [id number], [place] tel:[phone] CV[place] - [place] - [place] Nevus, non-neoplastic 4 Venkata LEDESMA, JUSTINT, PACO Tapia. [address], [address], [place], [id number], [place]. tel:[phone] Referring Provider: Sandip Ricardo MD, [address], [place], [address]. tel:[phone] [facility], [address] [place] [address] Dr [address]Tom [place], [id number], [place] tel:[phone] [place] - [place] Nevus, non-neoplastic 4 [facility] EARLE Miller. [address] [facility] [address], [address], [place], [place], [id number], [place]. tel:[phone] Referring Provider: Sandip Ricardo MD, [address], [place], [address]. tel:[phone] [facility], [address] [place] [address] [address]Tom [place], [id number], [place] tel:[phone] [place] Nevus, non-neoplastic 4 Venkata LEDESMA, RVT, RPVI Willie. [address] [facility] [address] [facility] [address], [address], [place], [place], [id number], [place]. tel:[phone] Referring Provider: Sandip Ricardo MD, [address], [place], [address]. tel:[phone] [facility], [address] [place] [address] [address]Tom [place], [id number], [place] tel:[phone] [place] Nevus, non-neoplastic 4 [facility] EARLE Miller. [address] [facility] [address], [address], [place], [place], [id number], [place]. tel:[phone] Referring Provider: Sandip Ricardo MD, [address], [place], [address]. tel:[phone] Office/Outpt E&M Established 15 Mins- CT & [place] [facility], [address] [place] [address] [address] [place], [id number], [place] tel:[phone] CVR - [place] - [place] Lymphedema, not elsewhere classifiedHere ditary lymphedemaEsse ntial (primary) hypertensionPr uritus, unspecifiedLoc alized edemaVenous insufficiency (chronic) (peripheral) 4 Venkata LEDESMA RVT, PACO Tapia. [address] [facility], [address], [place], [place], [id number], [place]. tel:[phone] Referring Provider: Sandip Ricardo MD, [address] [place] [address] [address], [place], [address]. tel:[phone] [facility], [address] [place] [address] [address]Tom [place], [id number], [place] tel:[phone] CVR - [place] - [place] Encounter for follow-up examination after completed treatment for conditions other than malignant neChronic venous hypertension (idiopathic) with other complications of bilateral lower extremity 4 Venkata LEDESMA RVT, PACO Tapia. [address] [facility] [address], [address], [place], [place], [id number], [place]. tel:[phone] Referring Provider: Sandip Ricardo MD, [address] [place] [address] [address], [place], [address]. tel:[phone] [facility], [address] [place] [address] [address] [place], [id number], [place] tel:[phone] CVR - [facility] Encounter for follow-up examination after completed treatment for conditions other than malignant neVaricose veins of right lower extremity with pain 4 Venkata LEDESMA RVT, PACO Tapia. [address] [facility] [address] [facility] [address], [address], [place], [place], [id number], [place]. tel:[phone] Referring Provider: Sandip Ricardo MD, [address] [place] [address] [address], [place], [address]. tel:[phone] [facility], [address] [place] [address] [address]Tom [place], [id number], [place] tel:[phone] CVR - [facility] Chronic venous hypertension (idiopathic) with inflammation of right lower extremity Jan- 4 Tunde EARLE Angela. [address], [address], [facility] [place], [id number], [place]. tel:[phone] Referring Provider: Sandip Ricardo MD, [address] [place] [address] Dr [address], [place], [address]. tel:[phone] [facility], [address] [place] [address] [address]Suite [place] Cooper [place], [id number], [place] tel:[phone] CVR - [facility] Encounter for follow-up examination after completed treatment for conditions other than malignant neChronic venous hypertension (idiopathic) with other complications of left lower extremity Jan- 4 Venkata LEDESMA RVT, PACO Tapia. [facility] [facility], Suite [facility], [facility] [place] [place], [id number], [place]. tel:[phone] Referring Provider: Sandip Ricardo MD, [address] [place] [address] Dr [address], [place], [address]. tel:[phone] [facility], [address] [place] [address] [address] [place] Cooper [place], [id number], [place] tel:[phone] [facility] Chronic venous hypertension (idiopathic) with inflammation of right lower extremity Apr- 4 Venkata LEDESMA RVT, RPVI Robert. [address] [place] [address], [place] [address], [facility] [place], [id number], [place]. tel:[phone] Referring Provider: Sandip Ricardo MD, [address] [place] [address] Dr [address], [place], [address]. tel:[phone] [place] [facility], [address] [place] [address] [address] Tom Cooper [place], [id number], [place] tel:[phone] CVR - [facility] Encounter for follow-up examination after completed treatment for conditions other than malignant ne Jan- 4 Venkata LEDESMA RVT, RPVI Robert. [facility] [facility], [address], [facility] [place], [id number], [place]. tel:[phone] Referring Provider: Sandip Ricardo MD, [address], [place], [address]. tel:[phone] [facility], [address] [place] [address] [address]SuTom brady [place], [id number], [place] tel:[phone] CVR - [place] [facility] [place] [address] Chronic venous hypertension (idiopathic) with inflammation of left lower extremity Apr-0 4 Tunde Miller. [address] [facility], Suite [facility], [place], [place], [id number], [place]. tel:[phone] Referring Provider: Sandip Ricardo MD, [address] [place] [address] Dr Suite [facility], [place], [address]. tel:[phone] [facility], [address] [place] [address] [address]Suite [place] Cooper [place], [id number], [place] tel:[phone] CVR - [facility] Chronic venous hypertension (idiopathic) with other complications of left lower extremity Apr-0 4 Venkata LEDESMA, HARITHA, PACO Tapia. [facility] [facility], [place] [address], [place], [place], [id number], [place]. tel:[phone] Referring Provider: Sandip Ricardo MD, [address] [place] [address] Dr [address], [place], [address]. tel:[phone] [facility], [address] [place] [address] [address] [place] Cooper [place], [id number], [place] tel:[phone] CVR - [facility] Chronic venous hypertension (idiopathic) with inflammation of left lower extremity Apr-0 4 Venkata LEDESMA RVT, PACO Tapia. [address] [place] [address], [place] [address], [place], [place], [id number], [place]. tel:[phone] Referring Provider: Sandip Ricardo MD, [address], [place], [address]. tel:[phone] [facility], [address] [place] [address] [address] Tom Cooper [place], [id number], [place] tel:[phone] CV[place] - [place] Varicose veins of left lower extremity with other complications Apr-0 4 Venkata LEDESMA, RVT, PACO Tapia. [address] [place] [address], [place], [place], [id number], [place]. tel:[phone] Referring Provider: Sandip Ricardo MD, [address], [place], [address]. tel:[phone] [place] [facility], [address] [place] [address] [address] Tom Cooper [place], [id number], [place] tel:[phone] CV[place] - [place] Venous insufficiency (chronic) (peripheral) 4 Petros LEDESMA FACS RVT PACO Bender. [address] [place] [address], [place], [address], [place]. tel:[phone] 11-20 Min Medical Discussion On Phone [place] [facility], [address] [place] [address] [address] Tom Cooper [place], [id number], [place] tel:[phone] CV[place] - [place] Varicose veins of right lower extremity with inflammationVa ricose veins of left lower extremity with inflammationLo calized edemaCramp and spasmEssential (primary) hypertensionPr uritus, unspecifiedDis order of pigmentation, unspecified 4 Jannette Prakash. [address] [place] [address], [place], [place], [id number], [place]. tel:[phone] Referring Provider: Sandip Ricardo MD, [address], [place], [address]. tel:[phone] Office/Oupt E&M New Pt 45 Mins [place] [facility], [address] [place] [address] [address] 1000Tom [place], [id number], [place] tel:[phone] CVR - [place] Varicose veins of bilateral lower extremities with other complicationsV aricose veins of right lower extremity with inflammationVa ricose veins of left lower extremity with inflammationPa in in right lower legEssential (primary) hypertensionPr uritus, unspecifiedDis order of pigmentation, unspecifiedPai n in right legPain in left legPain in left lower legCramp and spasmLocalized edema 4 Venkata LEDESMA RVT, PACO Tapia. [address] [facility], [facility] [address], [facility] [place] [place], [id number], [place]. tel:[phone] Referring Provider: Sandip Ricardo MD, [address] [place] [address] Dr [address], [place], [address]. tel:[phone] [facility], [address], [place], [id number], [place] tel:[phone] [facility] Chronic venous hypertension (idiopathic) with other complications of bilateral lower extremity 4 Venkata LEDESMA, HARITHA, PACO Tapia. [address] [facility], [place] [address], [facility] [place] [place], [id number], [place]. tel:[phone] Referring Provider: Sandip Ricardo MD, [address] [place] [address] Dr [address], [place], [address]. tel:[phone] Family History Family Member Type Diagnosis Age At Onset No Information Payers Payer name Insurance type Covered republican ID Authoriza tion(s) No Information Social History Type Description Quantity Date Captured Comments Alcohol Use Details Unknown Caffeine Use Details Unknown Tobacco Use Status Never smoked tobacco 2023 Smoking Status Never smoker Non-Smoking Tobacco Use Details : No Details Available : No Details Available Sex Female Chief Complaint And Reason For Visit No Information Reason For Referral Reason For Referral No Information Plan Of Treatment Date Type Action Status Goal Tobacco cessation counseling completed Goal Tobacco cessation counseling completed Goal Tobacco cessation counseling completed Goal Diet education completed Goal Diet education completed Referral Ordered: Weight management: Referral to physician timeframe: 3 Months (related to Body mass index (BMI) 29.0-29.9, adult) ordered Referral Ordered: Weight management: Referral to physician timeframe: 3 Months (related to Body mass index (BMI) 29.0-29.9, adult) ordered History Of Present Illness Encounter Date Complaint History Of Prese nt Illness No Information Functional Status Date Functional Assessmen t No Information Instructions Date Instruction Additional Infor mation Giving Encouragement to exercise Related to Body mass index (BMI) 29.0-29.9, adult Compression stocking usage as conservative measure Related to Localized edema Patient education booklet given Related to Localized edema Diet education Related to Body mass index (BMI) 29.0-29.9, adult Lifestyle education Related to B john mass index (BMI) 29.0-29.9, adult Patient education booklet given Related to Varicose veins of right lower extremity with inflammation Pre and post instruc tions reviewed and provided Related to Varicose veins of bilateral lower extremities with other complications Diet education Related to Body mass index (BMI) 29.0-29.9, adult Giving Encouragement to exercise Related to Body mass index (BMI) 29.0-29.9, adult Lifestyle education Related to B john mass index (BMI) 29.0-29.9, adult Patient education booklet given Related to Varicose veins of bilateral lower extremities with other complications Assessments Type Assessment Date assessment Nevus, non-neoplastic 4 Patient Care Teams Name Effective Dates (start - stop) Status Members No Information
== END 2024-09-26 07:43 | disposition home or self-care (01) ==
LOC: HO.LAB 07:42
PROVIDERS: PCP Internal Medicine; Visit Provider Internal Medicine
DX: R30.0 Dysuria (principal); D64.9 Anemia, unspecified; E78.00 Pure hypercholesterolemia, unspecified; R73.01 Impaired fasting glucose; E55.9 Vitamin D deficiency, unspecified
CPT/HCPCS: 36415; 80053; 80061; 81001; 82306; 83036; 84443; 85025; 87086

== ENCOUNTER 2024-10-03 12:26 | Outpatient (AMB) | payer BC, SELFPAY ==
[2024-10-03 12:32] VITALS: BP 136/82; PULSE 80; O2SAT 97; BMI 31.7
--- NOTE | 2024-10-03 12:32 | A.OFFPC_ITS ---
Vital Signs 10/03/24 12:32 Height 5 ft 6 in Weight 196 lb 4 oz BMI 31.7 BP 136/82 Blood Pressure Location Lt brachial Position Sitting Pulse 80 Pulse Source Pulse Oximeter Pulse Oximetry (%) 97 Oxygen Delivery Method Room Air Intake Visit Reasons: 4 Month F/U Manager Federal Required: No Accompanied by: Self / Same As Patient Allergies Peanut Butter Allergy (Severe, Verified 10/03/24 12:54) Anaphylaxis latex [Latex] Allergy (Intermediate, Verified 10/03/24 12:54) RASH shellfish derived Allergy (Unknown, Verified 10/03/24 12:54) Anaphylaxis Medication List - Last Reconciled 10/03/24 by Sandip Ricardo MD albuterol sulfate 90 mcg/actuation 2 puffs inhalation Q6H PRN aspirin 81 mg PO DAILY bupropion HCl XL 150 mg PO QAM 90 days Ca carb-D3-mag bo-nuw-vwvt-Zn 300 mg-20 mcg- 25 mg-0.5 mg (Caltrate-D3 Plus Minerals) 1 tab PO DAILY cholecalciferol (vitamin D3) 25 mcg PO DAILY estradiol 0.01%(0.1mg/gram) vaginal hydrochlorothiazide 25 mg PO DAILY 90 days inhalational spacing device (InspiraChamber spacer) As directed lorazepam 0.5 mg PO TID PRN 90 days losartan 50 mg PO DAILY 90 days mecobalamin (vitamin B12) mcg PO adlulfvh-vdv-rklu-FA-vit K-lut 8 mg iron-400 mcg-50 mcg (Multivitamin Women 50 Plus) 1 tab PO DAILY nystatin 1 appl topical DAILY 30 days omeprazole 20 mg PO BID 90 days simethicone (Gas Relief (simethicone)) 125 mg PO TID PRN sucralfate (Carafate) 10 mL PO TID Ventolin HFA 90 mcg/actuation (albuterol sulfate) 2 puffs inhalation Q6H PRN 30 days NS Tobacco use date assessed: 10/03/24 Fall risk assessment: No Falls in past year Last assessed Fall Risk: 10/03/24 Dental Screening Dental Screen Date: 10/03/24 Did you have a dental visit in the last 12 months?: Yes Did you have a dental problem in the last 6 months where you did not have access to dental care?: No Was dental information given to patient?: Patient has dentist HPI 4 Month F/U HPI Details Patient comes in today for her follow up visit States that she feels okay She denies any headaches or dizziness Denies any chest pains, no increased SOB No nausea/vomiting, no abdominal pain No change in bowel habits noted She had her follow up labs done last week - to discuss her results [facility] Medical History (Updated 10/07/24 @ 14:30 by Sandip Ricardo MD) Osteoarthritis of right shoulder 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 Dysphagia 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 extremities with pain Aphthous ulcer of mouth Obesity (BMI 30-39.9) Anxiety GERD without esophagitis Impaired fasting glucose Elevated LFTs Pure hypercholesterolemia Benign essential hypertension Surgical History H/O of anterior colporrhaphy (~07/04/23) History of esophagogastroduodenoscopy (EGD) History of colectomy History of partial hysterectomy History of foot surgery History of bladder surgery History of biopsy S/P bilateral salpingo-oophorectomy History of removal of cyst History of colonoscopy History of hemorrhoidectomy Family History Father Colon cancer Diabetes Mother Diabetes GERD (gastroesophageal reflux disease) Daughter Eating disorder Bipolar 1 disorder Social History Housing: House Alcohol intake: never Patient Tobacco Use Status: Never used Tobacco e-Cigarette/Vaping Use: Never Used Second Hand Smoke Exposure: Yes service: No Current occupational status: employed 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 1. Little interest or pleasure in doing things: not at all 2. Feeling down, depressed, or hopeless: not at all 3. Trouble falling or staying asleep, or sleeping too much: not at all 4. Feeling tired or having little energy: not at all 5. Poor appetite or overeating: not at all 6. Feeling bad about yourself - or that you are a failure or have let yourself or your family down: not at all 7. Trouble concentrating on things, such as reading the newspaper or watching television: not at all 8. Moving or speaking so slowly that other people could have noticed. Or the opposite - being so fidgety or restless that you have been moving around a lot more than usual: not at all 9. Thoughts that you would be better off or of hurting yourself in some way: not at all Total score: 0 Depression Screening Interpretation: Negative Depression Screening Done: Yes 98236 - PHQ-9 Billing: Yes Source: Developed by Drs. Willie Burns, Cora Guzmán, Phu Reynoso and colleagues, with an educational charlette from [employer]. Thrive Questionnaire Date Thrive assessed: 10/03/24 I am a: Patient What is your living situation today?: I have a steady place to live Within the past 12 months, did the food you bought not last and you didn't have the money to get more?: Never true Within the past 12 months, did you worry whether your food would run out before you got money to buy more?: Never true Do you have trouble paying for medicines?: No Do you have trouble getting transportation to medical appointments?: No Do you have trouble paying your heating and electricity bill?: No Do you have trouble taking care of your child, family member or friend?: No Do you have trouble with day-to-day activities such as bathing, preparing meals, shopping, managing finances, etc.?: No Are you currently unemployed and looking for a job?: No Are you interested in more education?: No Please select the resources that you would like help with: None Currently or been in a relationship where the following occur: No concerns reported THRIVE Score: 0 AUDIT C Alcohol Use Questionnaire (AUDIT-C) 1. How often do you have a drink containing alcohol?: Never 3. How often do you have six or more drinks on one occasion?: Never Total Score: 0 Score Reviewed/Action Taken: Yes CANDE-7 AMB Questionnaire CANDE-7 Date CANDE - 7 assessed: 10/03/24 Feeling nervous, anxious, or on edge: 0 = Not at all Not being able to stop or control worryin = Not at all Worrying too much about different things: 0 = Not at all Trouble relaxin = Not at all Being so restless that it is hard to sit still: 0 = Not at all Becoming easily annoyed or irritable: 0 = Not at all Feeling afraid as if something awful might happen: 0 = Not at all Total CANDE-7 score (0-4 normal; 5-9 mild; 10-14 moderate; 15-21 severe): 0 Source: Developed by Drs. Willie Burns, Cora Guzmán, Phu Reynoso and colleagues, with an educational charlette from [employer]. CANDE-7 Assessment Billing CANDE-7 Assessment Tool: CANDE-7 Assessment 76071 Review of Systems Const Denies chills, Reports excessive sweating (lately, especially when she is working), Denies fatigue, Denies fever(s) and Denies headache(s) ENT Denies dysphagia, Denies dizziness, Denies otalgia, Denies headache(s), Denies neck pain, Denies odynophagia and Denies sore throat Card Denies chest pain, Denies irregular heart rhythm, Denies palpitations and Reports dyspnea on exertion (at times, mild) Resp Denies chest congestion, Denies cough and Reports dyspnea on exertion (at times, mild) GI Denies abdominal pain, Denies constipation, Denies dysphagia, Denies heartburn, Denies diarrhea, Denies nausea, Denies odynophagia and Denies vomiting Denies hematuria, Denies urinary frequency, Denies dysuria, Reports urinary incontinence (at times) and Denies urinary urgency Musc Reports back pain (over the lower back), Reports arthralgias (in left hip and right shoulder ) and Denies neck pain Skin/Breast Denies rash Neuro Denies dizziness, Denies headache(s) and Denies paresthesias Psych Denies anxiety and Denies depression Endo Reports excessive sweating (lately, especially when she is working), Denies fatigue and Denies palpitations Jourdan/Lymph Denies easy bruising Physical exam (Primary Care) Vital Signs: Last Vital Signs Pulse 80 10/03/24 12:32 BP 136/82 10/03/24 12:32 Pulse Ox 97 10/03/24 12:32 Oxygen Delivery Method Room Air 10/03/24 12:32 BMI result Body Mass Index 31.7 Tobacco/Smoking Status: Tobacco use Status Tobacco use date assessed 10/03/24 10/03/24 12:38 Patient Tobacco Use Status Never used Tobacco 10/03/24 12:38 e-Cigarette/Vaping Use Never Used 10/03/24 12:38 PHQ-9: PHQ-9 Score PHQ-9: Total score 0 10/03/24 13:01 Depression Screening Interpretation: Negative Thrive Assessment: Date of Thrive Assessment Date Thrive assessed 10/03/24 12 12:38 Currently or been in a relationship where the following occur: No concerns reported Const General: no acute distress and alert HENMT Ears: TM's normal bilaterally and EAC's normal Throat: Yes posterior oropharynx normal and Yes tonsils normal (no TP congestion) Neck Neck: Yes supple and No lymphadenopathy Thyroid: Thyroid normal Resp Auscultation: clear to auscultation bilaterally, no rales and no wheezes Cardio Rate: regular rate Rhythm: regular rhythm Heart sounds: no murmurs GI Palpation (GI): Soft to palpation and nontender Auscultation: normal bowel sounds General: Yes no CVA tenderness Back/Spine/Pelvis Back: no CVA tenderness Thoracic/Lumbar Spine: lumbar spinal tenderness Skin Rashes: no rashes Extrem General: Yes no clubbing, cyanosis or edema Right upper extremity: shoulder/upper arm Details: tenderness Location: of the A-C joint Left lower extremity: hip/thigh Details: tenderness Location: of the hip and foot Details: tenderness Location: of the dorsal foot and no edema Results Reviewed Results Reviewed: Laboratory Tests 09/26/24 09/26/24 07:54 07:59 WBC 7.1 Hgb 12.6 Hct 38.7 Plt Count 265 Sodium 141 Potassium 4.0 Creatinine 0.80 Estimated GFR > 60 Fasting Glucose 112 H Hemoglobin A1c % 6.0 Calcium 9.6 AST 30 ALT 30 Triglycerides 114 Cholesterol 185 LDL Cholesterol, Calc 106 H HDL Cholesterol 57 25-OH Vitamin D Total 43.4 TSH 1.77 Ur Specific [place]erral 1.020 Urine Protein Negative Urine Glucose (UA) Negative Urine Blood Negative Urine Nitrite Negative Ur Leukocyte Esterase Small (1+) H Coding Level of Care Code Est Pt Level 4 (98865) Diagnoses Pure hypercholesterolemia E78.00 Benign essential hypertension I10 Impaired fasting glucose R73.01 Elevated LFTs R79.89 GERD without esophagitis K21.9 Female bladder prolapse N81.10 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 D04.61 Age-related osteoporosis without current pathological fracture M81.0 Osteoporosis type: age-related Presence of current pathological fracture: without current pathological fracture Varicose veins of both lower extremities with pain I83.813 Midline low back pain without sciatica, unspecified chronicity M54.50 Back pain laterality: midline Chronicity: unspecified Sciatica presence: without sciatica Left hip pain M25.552 Primary osteoarthritis of right shoulder M19.011 Osteoarthritis type: primary Anxiety F41.9 Obesity (BMI 30-39.9) E66.9 Additional Codes CANDE-7 Assessment Billing - CANDE-7 Assessment Tool: CANDE-7 Assessment 09672 ([id number]) PHQ-9 - 02872 - PHQ-9 Billing: Yes ([id number]) Assessment & Plan Assessment & Plan (1) Pure hypercholesterolemia: Code(s): E78.00 - Pure hypercholesterolemia, unspecified Category: Medical Plan: Results of her labs done last week reviewed and discussed with patient - she is advised that her cholesterol levels have improved slightly from previous Reinforced low cholesterol diet Will recheck her labs and fasting lipids in 4 months for follow up (2) Benign essential hypertension: Code(s): I10 - Essential (primary) hypertension Category: Medical Plan: Reinforced low sodium diet - goal is systolic BP of at least 130 mm or less Continue HCTZ 25 mg QD and Losartan 50 mg QD (3) Impaired fasting glucose: Code(s): R73.01 - Impaired fasting glucose Category: Medical Plan: Her HgbA1c has increased slightly further to 6.0% on her recent labs (was at 5.8% a few months ago and normal at 5.4% earlier this year) Reinforced low calorie/low carb diet, exercise as tolerated (4) Elevated LFTs: Code(s): R79.89 - Other specified abnormal findings of blood chemistry Category: Medical Plan: Her LFTs have remained normal on her recent labs Will continue to monitor her LFTs regularly (5) GERD without esophagitis: Code(s): K21.9 - Gastro-esophageal reflux disease without esophagitis Category: Medical Plan: Dietary restrictions reinforced Continue Omeprazole to 20 mg BID Follow up with GI as scheduled - had repeat EGD last done a couple of years ago (2021) (6) Female bladder prolapse: Code(s): N81.10 - Cystocele, unspecified Category: Medical Plan: S/P surgery (bladder lift) with Dr. Tita Gonzalez last year on 07/04/[address] 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: Code(s): D04.61 - Carcinoma in situ of skin of right upper limb, including shoulder Category: Medical Plan: S/P surgical excision Follow up with oncology and dermatology as scheduled for continuing surveilance (8) Osteoporosis: Code(s): M81.0 - Age-related osteoporosis without current pathological fracture Category: Medical Qualifiers: Osteoporosis type: age-related Presence of current pathological fracture: without current pathological fracture Qualified Code(s): M81.0 - Age- related osteoporosis without current pathological fracture Plan: Her BMD done in April 2022 revealed findings of osteoporosis - (+) osteoporosis based on the lowest T-score value of -3.2 in the lumbar spine Reinforced fall precautions and patient is instructed to continue taking her Vitamin D and oral Calcium supplements daily Have offered to start her on treatment or refer her to Endocrinology for further management but patient declined - states that she would like to hold off on this for now and will call for orders/referral if she feels ready to do so Will consider having her get repeat BMD at her next follow up appt in 4 months (January 2025) (9) Varicose veins of both lower extremities with pain: Code(s): I83.813 - Varicose veins of bilateral lower extremities with pain Category: Medical Plan: Follow up with vascular surgery as scheduled (10) Low back pain: Code(s): M54.50 - Low back pain, unspecified Category: Medical Qualifiers: Back pain laterality: midline Chronicity: unspecified Sciatica presence: without sciatica Qualified Code(s): M54.50 - Low back pain, unspecified Plan: Reinforced activity and weight-lifting restrictions so as not to aggravate her low back pain Lumbar spine x-rays done back in 2016 revealed (+) mild degenerative changes over the lumbar spine Repeat lumbar spine x-rays done last September 2023 revealed similar findings although x-rays revealed the presence of a 6th lumbar vertebra - (+) 6 lumbar- type vertebral bodies; degenerative disc disease at L6-S1 and degenerative facet joint disease at L5-L6 and L6-S1 (11) Left hip pain: Code(s): M25.552 - Pain in left hip Category: Medical Plan: Left hip x-rays back in September 2023 revealed (+) mild OA changes Can consider referral to orthopedics if her hip symptoms get worse (12) Osteoarthritis of right shoulder: Code(s): M19.011 - Primary osteoarthritis, right shoulder Category: Medical Qualifiers: Osteoarthritis type: primary Qualified Code(s): M19.011 - Primary osteoarthritis, right shoulder Plan: Right shoulder x-rays done in September 2023 revealed (+) moderate to severe OA changes in the AC joint Have advised her to see orthopedics if her shoulder pain gets worse - she may benefit from cortisone injection(s) when appropriate (13) Anxiety: Code(s): F41.9 - Anxiety disorder, unspecified Category: Medical Plan: Continue Lorazepam 0.5 mg TID PRN Continue Bupropion XL 150 mg Q AM She was started on Citalopram [address] Levi last year but she could not tolerate the Rx She was in turn started on Sertraline 25 mg QD by neurology a few months ago but she has not started on the Rx yet - is not sure if she wants to take it or not and she still has not yet made up her mind about this (14) Obesity (BMI 30-39.9): Code(s): E66.9 - Obesity, unspecified Category: Medical Plan: Reinforced diet/exercise as tolerated/lose weight Plan Follow up in 4 months Orders: Orders Hemoglobin A1c 4 Months R73.01 - Impaired fasting glucose Complete Blood Count Auto Diff 4 Months D64.9 - Anemia, unspecified Comprehensive [place]. Panel Fast 4 Months E78.00 - Pure hypercholesterolemia, unspecified Lipid Panel 4 Months E78.00 - Pure hypercholesterolemia, unspecified TSH reflex Free T4 4 Months E78.00 - Pure hypercholesterolemia, unspecified UA CC w/rflx Micro + Cult 4 Months R30.0 - Dysuria Vitamin D 25-OH Total 4 Months E55.9 - Vitamin D deficiency, unspecified
--- OUTSIDE RECORDS SUMMARY | 2024-10-04 02:04 | XMS_ITS | Continuity of Care Document ---
Author Organization [facility] Address [address] [place] [address] Phone Care Team Providers Care Cafeteria Cook Name Role Phone Venkata LEDESMA, RVT, RPVI, [...] Providers Copied on Encounter [facility], [address], [place], [id number], [place] tel:[phone] [place] Nevus, non-neoplastic 4 Venkata LEDESMA, JUSTINT, PACO Tapia. [address], [place], [id number], [place]. tel:[phone] Referring Provider: Sandip Ricardo MD, [address], [place], [address]. tel:[phone] [facility], [address] [place] [address] Dr [address]Tom [place], [id number], [place] tel:[phone] [place] Nevus, non-neoplastic 4 [facility] EARLE Miller. [address], [address], [place], [place], [id number], [place]. tel:[phone] Referring Provider: Sandip Ricardo MD, [address], [place], [address]. tel:[phone] [facility], [address] [place] [address] [address] [place], [id number], [place] tel:[phone] [place] Nevus, non-neoplastic 4 Venkata LEDESMA, RVT, RPVI Willie. [address], [place], [place], [id number], [place]. tel:[phone] Referring Provider: Sandip Ricardo MD, [address], [place], [address]. tel:[phone] [facility], [address] [place] [address] [address] [address]Tom [place], [id number], [place] tel:[phone] [place] Nevus, non-neoplastic 4 [facility] EARLE Miller. [address], [place], [place], [id number], [place]. tel:[phone] Referring Provider: Sandip Ricardo MD, [address], [place], [address]. tel:[phone] Office/Outpt E&M Established 15 Mins- CT & [place] [facility], [address] [place] [address] [address]Tom [place], [id number], [place] tel:[phone] [place] Lymphedema, not elsewhere classifiedHere ditary lymphedemaEsse ntial (primary) hypertensionPr uritus, unspecifiedLoc alized edemaVenous insufficiency (chronic) (peripheral) 4 Venkata LEDESMA RVT, PACO Tapia. [address], [address], [place], [place], [id number], [place]. tel:[phone] Referring Provider: Sandip Ricardo MD, [address] [place] [address] [address], [place], [address]. tel:[phone] [facility], [address] [place] [address] [address]Tom [place], [id number], [place] tel:[phone] [place] Encounter for follow-up examination after completed treatment for conditions other than malignant neChronic venous hypertension (idiopathic) with other complications of bilateral lower extremity 4 Venkata LEDESMA RVT, PACO Tapia. [address], [place], [place], [id number], [place]. tel:[phone] Referring Provider: Sadnip Ricardo MD, [address] [place] [address] [address], [place], [address]. tel:[phone] [facility], [address] [place] [address] [address]Suite Tom Cooper [place], [id number], [place] tel:[phone] CVR - [facility] Encounter for follow-up examination after completed treatment for conditions other than malignant neVaricose veins of right lower extremity with pain 4 Venkata LEDESMA RVT, PACO Tapia. [address], [address], [place], [place], [id number], [place]. tel:[phone] Referring Provider: Sandip Ricardo MD, [address] [place] [address] [address], [place], [address]. tel:[phone] [facility], [address] [place] [address] [address] 1000Tom [place], [id number], [place] tel:[phone] CVR - [facility] Chronic venous hypertension (idiopathic) with inflammation of right lower extremity Jan- 4 Tunde EARLE Angela. [address], [address], [facility] [place], [id number], [place]. tel:[phone] Referring Provider: Sandip Ricardo MD, [address] [place] [address] Dr [address], [place], [address]. tel:[phone] [facility], [address] [place] [address] 1000Suite Tom Cooper [place], [id number], [place] tel:[phone] CVR - [facility] Encounter for follow-up examination after completed treatment for conditions other than malignant neChronic venous hypertension (idiopathic) with other complications of left lower extremity Jan- 4 Venkata LEDESMA RVT, PACO Tapia. [facility], [address] [facility], [facility] [place] [place], [id number], [place]. tel:[phone] Referring Provider: Sandip Ricardo MD, [address] [place] [address] Dr [address], [place], [address]. tel:[phone] [facility], [address] [place] [address] [address] [place] Cooper [place], [id number], [place] tel:[phone] CVR [facility] Chronic venous hypertension (idiopathic) with inflammation of right lower extremity Apr- 4 Venkata LEDESMA RVT, RPVI Robert. [address] [place] [address], [place] [address], [facility] [place] [place], [id number], [place]. tel:[phone] Referring Provider: Sandip Ricardo MD, [address] [place] [address] [address], [place], [address]. tel:[phone] [place] [facility], [address] [place] [address] [address] Tom Cooper [place], [id number], [place] tel:[phone] CVR - [facility] Encounter for follow-up examination after completed treatment for conditions other than malignant ne Jan- 4 Venkata LEDESMA RVT, RPVI Robert. [facility], [facility] [place], [id number], [place]. tel:[phone] Referring Provider: Sandip Ricardo MD, [address], [place], [address]. tel:[phone] [facility], [address] [place] [address] [address]SuTom brady [place], [id number], [place] tel:[phone] [place] Chronic venous hypertension (idiopathic) with inflammation of left lower extremity Apr-0 4 Tunde Miller. [address], [address] [facility], [place], [place], [id number], [place]. tel:[phone] Referring Provider: Sandip Ricardo MD, [address] [place] [address] Dr [address] [facility], [place], [address]. tel:[phone] [facility], [address] [place] [address] [address]Suite Tom Cooper [place], [id number], [place] tel:[phone] CVR - [facility] Chronic venous hypertension (idiopathic) with other complications of left lower extremity Apr-0 4 Venkata LEDESMA, HARITHA, PACO Tapia. [facility], [place] [address], [place], [place], [id number], [place]. tel:[phone] Referring Provider: Sandip Ricardo MD, [address] [place] [address] Dr [address], [place], [address]. tel:[phone] [facility], [address] [place] [address] [address]Suite Tom Cooper [place], [id number], [place] tel:[phone] CVR - [facility] Chronic venous hypertension (idiopathic) with inflammation of left lower extremity Apr-0 4 Venkata LEDESMA RVT, PACO Tapia. [address] [place] [address], [place] [address], [place], [place], [id number], [place]. tel:[phone] Referring Provider: Sandip Ricardo MD, [address], [place], [address]. tel:[phone] [facility], [address] [place] [address] [address]Suite Tom Cooper [place], [id number], [place] tel:[phone] [place] Varicose veins of left lower extremity with other complications Apr-0 4 Venkata LEDESMA, RVT, PACO Tapia. [address] [place] [address], [place], [place], [id number], [place]. tel:[phone] Referring Provider: Sandip Ricardo MD, [address], [place], [address]. tel:[phone] [place] [facility], [address] [place] [address] [address]Suite Tom Cooper [place], [id number], [place] tel:[phone] CV[place] Venous insufficiency (chronic) (peripheral) 4 Petros LEDESMA FACS RVT PACO Bender. [address] [place] [address], [place], [address], [place]. tel:[phone] 11-20 Min Medical Discussion On Phone [place] [facility], [address] [place] [address] [address]Suite Tom Cooper [place], [id number], [place] tel:[phone] CVR [place] Varicose veins of right lower extremity with inflammationVa ricose veins of left lower extremity with inflammationLo calized edemaCramp and spasmEssential (primary) hypertensionPr uritus, unspecifiedDis order of pigmentation, unspecified 4 Jannette Prakash. [address] [address], [place], [place], [id number], [place]. tel:[phone] Referring Provider: Sandip Ricardo MD, [address], [place], [address]. tel:[phone] Office/Oupt E&M New Pt 45 Mins [place] [facility], [address] [place] [address] [address] 1000Tom [place], [id number], [place] tel:[phone] CVR - [place] Varicose veins of bilateral lower extremities with other complicationsV aricose veins of right lower extremity with inflammationVa ricose veins of left lower extremity with inflammationPa in in right lower legEssential (primary) hypertensionPr uritus, unspecifiedDis order of pigmentation, unspecifiedPai n in right legPain in left legPain in left lower legCramp and spasmLocalized edema 4 Venkata LEDESMA RVT, PACO Tapia. [address], [facility] [address], [facility] [place] [place], [id number], [place]. tel:[phone] Referring Provider: Sandip Ricardo MD, [address] [place] [address] Dr [address], [place], [address]. tel:[phone] [facility], [address], [place], [id number], [place] tel:[phone] [facility] Chronic venous hypertension (idiopathic) with other complications of bilateral lower extremity 4 Venkata LEDESMA, HARITHA, PACO Tapia. [address], [place] [address], [facility] [place], [id number], [place]. tel:[phone] Referring Provider: Sandip Ricardo MD, [address] [place] [address] Dr [address], [place], [address]. tel:[phone] Family History Family Member Type Diagnosis Age At Onset No Information Payers Payer name Insurance type Covered libertarian ID Authoriza tion(s) No Information Social History [...] No Information Instructions Date Instruction Additional Infor kristynion Lifestyle education Related to B john mass index (BMI) 29.0-29.9, adult Diet education Related to Body mass index (BMI) 29.0-29.9, adult Patient education booklet given Related to Localized edema Compression stocking usage as conservative measure Related to Localized edema Giving Encouragement to exercise Related to Body mass index (BMI) 29.0-29.9, adult Patient education booklet given Related to Varicose veins of right lower extremity with inflammation Patient education booklet given Related to Varicose veins of bilateral lower extremities with other complications Lifestyle education Related to B john mass index (BMI) 29.0-29.9, adult Giving Encouragement to exercise Related to Body mass index (BMI) 29.0-29.9, adult Diet education Related to Body mass index (BMI) 29.0-29.9, adult Pre and post instruc tions reviewed and provided Related to Varicose veins of bilateral lower extremities with other complications Assessments Type Assessment Date assessment Nevus, non-neoplastic 4 Patient Care Teams Name Effective Dates (start - stop) Status Members No Information
== END 2024-10-03 13:18 | disposition home or self-care (01) ==
PROVIDERS: PCP Internal Medicine; Visit Provider Internal Medicine
DX: E78.00 Pure hypercholesterolemia, unspecified (principal); I10 Essential (primary) hypertension; R73.01 Impaired fasting glucose; R79.89 Other specified abnormal findings of blood chemistry; K21.9 Gastro-esophageal reflux disease without esophagitis; N81.10 Cystocele, unspecified; D04.61 Carcinoma in situ of skin of right upper limb, including shoulder; M81.0 Age-related osteoporosis without current pathological fracture; I83.813 Varicose veins of bilateral lower extremities with pain; M54.50 Low back pain, unspecified; M25.552 Pain in left hip; M19.011 Primary osteoarthritis, right shoulder

== ENCOUNTER → 2024-10-03 12:26 | Outpatient (BNVA) | payer BC, SELFPAY | PROVIDERS: PCP Internal Medicine; Visit Provider Internal Medicine | DX: E78.00 Pure hypercholesterolemia, unspecified (principal); I10 Essential (primary) hypertension; R73.01 Impaired fasting glucose; R79.89 Other specified abnormal findings of blood chemistry; K21.9 Gastro-esophageal reflux disease without esophagitis; N81.10 Cystocele, unspecified; M81.0 Age-related osteoporosis without current pathological fracture; I83.813 Varicose veins of bilateral lower extremities with pain; M54.50 Low back pain, unspecified; M25.552 Pain in left hip; M19.011 Primary osteoarthritis, right shoulder; F41.9 Anxiety disorder, unspecified; E66.9 Obesity, unspecified; Z68.31 Body mass index [BMI] 31.0-31.9, adult; Z79.899 Other long term (current) drug therapy | CPT/HCPCS: 96127 ==

== ENCOUNTER 2024-11-28 08:56 | Outpatient (REF) | payer BC, SELFPAY | END 2024-11-28 08:57 | disposition home or self-care (01) | LOC: HO.LNP 08:56 | PROVIDERS: PCP Internal Medicine; Visit Provider Internal Medicine | DX: N30.01 Acute cystitis with hematuria (principal) | CPT/HCPCS: 81003; 87086; 87088; 87186 ==

== ENCOUNTER 2025-03-29 09:00 | Outpatient (REF) | payer BC, SELFPAY ==
--- NOTE | ~2025-03-29 | MM_ITS ---
EXAMINATION: MM SCREENING DIGITAL BREAST TOMOSYNTHESIS, BILATERAL CLINICAL INFORMATION: Screening. Asymptomatic. COMPARISON: Mammography: Comparison is made with available priors TECHNIQUE: Digital breast mammography with tomosynthesis is performed in both the craniocaudal and mediolateral oblique views along with computer-aided detection (CAD). FINDINGS: The breasts are heterogeneously dense, which may obscure small masses (ACR BI-RADS breast composition Category c). There are no significant masses, abnormal calcifications, or other abnormalities. MM/MM tomosynthesis screening BI IMPRESSION: No mammographic evidence of malignancy. ASSESSMENT: BI-RADS BI-RADS 1 - Negative RECOMMENDATION: Routine annual mammography screening. 1 year F/U This examination should not preclude the clinical evaluation of a suspicious palpable abnormality. This patient's information was entered into a reminder system with a target due date for their next mammogram. Electronically signed by: Nena White DO 04/02/2025 05:52 PM EDT
== END 2025-03-29 09:01 | disposition home or self-care (01) ==
LOC: HO.MAMMO 09:00
PROVIDERS: PCP Internal Medicine; Visit Provider Internal Medicine
DX: Z12.31 Encounter for screening mammogram for malignant neoplasm of breast (principal)
CPT/HCPCS: 77063; 77067

== ENCOUNTER → 2025-03-29 09:15 | Outpatient (BNV) | payer BC, SELFPAY | PROVIDERS: PCP Internal Medicine; Visit Provider Internal Medicine | DX: Z12.31 Encounter for screening mammogram for malignant neoplasm of breast (principal) | CPT/HCPCS: 77063; 77067 ==